=== PATIENT | male | born 1995 | race Two or more races ===

== ENCOUNTER → 2020-04-18 08:24 | Outpatient (BNVA) | payer MEDICAID, SELFPAY | PROVIDERS: PCP Internal Medicine; Visit Provider Surgery | DX: Z76.89 Persons encountering health services in other specified circumstances (principal) ==

== ENCOUNTER → 2020-05-10 09:04 | Outpatient (BNVA) | payer MEDICAID, SELFPAY | PROVIDERS: Visit Provider Dietitian, Registered | DX: Z76.89 Persons encountering health services in other specified circumstances (principal) ==

== ENCOUNTER → 2020-05-17 08:22 | Outpatient (BNVA) | payer MEDICAID, SELFPAY | PROVIDERS: Visit Provider Surgery | DX: Z76.89 Persons encountering health services in other specified circumstances (principal) ==

== ENCOUNTER → 2020-06-09 08:20 | Outpatient (BNVA) | payer MEDICAID, SELFPAY | PROVIDERS: PCP Internal Medicine; Visit Provider Surgery ==

== ENCOUNTER → 2020-06-12 08:22 | Outpatient (BNVA) | payer MEDICAID, SELFPAY | PROVIDERS: PCP Internal Medicine; Visit Provider Dietitian, Registered ==

== ENCOUNTER 2020-10-10 10:50 | Outpatient (REF) | payer MEDICAID, SELFPAY ==
--- NOTE | ~2020-10-10 | XR_ITS ---
EXAMINATION: XR TIBIA AND FIBULA, RIGHT CLINICAL INFORMATION: Right leg pain. COMPARISON: 05/13/2014 TECHNIQUE: AP and lateral views of the right tibia and fibula were obtained. FINDINGS: Again seen is an intramedullary jose david through the length of the tibia with 1 proximal screw and 2 distal screws with 1 entering the fibula. Healed fractures are present involving the distal fibular and tibial diaphyses. Appearances are unchanged when compared to the 2014 study. No new finding is seen to account for increasing pain in the right leg. XR/XR tibia fibula RT 2V IMPRESSION: Stable postoperative findings with healed fractures and hardware, as described above.
== END 2020-10-10 10:51 | disposition home or self-care (01) ==
LOC: HO.XRAY 10:50
PROVIDERS: PCP Internal Medicine; Visit Provider Internal Medicine
DX: M79.604 Pain in right leg (principal)
CPT/HCPCS: 73590

== ENCOUNTER → 2020-10-25 14:56 | Outpatient (REF) | payer MEDICAID, SELFPAY ==
--- NOTE | 2020-10-25 14:59 | CA_ITS ---
Transthoracic Echocardiogram Patient (Last, First, Middle): Evin Martinez, Gender: Male Date of : 1995 Age: 25 Procedure Date: 10/25/2020 Procedure Type: Transthoracic Echocardiogram Location: OP Height: 165.1 cm Weight: 166.47 kg BSA: 2.56 m2 Heart Rate: bpm BP: 134 / 80 mmHg Regulatory Affairs Specialist: Referring MD: Roney Nino MD Symptoms: R60.9 EDEMA Study Quality: Fair ECG Rhythm: Sinus Conclusions: - Normal study Findings Left Ventricle Normal left ventricular size, thickness, and systolic function. The visually estimated ejection fraction is between 60-65%. Spectral Doppler is indicative of a normal filling pattern. Right Ventricle Normal right ventricular cavity size and systolic function. Atria Both atria are normal in size. Interatrial shunt cannot be excluded. Aortic Valve Normal aortic valve structure and function. There is no aortic valve stenosis. There is no aortic valve regurgitation. Mitral Valve Likely normal mitral valve structure and function. There is trace mitral valve regurgitation. There is no mitral valve stenosis. Pulmonic Valve The pulmonic valve was not well visualized. Tricuspid Valve Likely normal tricuspid valve structure and function. There is trace tricuspid valve regurgitation. The right ventricular systolic pressure is normal. The right ventricular systolic pressure is 16 mmHg. Normal right atrial pressure. There is no evidence of pulmonary hypertension. Great Vessels All visible segments of the aorta are normal in size. The pulmonary artery was not well visualized. Venous The inferior vena cava is normal in size and collapses greater than 50% with inspiration. Pericardium/Pleural There is no evidence of pericardial effusion. Prior Study Comparison No prior study available for comparison. Measurements 2D Linear Measurements IVSd: 0.95 0.6-0.9/0.6-1.0 cm LVIDd: 4.33 3.9-5.3/4.2-5.9 cm LVIDd Index: 1.69 2.4-3.2/2.2-3.1 cm/m2 LVIDs: 2.70 2.0-3.6 cm LVPWd: 1.05 0.7-1.1 cm Ao Root: 2.60 2.1-3.5 cm LA Diam: 3.50 2.7-3.8/3.0-4.0 cm LAIDs Index: 1.37 1.5-2.3 cm/m2 LV Mass: 241.14 67-162/88-224 g LV Mass Index: 94.19 43-95/49-115 g/m2 LVOT Diam: 2.00 3.0+(-)1.3 cm Mitral Valve MV Pk E: 1.11 MV PK A: 0.75 MV Decel Time: 155.00 E/A: 1.50 E'Lateral: 14.70 E'Medial: 10.10 E/E' Med: 11.00 E/E' Lat: 7.60 PHT: 45.00 MVA PHT: 4.89 Decel [place]: 7.12 Aortic Valve AoV Pk [place]: 1.68 AoV Mn [place]: 1.03 AoV VTI: 0.32 AoV Pk Grad: 11.00 Aov Mn Grad: 5.00 [place] Cont.VTI: 2.36 LVOT LVOT Pk [place]: 1.28 LVOT Mn [place]: 0.89 LVOT VTI: 0.24 LVOT Pk Grad: 7.00 LVOT Mn Grad: 4.00 LVOT Diam: 2.00 LVOT Area: 3.14 Diastolic Function MV Pk E: 1.11 MV Pk A: 0.75 E/A: 1.50 E'Medial: 10.10 E/E' Med: 11.00 E' Laterial: 14.70 E/E' Lat: 7.60 Tricuspid Valve TR Pk [place]: 1.81 TR Pk Grad: 13.00 RA Press: 3.00 RVSP: 16.00 Great Vessels Aorta Ao Root-2D: 2.60 2.0-3.7 cm Ao Asc: 2.60 2.1-3.4 cm Pulmonary Valve PV Pk [place]: 1.32 Peak PV Grad: 7.00 Updated in Other Vendor System with Status of Final Wayne Wolf MD electronically signed on 10/25/2020 5:04:37 PM with status of Final
== END ==
LOC: HO.CARD 14:56
PROVIDERS: Visit Provider Internal Medicine Cardiovascular Disease
DX: R60.9 Edema, unspecified (principal)
CPT/HCPCS: 93306

== ENCOUNTER 2021-05-30 12:55 | Outpatient (REF) | payer MEDICAID, SELFPAY ==
--- NOTE | ~2021-05-30 | XR_ITS ---
EXAMINATION: XR LUMBOSACRAL SPINE CLINICAL INFORMATION: Low back pain COMPARISON: None. TECHNIQUE: Three views of the lumbosacral spine. FINDINGS: There is normal lumbar lordosis. The vertebral heights, alignment and disc heights are normal. No visible acute fracture, dislocation or subluxation seen. The SI joints are symmetrical and normal The paravertebral soft tissues are normal. XR/XR lumbar spine 2-3V IMPRESSION: Unremarkable lumbar spine examination.
[2021-05-30 13:21] LABS: MANUAL DIFF FLAG NO
[2021-05-30 13:38] LABS: Basophils Absolute Auto 0.1 X10*3/uL (0.0-0.2); Basophils Percent Auto 1.1 % (0-2); Eosinophils Absolute Auto 0.5 X10*3/uL (0.0-0.4); Eosinophils Percent Auto 6.3 % (0-4); Hematocrit 43.1 % (42.0-52.0); Hemoglobin 12.9 g/dl (14.0-18.0); Imm Gran Abs Auto 0.01 X10*3/uL (0.00-0.03); Imm Gran Pct Auto 0.1 % (0.0-0.4); Lymphocytes Absolute Auto 3.2 X10*3/uL (1.2-4.9); Lymphocytes Percent Auto 36.8 % (20-40); Mean Corpuscular HGB Conc 29.9 g/dl (31.0-36.0); Mean Corpuscular Hemoglobin 24.6 pg (27.0-33.0); Mean Corpuscular Volume 82.3 fL (80.0-98.0); Mean Platelet Volume 10.8 fL (9.4-12.4); Monocytes Absolute Auto 0.6 X10*3/uL (0.1-1.2); Monocytes Percent Auto 7.3 % (2-11); Neutrophils Absolute Auto 4.1 x10*3/uL (2.0-8.3); Neutrophils Percent Auto 48.4 % (45-73); Platelet Count 397 X10*3/uL (160-400); Red Blood Count 5.24 X10*6/uL (4.60-5.80); Red Cell Distribution Width 19.4 % (11.0-16.0); White Blood Count 8.6 X10*3/uL (4.8-10.8)
[2021-05-30 13:48] LABS: Estimated Average Glucose 131 mg/dL; Hemoglobin A1C 152.3961 umol/L; Hemoglobin A1c % 6.2 %
[2021-05-30 14:21] LABS: Alanine Aminotransferase 44 U/L (0-40); Albumin Level 4.7 g/dL (3.5-5.0); Alkaline Phosphatase 72 U/L (39-117); Anion Gap 15 (12-20); Aspartate Amino Transferase 28 U/L (5-37); Bilirubin Direct 0.2 mg/dL (0.0-0.5); Bilirubin Total 0.5 mg/dL (0.0-1.0); Blood Urea Nitrogen 15 mg/dL (9-16); Calcium 10.5 mg/dL (8.4-10.2); Carbon Dioxide 28 mmol/L (22-29); Chloride 99 mmol/L (96-108); Cholesterol 220 mg/dL; Estimated Glomerular Filt Rate > 60; Glucose Random 87 mg/dL (60-115); HDL Cholesterol 58 mg/dL; LDL Cholesterol Calculated 135 mg/dl; Potassium 4.2 mmol/L (3.3-5.1); Sodium 138 mmol/L (135-145); Total Protein 8.1 g/dL (6.5-8.0); Triglycerides 139 mg/dL
[2021-05-30 14:39] LABS: Vitamin D 25-OH Total 15.4 ng/mL (>30)
[2021-05-30 15:14] LABS: TSH reflex Free T4 > 100.00 uIU/mL (0.32-4.0)
[2021-05-30 15:58] LABS: Free T4 (Free Thyroxine) < 0.40 ng/dL (0.71-1.85)
== END 2021-05-30 12:56 | disposition home or self-care (01) ==
LOC: HO.XRAY 12:55
PROVIDERS: PCP Internal Medicine; Visit Provider Internal Medicine
DX: Z00.00 Encounter for general adult medical examination without abnormal findings (principal); M54.50 Low back pain, unspecified
CPT/HCPCS: 36415; 72100; 80048; 80061; 80076; 82306; 83036; 84439; 84443; 85025

== ENCOUNTER 2021-07-05 11:13 | Outpatient (REF) | payer MEDICAID, SELFPAY ==
--- NOTE | ~2021-07-05 | XR_ITS ---
EXAMINATION: XR TIBIA AND FIBULA, LEFT CLINICAL INFORMATION: Injury, pain COMPARISON: Radiographs left lower leg 06/03/2013 TECHNIQUE: Left lower leg is imaged in 2 AP views and 2 lateral views for a total of 4 views. FINDINGS: There is old distal tibial shaft fracture is reduced with intramedullary jose david and proximal and distal interlocking screws. The hardware is intact. Fracture shows osseous union. There is a healed fracture also of the distal fibular shaft with a bony bar intraosseous region between the fibula and tibia near the fracture sites. There is no acute fracture or dislocation or destructive process. No osteolysis. No periostitis. The ankle mortise is symmetric. The subtalar joint is unremarkable. There is incidental os trigonum again developmental variant. The retrocalcaneal recess is preserved. XR/XR tibia fibula LT 2V IMPRESSION: Old healed fractures distal tibia and fibula. Hardware intact. No acute fracture, dislocation, destructive process.
== END 2021-07-05 11:14 | disposition home or self-care (01) ==
LOC: HO.XRAY 11:13
PROVIDERS: PCP Internal Medicine; Visit Provider Internal Medicine
DX: M79.605 Pain in left leg (principal); M79.604 Pain in right leg
CPT/HCPCS: 73590

== ENCOUNTER → 2021-07-09 13:25 | Outpatient (BNVA) | payer MEDICAID, SELFPAY | PROVIDERS: PCP Internal Medicine; Visit Provider Orthopaedic Surgery | DX: R60.0 Localized edema (principal); E66.01 Morbid (severe) obesity due to excess calories; S82.302S Unspecified fracture of lower end of left tibia, sequela; Z68.41 Body mass index [BMI] 40.0-44.9, adult | CPT/HCPCS: 99202 ==

== ENCOUNTER 2021-08-02 12:07 | Outpatient (REF) | payer MEDICAID, SELFPAY ==
--- NOTE | ~2021-08-02 | US_ITS ---
EXAMINATION: US VENOUS ULTRASOUND WITH DOPPLER LOWER EXTREMITY, BILATERAL CLINICAL INFORMATION: Lower extremity edema. COMPARISON: None TECHNIQUE: Ultrasound of the deep veins is performed from the hip to the calf with compression sonography and color and pulse Doppler assessment. Spectral analysis with color-flow imaging is performed. FINDINGS: Right common femoral vein: Compressible, normal color flow, normal augmentation. Proximal right great saphenous vein: Patent, normal color flow. Right profunda femoris vein: Patent, normal color flow. Right femoral vein: Compressible, normal color flow, appropriate augmentation. Right popliteal vein: Compressible, normal color flow, appropriate augmentation. Right posterior tibial vein: Normal color flow. Normal compressibility. Right peroneal vein: Normal color flow. Normal compressibility LEFT LEG: Left common femoral vein: Compressible, normal color flow, normal augmentation. Proximal left great saphenous vein: Patent, normal color flow. Left profunda femoris vein: Patent, normal color flow. Left femoral vein: Compressible, normal color flow, appropriate augmentation. Left popliteal vein: Compressible, normal color flow, appropriate augmentation. Left posterior tibial veins: Normal color flow. Normal compressibility Left peroneal veins: Not visualized due to body habitus. US/US venous duplex LE BI IMPRESSION: No definite evidence of DVT involving either lower extremity. The left peroneal veins are not visualized. If the patient's symptoms persist, followup ultrasound in 5 days 7 days might be of value to exclude proximal propagation from a non-visualized calf vein.
== END 2021-08-02 12:08 | disposition home or self-care (01) ==
LOC: HO.US 12:07
PROVIDERS: Visit Provider Orthopaedic Surgery
DX: R60.0 Localized edema (principal); E66.01 Morbid (severe) obesity due to excess calories
CPT/HCPCS: 93970

== ENCOUNTER → 2022-01-10 12:49 | Outpatient (BNVA) | payer MEDICAID, SELFPAY | PROVIDERS: PCP Internal Medicine; Referring Provider Internal Medicine; Visit Provider Physician Assistant | DX: E66.01 Morbid (severe) obesity due to excess calories (principal); E03.9 Hypothyroidism, unspecified; J45.909 Unspecified asthma, uncomplicated; G47.30 Sleep apnea, unspecified; E11.9 Type 2 diabetes mellitus without complications; Z68.44 Body mass index [BMI] 60.0-69.9, adult | CPT/HCPCS: 83013; 99212 ==

== ENCOUNTER 2022-01-10 17:40 | Outpatient (REF) | payer MEDICAID, SELFPAY ==
[2022-01-11 16:51] LABS: H Pylori Breath Test Negative (Negative)
== END 2022-01-10 17:41 | disposition home or self-care (01) ==
LOC: HO.LNP 17:40
PROVIDERS: Visit Provider Physician Assistant
DX: E03.9 Hypothyroidism, unspecified (principal); E11.9 Type 2 diabetes mellitus without complications; E66.01 Morbid (severe) obesity due to excess calories; G47.30 Sleep apnea, unspecified; J45.909 Unspecified asthma, uncomplicated
CPT/HCPCS: 83013

== ENCOUNTER → 2022-02-01 13:45 | Outpatient (BNVA) | payer MEDICAID, SELFPAY | PROVIDERS: PCP Internal Medicine; Visit Provider Dietitian, Registered | DX: E66.01 Morbid (severe) obesity due to excess calories (principal) | CPT/HCPCS: 97802 ==

== ENCOUNTER → 2022-03-01 13:40 | Outpatient (BNVA) | payer MEDICAID, SELFPAY | PROVIDERS: PCP Internal Medicine; Referring Provider Physician Assistant; Visit Provider Dietitian, Registered | DX: E66.01 Morbid (severe) obesity due to excess calories (principal) | CPT/HCPCS: 97803 ==

== ENCOUNTER 2022-07-19 11:48 | Emergency (ER) | payer MEDICAID, SELFPAY ==
--- NOTE | ~2022-07-19 | US_ITS ---
EXAMINATION: US VENOUS ULTRASOUND WITH DOPPLER LOWER EXTREMITY, BILATERAL CLINICAL INFORMATION: Bilateral leg swelling COMPARISON: October 02, 2021 TECHNIQUE: Ultrasound of the deep veins is performed from the hip to the calf with compression sonography and color and pulse Doppler assessment. Spectral analysis with color-flow imaging is performed. FINDINGS: There is some limitations to the study due to body habitus with edema of the legs. RIGHT: There is normal venous compression and respiratory variation and augmented flow. The visualized common femoral vein, superficial femoral vein, profunda femoral vein, popliteal vein, and the trifurcation region shows no evidence of deep venous thrombosis. There is no significant popliteal fossa cyst. No popliteal artery aneurysm LEFT: There is normal venous compression and respiratory variation and augmented flow. The visualized common femoral vein, superficial femoral vein, profunda femoral vein, popliteal vein, and the trifurcation region shows no evidence of deep venous thrombosis. There is no significant popliteal fossa cyst. Artery aneurysm US/US venous duplex LE BI IMPRESSION: No acute DVT demonstrated in the bilateral lower extremity.
--- NOTE | ~2022-07-19 | XR_ITS ---
EXAMINATION: XR CHEST CLINICAL INFORMATION: Pedal edema. COMPARISON: None available. TECHNIQUE: 2 views of the chest were obtained. FINDINGS: No significant abnormality is noted involving the heart, lungs, mediastinum, bony thorax or soft tissues. XR/XR chest 2V IMPRESSION: Unremarkable chest examination.
[2022-07-19 12:01] VITALS: BP 132/96; PULSE 85; RESP 18; TEMP 36.5; O2SAT 95; BMI 63.3
--- NOTE | 2022-07-19 12:03 | ED_ITS ---
HPI - General Adult General Chief complaint: Extremity Problem <KWADWO Abreu - Last Filed: 07/19/22 12:04> Stated complaint: swollen/pain in feet <KWADWO Abreu - Last Filed: 07/19/22 12:04> Time Seen by Provider: 07/19/22 12:26 <KWADWO Abreu - Last Filed: 07/19/22 12:04> History of Present Illness HPI narrative: patient with long history of pedal edema, has water pills at home but he stopped taking them as they make him urinate, comes today as legs are more swollen than normal bilaterally, he has no shortness of breath no difficulty br eathing no recent injury no chest pain, both legs ached the same, denies any fever denies any wound, no back pain no numbness or weakness <KWADWO Mcgovern - Last Filed: 07/20/22 14:15> Related Data Home medications: Home Medications Medication Instructions Recorded Confirmed cyclobenzaprine 10 mg tablet 10 mg PO TID 07/09/21 01/10/22 ferrous sulfate 325 mg (65 mg 325 mg PO BID 07/09/21 01/10/22 iron) tablet (FeroSul) hydrochlorothiazide 25 mg tablet 25 mg PO DAILY 07/09/21 01/10/22 metformin 500 mg tablet 500 mg PO BID 07/09/21 01/10/22 Previous Rx's Medication Instructions Recorded levothyroxine 50 mcg capsule 50 mcg PO DAILY #1 cap 04/18/20 <KWADWO Abreu - Last Filed: 07/19/22 12:04> Allergies/adverse reactions: Allergies Allergy/AdvReac Type Severity Reaction Status Date / Time No Known Allergies Allergy Verified 07/19/22 12:01 [No Known Allergies*] <KWADWO Abreu - Last Filed: 07/19/22 12:04> [facility] Past Medical History PMFSH Narrative: Has prior history of pedal edema <KWADWO Mcgovern - Last Filed: 07/03 12/25 14:15> Source: nursing notes reviewed <KWADWO Mcgovern - Last Filed: 07/20/22 14:15> Medical History: Medical History Asthma Back pain Hypothyroidism Prediabetes Sleep apnea with use of continuous positive airway pressure (CPAP) <KWADWO Abreu - Last Filed: 07/19/22 12:04> Surgical History: Surgical History Morbid obesity <KWADWO Abreu - Last Filed: 07/19/22 12:04> Family History Family History: Family History Mother Amputated right leg Father No problems noted. Brother No problems noted. Brother No problems noted. Sister No problems noted. <KWADWO Abreu - Last Filed: 07/19/22 12:04> Social History Social History: Social History (Updated 01/10/22 @ 13:15 by Evelyn Vuong 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 <KWADWO Abreu - Last Filed: 07/19/22 12:04> Physical Exam ED Vital Signs: Vital Signs - 24 hr 07/19/22 12:01 07/19/22 14:00 Temperature 97.7 F Pulse Rate 85 95 Respiratory Rate 18 18 Blood Pressure 132/96 H 137/82 Pulse Oximetry 95 97 Oxygen Delivery Method Room Air Room Air BMI result Body Mass Index 63.3 <KWADWO Abreu - Last Filed: 07/19/22 12:04> Vital Signs - 24 hr 07/19/22 12:01 07/19/22 14:00 Temperature 97.7 F Pulse Rate 85 95 Respiratory Rate 18 18 Blood Pressure 132/96 H 137/82 Pulse Oximetry 95 97 Oxygen Delivery Method Room Air Room Air BMI result Body Mass Index 63.3 <KWADWO Mcgovern - Last Filed: 07/20/22 14:15> General appearance is no acute distress The pharynx is clear no redness swelling or exudate The neck no JVD The chest is clear to auscultation with full symmetrical equal breath sounds no adventitious sounds Heart no murmur auscultated Abdomen soft nontender Extremities there is 2+ pitting edema in both legs, there is no significant calf tenderness, there is no open wound, pulses are 2+ in distal extremities, symmetric, neurovascular intact, no redness or fluctuance no sign of abscess or cellulitis, neurovascular intact distal Skin no rash Neuro no focal motor sensory deficits <KWADWO Mcgovern Filed: 07/20/22 14:15> Course Course Course Narrative: RME performed by Sheila Kimble PA-C. Patient is a 26 year old male presenting to the emergency department with increased leg swelling and pain. Patient states that he is supposed to be taking medication to help with the fluid but he is very inconsistent about taking it. Patient states that now his right leg is hurting. Labs and US ordered. Patient placed back in the waiting room pending room availability and results. <KWADWO Abreu Last Filed: 07/19/22 12:04> RME performed by Sheila Kimble PA-C. Patient is a 26 year old male presenting to the emergency department with increased leg swelling and pain. Patient states that he is supposed to be taking medication to help with the fluid but he is very inconsistent about taking it. Patient states that now his right leg is hurting. Labs and US ordered. Patient placed back in the waiting room pending room availability and results. patient was evaluated in the emergency room for bilateral pedal edema, ultrasound of both legs did not show any clot, lab work work showed normal renal and liver function, BNP was normal, chest x-ray was normal, patient's only complaint is the chronic leg swelling which he has had for several years He is advised that quality of life requires a balance between his water pill and frequent urination and he should discuss that with the doctor, but right now I suggested that he restart his water pill for least a few days to reduce the swelling in his legs, there was no sign of infection and patient is discharged to take his regular medication and follow with his doctor to discuss medication adjustments if needed He is comfortable well appearing breathing easily ambulating easily and is discharged <KWADWO Mcgovern Filed: 07/20/22 14:15> Medical Decision Making Lab Data MDM Lab Attestation statement: I reviewed the patient's lab results. <KWADWO Mcgovern Filed: 07/20/22 14:15> Result Diagrams: 07/19/22 12:45 07/19/22 12:45 <KWADWO Abreu Filed: 07/19/22 12:04> Labs: Lab Results 07/19/22 07/19/22 07/19/22 Range/Units 12:45 12:45 12:46 WBC 8.2 (4.8-10.8) X10*3/uL RBC 5.23 (4.60-5.80) X10*6/uL Hgb 12.9 L (14.0-18.0) g/dl Hct 42.0 (42.0-52.0) % MCV 80.3 (80.0-98.0) fL MCH 24.7 L (27.0-33.0) pg MCHC 30.7 L (31.0-36.0) g/dl RDW 15.6 (11.0-16.0) % Plt Count 462 H (160-400) X10*3/uL MPV 10.4 (9.4-12.4) fL Immature Gran % (Auto) 0.2 (0.0-0.4) % Neut % (Auto) 54.3 (45-73) % Lymph % (Auto) 29.4 (20-40) % [place] % (Auto) 8.3 (2-11) % Eos % (Auto) 6.9 H (0-4) % Baso % (Auto) 0.9 (0-2) % Lymph # (Auto) 2.4 (1.2-4.9) X10*3/uL [place] # (Auto) 0.7 (0.1-1.2) X10*3/uL Eos # (Auto) 0.6 H (0.0-0.4) X10*3/uL Baso # (Auto) 0.1 (0.0-0.2) X10*3/uL Abs Immat Gran (auto) 0.02 (0.00-0.03) X10*3/uL Absolute Neuts (auto) 4.4 (2.0-8.3) x10*3/uL Absolute Nucleated RBC 0.000 (0.0-0.012) X10*3/uL Nucleated RBC % (auto) 0.0 (0.0-0.2) /100WBC Sodium 139 (135-145) mmol/L Potassium 4.3 (3.3-5.1) mmol/L Chloride 101 (96-108) mmol/L Carbon Dioxide 30 H (22-29) mmol/L Anion Gap 12 (12-20) BUN 12 (9-16) mg/dL Creatinine 0.85 (0.5-1.4) mg/dL Estim Creat Clear Calc 195.6 Estimated GFR > 60 Random Glucose 88 (60-115) mg/dL Calcium 9.6 D (8.4-10.2) mg/dL Magnesium 2.1 (1.6-2.6) mg/dL Total Bilirubin 0.3 (0.0-1.0) mg/dL AST 18 (5-37) U/L ALT 39 (0-40) U/L Alkaline Phosphatase 79 (39-117) U/L B-Natriuretic Peptide 11 (<100) pg/mL Total Protein 7.0 (6.5-8.0) g/dL Albumin 4.0 (3.5-5.0) g/dL <KWADWO Abreu - Last Filed: 07/19/22 12:04> Lab Results 07/19/22 07/19/22 07/19/22 Range/Units 12:45 12:45 12:46 WBC 8.2 (4.8-10.8) X10*3/uL RBC 5.23 (4.60-5.80) X10*6/uL Hgb 12.9 L (14.0-18.0) g/dl Hct 42.0 (42.0-52.0) % MCV 80.3 (80.0-98.0) fL MCH 24.7 L (27.0-33.0) pg MCHC 30.7 L (31.0-36.0) g/dl RDW 15.6 (11.0-16.0) % Plt Count 462 H (160-400) X10*3/uL MPV 10.4 (9.4-12.4) fL Immature Gran % (Auto) 0.2 (0.0-0.4) % Neut % (Auto) 54.3 (45-73) % Lymph % (Auto) 29.4 (20-40) % [place] % (Auto) 8.3 (2-11) % Eos % (Auto) 6.9 H (0-4) % Baso % (Auto) 0.9 (0-2) % Lymph # (Auto) 2.4 (1.2-4.9) X10*3/uL [place] # (Auto) 0.7 (0.1-1.2) X10*3/uL Eos # (Auto) 0.6 H (0.0-0.4) X10*3/uL Baso # (Auto) 0.1 (0.0-0.2) X10*3/uL Abs Immat Gran (auto) 0.02 (0.00-0.03) X10*3/uL Absolute Neuts (auto) 4.4 (2.0-8.3) x10*3/uL Absolute Nucleated RBC 0.000 (0.0-0.012) X10*3/uL Nucleated RBC % (auto) 0.0 (0.0-0.2) /100WBC Sodium 139 (135-145) mmol/L Potassium 4.3 (3.3-5.1) mmol/L Chloride 101 (96-108) mmol/L Carbon Dioxide 30 H (22-29) mmol/L Anion Gap 12 (12-20) BUN 12 (9-16) mg/dL Creatinine 0.85 (0.5-1.4) mg/dL Estim Creat Clear Calc 195.6 Estimated GFR > 60 Random Glucose 88 (60-115) mg/dL Calcium 9.6 D (8.4-10.2) mg/dL Magnesium 2.1 (1.6-2.6) mg/dL Total Bilirubin 0.3 (0.0-1.0) mg/dL AST 18 (5-37) U/L ALT 39 (0-40) U/L Alkaline Phosphatase 79 (39-117) U/L B-Natriuretic Peptide 11 (<100) pg/mL Total Protein 7.0 (6.5-8.0) g/dL Albumin 4.0 (3.5-5.0) g/dL <KWADWO Mcgovern - Last Filed: 07/20/22 14:15> Discharge Plan Discharge Clinical Impression: Pedal edema <KWADWO Abreu - Last Filed: 07/19/22 12:04> Patient Disposition: Home, Self-Care <KWADWO Abreu - Last Filed: 07/19/22 12:04> Additional Instructions: ultrasound was normal, no blood clot in the legs Lab work showed normal kidneys normal liver, no evidence of heart failure, chest x-ray was normal Best plan is to take her water pill to get some fluid away from her legs and discuss with your primary doctor if you need any medication adjustments to find a balance between frequent urination and leg swelling, water pills do cause more frequent urination Return any time any worse condition or any concerns <KWADWO Abreu - Last Filed: 07/19/22 12:04> Prescriptions: No Action levothyroxine 50 mcg capsule 50 mcg PO DAILY Qty: 1 0RF cyclobenzaprine 10 mg tablet 10 mg PO TID ferrous sulfate [FeroSul] 325 mg (65 mg iron) tablet 325 mg PO BID hydrochlorothiazide 25 mg tablet 25 mg PO DAILY metformin 500 mg tablet 500 mg PO BID <KWADWO Abreu - Last Filed: 07/19/22 12:04> Interventions: ED Discharge Assessment Last Done: 07/19/22 14:59 <KWADWO Abreu - Last Filed: 07/19/22 12:04> Discharge Date/Time: 07/19/22 14:59 <KWADWO Abreu - Last Filed: 07/19/22 12:04>
--- NOTE | 2022-07-19 12:46 | PC.NURSE ---
pt presents with lower extremity pain and edema. labs drawn. ultrasound with pt
[2022-07-19 12:53] LABS: MANUAL DIFF FLAG NO
[2022-07-19 12:59] LABS: Basophils Absolute Auto 0.1 X10*3/uL (0.0-0.2); Basophils Percent Auto 0.9 % (0-2); Eosinophils Absolute Auto 0.6 X10*3/uL (0.0-0.4); Eosinophils Percent Auto 6.9 % (0-4); Hemoglobin 12.9 g/dl (14.0-18.0); Imm Gran Abs Auto 0.02 X10*3/uL (0.00-0.03); Imm Gran Pct Auto 0.2 % (0.0-0.4); Lymphocytes Absolute Auto 2.4 X10*3/uL (1.2-4.9); Lymphocytes Percent Auto 29.4 % (20-40); Mean Corpuscular HGB Conc 30.7 g/dl (31.0-36.0); Mean Corpuscular Hemoglobin 24.7 pg (27.0-33.0); Mean Corpuscular Volume 80.3 fL (80.0-98.0); Mean Platelet Volume 10.4 fL (9.4-12.4); Monocytes Absolute Auto 0.7 X10*3/uL (0.1-1.2); Monocytes Percent Auto 8.3 % (2-11); Neutrophils Absolute Auto 4.4 x10*3/uL (2.0-8.3); Neutrophils Percent Auto 54.3 % (45-73); Platelet Count 462 X10*3/uL (160-400); Red Blood Count 5.23 X10*6/uL (4.60-5.80); Red Cell Distribution Width 15.6 % (11.0-16.0); White Blood Count 8.2 X10*3/uL (4.8-10.8)
[2022-07-19 13:11] LABS: Alanine Aminotransferase 39 U/L (0-40); Alkaline Phosphatase 79 U/L (39-117); Anion Gap 12 (12-20); Aspartate Amino Transferase 18 U/L (5-37); Bilirubin Total 0.3 mg/dL (0.0-1.0); Blood Urea Nitrogen 12 mg/dL (9-16); Calcium 9.6 mg/dL (8.4-10.2); Carbon Dioxide 30 mmol/L (22-29); Chloride 101 mmol/L (96-108); Creatinine Clr Calc Pharmacy 195.6; Estimated Glomerular Filt Rate > 60; Glucose Random 88 mg/dL (60-115); Magnesium 2.1 mg/dL (1.6-2.6); Potassium 4.3 mmol/L (3.3-5.1); Sodium 139 mmol/L (135-145)
[2022-07-19 13:16] LABS: B Type Natriuretic Peptide 11 pg/mL (<100)
[2022-07-19 14:00] VITALS: BP 137/82; PULSE 95; RESP 18; O2SAT 97
== END 2022-07-19 14:59 | disposition home or self-care (01) ==
PROVIDERS: Physician Assistant Medical; Emergency Provider Emergency Medicine; PCP Internal Medicine
DX: R60.0 Localized edema (principal); R06.02 Shortness of breath; Z79.899 Other long term (current) drug therapy
CPT/HCPCS: 36415; 71046; 80053; 83735; 83880; 85025; 93970; 99284

== ENCOUNTER 2022-09-20 11:25 | Emergency (ER) | payer MEDICAID, SELFPAY ==
[2022-09-20 11:31] VITALS: BP 151/96; PULSE 111; RESP 18; TEMP 36.1; O2SAT 98; BMI 68.2
--- NOTE | 2022-09-20 12:13 | ED.EXTPRO ---
HPI - Extremity Problem General Chief complaint: Extremity Problem Stated complaint: R Shoulder Arm Pain No Injury Time Seen by Provider: 09/20/22 11:44 Source: patient Mode of arrival: ambulatory Limitations: language barrier History of Present Illness HPI Narrative: 27-year-old with a past medical history of GEETHA on CPAP, asthma, hypothyroid, chronic back pain presents to the emergency department with complaints of right shoulder pain x 3 days. He reports he was evaluated at a walk-in clinic yesterday and prescribed [id number] analgesics and provided with contact information for insurance billing specialist. He states he has been taking the medication and has not had any relief in pain. He reports he sleeps at his aunt's house, on a mattress, on the floor and that he has been having difficulty sleeping due to pain. He denies any known injury or trauma to his neck, upper back, or shoulder. He denies any paresthesias but endorses difficulty with range of motion due to pain. He otherwise denies any fevers, chills, chest pain, shortness of breath, headache, vision changes. Pertinent positives and negatives discussed HPI. Related Data Home Medications Medication Instructions Recorded Confirmed cyclobenzaprine 10 mg tablet 10 mg PO TID 07/09/21 01/10/22 ferrous sulfate 325 mg (65 mg 325 mg PO BID 07/09/21 01/10/22 iron) tablet (FeroSul) hydrochlorothiazide 25 mg tablet 25 mg PO DAILY 07/09/21 01/10/22 metformin 500 mg tablet 500 mg PO BID 07/09/21 01/10/22 Previous Rx's Medication Instructions Recorded levothyroxine 50 mcg capsule 50 mcg PO DAILY #1 cap 04/18/20 Allergies Allergy/AdvReac Type Severity Reaction Status Date / Time No Known Allergies Allergy Verified 07/19/22 12:01 [No Known Allergies*] Review of Systems Review of Systems: Yes all other systems are reviewed and are negative PMFSH Past Medical History Attestation statement: The following information was validated with the patient. Source: old records reviewed and nursing notes reviewed Medical History Asthma Back pain Hypothyroidism Prediabetes Sleep apnea with use of continuous positive airway pressure (CPAP) Surgical History Morbid obesity Family History Family History Mother Amputated right leg Father No problems noted. Brother No problems noted. Brother No problems noted. Sister No problems noted. 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 GENERAL APPEARANCE: A&0 x 4, generally well appearing, no acute distress HENMT: Normal to inspection, atraumatic, face symmetrical. Normal external ears, nose, and oropharynx clear. EYE: PERRLA, EOM intact, structures appear normal NECK: Supple without lymphadenopathy. No stiffness or restricted ROM. CHEST: Normal to inspection HEART: Normal rate and regular rhythm, normal S1/S2, no M/R/G LUNGS: LS CTA, moving air well. Able to speak in complete sentences. No crackles, wheezes, or rhonchi auscultated ABDOMEN: Soft, nontender, nondistended. Normal bowel sounds noted BACK: No CVAT, no obvious deformity EXTREMITIES: Difficulty with range of motion in right shoulder due to discomfort. No cyanosis, clubbing, or edema. Normal capillary refill. NEUROLOGICAL: Alert and oriented, moving all 4 extremities. CN not formally tested but appearing grossly intact. Observed to ambulate with normal gait using cane. Cognition normal SKIN: Warm and dry without any lesions, rash, or visible sores PSYCH: Cooperative, normal affect, normal thought process Medical Decision Making Medical Decision Making [facility] Narrative: 1210: Old records reviewed for previous imaging, lab studies, ECGs, or notes. Patient was assessed the emergency department. No acute distress or toxicity noted. Patient is A&O x4, LS CTA, able to move right shoulder with discomfort noted. HPI and PE consistent with acute right shoulder strain with a low suspicion for ligament or tendon injury, fracture, or dislocation. Patient is safe for discharge at this time with plan for [id number] Tylenol and/or NSAID such as ibuprofen or naproxen for fever/discomfort with dosing as per packaging. HPI, PE, diagnostics, and plan discussed with patient and family with no unanswered questions at this time. Strict return precautions given to return to the emergency department with new, worsening, or concerning emergent symptoms. Recommended to follow-up with there primary care provider in 24-48 hours in addition to specialist for further treatment and management. Differential Diagnosis see above Discharge Plan Discharge Clinical Impression: Muscle strain of right shoulder region Patient Disposition: Home, Self-Care Instructions: Acetaminophen (By mouth), Ibuprofen (By mouth), Muscle Strain (ED), Cold Compress or Soak (ED) Prescriptions: No Action levothyroxine 50 mcg capsule 50 mcg PO DAILY Qty: 1 0RF cyclobenzaprine 10 mg tablet 10 mg PO TID ferrous sulfate [FeroSul] 325 mg (65 mg iron) tablet 325 mg PO BID hydrochlorothiazide 25 mg tablet 25 mg PO DAILY metformin 500 mg tablet 500 mg PO BID Referrals: Floresita Potter MD [Primary Care Provider] - Print Language: [place]
== END 2022-09-20 12:21 | disposition home or self-care (01) ==
PROVIDERS: Emergency Provider Emergency Medicine Emergency Medical Services; PCP Internal Medicine
DX: M25.511 Pain in right shoulder (principal)
CPT/HCPCS: 99282

== ENCOUNTER 2022-10-10 12:16 | Outpatient (REF) | payer MEDICAID, SELFPAY | END 2022-10-10 12:17 | disposition home or self-care (01) | LOC: HO.HOSX 12:16 | PROVIDERS: Visit Provider Orthopaedic Surgery | DX: Z13.89 Encounter for screening for other disorder (principal) ==

== ENCOUNTER 2022-10-24 09:45 | Outpatient (REF) | payer MEDICAID, SELFPAY ==
--- NOTE | ~2022-10-24 | XR_ITS ---
EXAMINATION: XR TIBIA AND FIBULA, LEFT CLINICAL INFORMATION: Unspecified fracture of the shaft of the unspecified tibia, initial encounter. COMPARISON: 07/05/2021 TECHNIQUE: AP and lateral views of the left tibia and fibula were obtained. FINDINGS: Antegrade intramedullary nail is again seen in the tibia with one proximal and one distal interlocking screw. Hardware is intact. There is solid osseous union at the old, healed distal tibial shaft fracture and distal fibular shaft fracture with focal osseous bridging across the interosseous membrane in this region. This appearance is unchanged as compared to prior. The imaged portions of the knee and ankle joints are unremarkable with relative preservation of the joint spaces. No acute osseous findings. No acute fractures or evidence of osteomyelitis. There is diffuse soft tissue swelling in the lower extremity from the knee through the ankle with subcutaneous edema. No subcutaneous gas. XR/XR tibia fibula LT 2V IMPRESSION: 1. Old, healed distal tibial and fibular shaft fractures status post intramedullary nail fixation of the tibia. No acute osseous findings. 2. Diffuse soft tissue swelling in the left lower extremity.
--- NOTE | ~2022-10-24 | US_ITS ---
EXAMINATION: RIGHT and LEFT LOWER EXTREMITY VENOUS ULTRASOUND (Reflux Exam) CLINICAL INDICATION: leg pain and varicose veins. COMPARISON: Previous exam most recent July 2022 TECHNIQUE: Color flow triplex imaging and compression Doppler was performed to evaluate both the deep and the superficial systems bilaterally. To evaluate the superficial system, the examination was performed in the upright position. Color-flow Doppler ultrasound and compression ultrasound were utilized. In addition, maneuvers were utilized to demonstrate reflux. Exam is limited due to patient body habitus. FINDINGS: 1. DEEP VENOUS ULTRASOUND OF THE RIGHT LOWER EXTREMITY: Respiratory variation, normal compression and augmented flow are noted in the right common femoral vein as well as the right popliteal vein and there is no evidence of deep venous thrombosis at these locations. There is no evidence of reflux in the deep system in either the common femoral vein or the popliteal vein. There is no evidence of a Dolan's cyst. 2. SUPERFICIAL ULTRASOUND WITH DOPPLER OF RIGHT LOWER EXTREMITY: The right great saphenous vein at the saphenofemoral junction measures 8 mm, at the mid thigh 2 mm, xuyal-iuv-ziwd 4 mm, efznt-vmi-vskq 2 mm, at mid calf 3 mm and at the ankle measures 2 mm. There is no reflux demonstrated in the right great saphenous vein. Accessory lateral greater saphenous vein that measures 2 to 7 mm and does not demonstrate reflux. The right small saphenous vein measures 2-3 mm and shows no reflux. 3. DEEP VENOUS ULTRASOUND OF THE LEFT LOWER EXTREMITY: Respiratory variation, normal compression and augmented flow are noted in the left common femoral vein as well as the left popliteal vein and there is no evidence of deep venous thrombosis at these locations. There is no evidence of reflux in the deep system in either the common femoral vein or the popliteal vein. . There is no evidence of a Dolan's cyst. 4. SUPERFICIAL ULTRASOUND WITH DOPPLER OF LEFT LOWER EXTREMITY: Left great saphenous vein at the saphenofemoral junction measures 9 mm, at the mid thigh 6 mm, vkhir-han-sjvh 4 mm, zddje-aua-dqlw 3 mm, at mid calf 2 mm and at the ankle measures 3 mm. There is no reflux demonstrated in the left great saphenous vein. There is an accessory lateral greater saphenous vein that measures 4 to 6 mm and does not demonstrate reflux. The left small saphenous vein measures 3-6 mm and shows no reflux. US/US venous duplex LE BI IMPRESSION: Limited exam. 1. No evidence of reflux or thrombus in the common femoral veins or popliteal veins bilaterally. 2. The saphenous systems are competent bilaterally.
== END 2022-10-24 09:46 | disposition home or self-care (01) ==
LOC: HO.US 09:45
PROVIDERS: Visit Provider Internal Medicine
DX: S82.202A Unspecified fracture of shaft of left tibia, initial encounter for closed fracture (principal); I87.2 Venous insufficiency (chronic) (peripheral); I10 Essential (primary) hypertension; X58.XXXA Exposure to other specified factors, initial encounter; Y93.9 Activity, unspecified; Y92.9 Unspecified place or not applicable; Y99.9 Unspecified external cause status
CPT/HCPCS: 73590; 93970

== ENCOUNTER 2022-12-17 13:30 | Outpatient (AMB) | payer MEDICAID, SELFPAY ==
--- NOTE | 2022-12-17 13:58 | MHC.OFFVIS ---
Intake Intake Visit Reasons: SPEECH LANGUAGE SPECIALIST/HHC for PVD Intake Note: Patient is here for a SPEECH LANGUAGE SPECIALIST/HHC for PVD, patient c/o Robert LE pain and swelling, patient c/o sensitivity on certain areas of the leg. patient stated symptoms started about 2 years now, patient recently diagnosed with diabetes, patient is a former smoker, no hx blood clots. pt unable to walk a whole block due to overweight and leg pain. Drawing Operator Required: Yes Drawing Operator Name: Arlette Yevgeniy CLKarey Allergies No Known Allergies [No Known Allergies*] Allergy (Verified 12/17/22 14:04) HPI SPEECH LANGUAGE SPECIALIST/HHC for PVD HPI Details Super morbidly obese 27-year-old gentleman presents for evaluation regarding lower extremity pain. He was actually concerned about the pain in his legs and he had some discoloration. He did have venous insufficiency workup on 10/24 which was essentially negative. He reports generalized discomfort and bilateral lower extremities. He is able to walk about a block. Of note he is a nonsmoker and newly diagnosed diabetic. He now presents to us for vascular evaluation. [facility] Medical History Asthma Back pain Hypothyroidism Prediabetes Sleep apnea with use of continuous positive airway pressure (CPAP) Surgical History Morbid obesity Family History Mother Amputated right leg Father No problems noted. Brother No problems noted. Brother No problems noted. Sister No problems noted. 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 Review of Systems Const All systems reviewed & are unremarkable except as noted in HPI and below Reports no additional complaints ENT Reports Normal hearing present Card Denies chest pain, Denies chest pain at rest, Denies chest pain with activity and Denies pedal edema Resp Denies cough GI Denies abdominal pain Musc Denies abnormal gait, Denies muscle cramps and Denies radiating pain into limb Skin/Breast Denies skin ulcer and Denies wounds Neuro Reports Normal hearing present and Denies abnormal gait Psych Reports no additional complaints Physical Exam Const General: cooperative, healthy appearing and comfortable Orientation/consciousness: oriented to person, oriented to place and oriented to time HEENT Head: Yes normal to inspection Neck Neck: Yes normal visual inspection Carotids: no bruits Chest Chest palpation & inspection: normal inspection of the chest Resp Effort & Inspection: normal respiratory effort and able to speak in complete sentences Auscultation: clear to auscultation bilaterally, no crackles, no rales, no rhonchi and no wheezes Cardio Other: DP and PT signal Rate: regular rate Rhythm: regular rhythm Heart sounds: S1 normal heart sound present and S2 normal heart sound present Bruits: no carotid bruits GI Inspection: Yes normal to inspection Skin Wounds: no wounds Hair: normal Neuro General: oriented to person, oriented to place and oriented to time Cranial nerves: Yes CN's II-XII intact bilaterally and Yes Normal hearing present Cognition (Neuro): normal cognition Motor exam (neuro): 5/5 motor strength present throughout Extrem Other: venous exam: No significant superficial varicosities +2 edema General: No clubbing, No cyanosis and Yes edema Psych Appearance: grossly normal Mental Status: mental status grossly normal Speech and movement: Normal speech and movement present Results Reviewed Results Reviewed: Venous insufficiency testing of 10/24/2022 was essentially negative. Written report and images were reviewed. Assessment & Plan Assessment & Plan (1) PAD (peripheral artery disease): Code(s): I73.9 - Peripheral vascular disease, unspecified Plan: In short patient may have an element of PA D as he does have a diagnosis of diabetes. I was unable to appreciate palpable pulses although there was quite a bit of edema on the lower extremities. I have taken the liberty of ordering noninvasive arterial testing to rule that out. He will follow up with us after testing. (2) Lymphedema: Code(s): I89.0 - Lymphedema, not elsewhere classified Plan: Patient may have an element of lymphedema. Venous testing has shown to be negative. He is super morbidly obese and does have a fair amount of swelling. In addition he does have prior history of lower extremity fractures as well. Patient will be worked up for arterial disease should that prove to be negative may benefit from lymphedema pumps. In addition we did discuss weight loss and he is being seen by bariatric team as well. Thank you for allowing us to assist in his care. Orders: Orders US arterial duplex LE BI 1 Week I73.9 - Peripheral vascular disease, unspecified Coding Level of Care Code New Pt Level 4 (34455) Diagnoses PAD (peripheral artery disease) I73.9 Lymphedema I89.0
== END 2022-12-17 14:20 | disposition home or self-care (01) ==
PROVIDERS: PCP Internal Medicine; Visit Provider Surgery Vascular Surgery
DX: I73.9 Peripheral vascular disease, unspecified (principal); I89.0 Lymphedema, not elsewhere classified
CPT/HCPCS: 99204

== ENCOUNTER → 2022-12-17 13:30 | Outpatient (BNVA) | payer MEDICAID, SELFPAY | PROVIDERS: PCP Internal Medicine; Visit Provider Surgery Vascular Surgery | DX: I73.9 Peripheral vascular disease, unspecified (principal); I89.0 Lymphedema, not elsewhere classified | CPT/HCPCS: 99202 ==

== ENCOUNTER 2023-04-25 | Outpatient (REF) | payer MEDICAID, SELFPAY | END 2023-04-25 00:01 | disposition home or self-care (01) | LOC: CF | PROVIDERS: PCP Internal Medicine; Visit Provider Physician Assistant | DX: E66.01 Morbid (severe) obesity due to excess calories (principal); G47.30 Sleep apnea, unspecified; E03.9 Hypothyroidism, unspecified; R73.03 Prediabetes; I89.0 Lymphedema, not elsewhere classified; Z71.3 Dietary counseling and surveillance; Z68.44 Body mass index [BMI] 60.0-69.9, adult | CPT/HCPCS: 99212 ==

== ENCOUNTER 2023-04-25 10:51 | Outpatient (AMB) | payer MEDICAID, SELFPAY ==
--- NOTE | 2023-04-25 10:53 | MHC.OFFVISWM ---
Intake VS Expanded 04/25/23 10:59 BP 139/69 Blood Pressure Location Rt brachial Blood Pressure Position Sitting Pulse 110 H Pulse Source Pulse Oximeter Temp 98.5 F Temperature Source Tympanic Pulse Oximetry 94 Oxygen Delivery Method Room Air Height 5 ft 5 in Weight 418 lb 6.4 oz BMI 69.6 Body Fat % 52.6 Body Fat Mass 220.0 Fat Free Mass 198.2 Visceral Fat Rating 46.0 Body Water % 37.9 Body Water Mass 198.2 Muscle Mass/Score 188.4 Basal Metabolic Rate/Score 3,003 Intake Visit Reasons: (OV) Re-Est SWL Allergies No Known Allergies [No Known Allergies*] Allergy (Verified 12/17/22 14:04) Medication List - Last Reconciled 04/25/23 by Renea Jameson PA-C cyclobenzaprine 10 mg PO TID ferrous sulfate (FeroSul) 325 mg PO BID hydrochlorothiazide 25 mg PO DAILY levothyroxine 50 mcg PO DAILY metformin 500 mg PO BID HPI HPI Comments History of Present Illness Details 27 yo man is here to restart our SWL program. He had a HEMODIALYSIS PATIENT CARE SPECIALIST appt Apr 2020 at 355 lbs and then restarted in January 2023 at 405.8 lbs, he had not started our meal or exercise plans either time. He is now here at 418.4 lbs and wants to restart. Has been seeing a RD in [facility] recently. Wakes at 9am, bed at 10 pm. 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 sandwich ham and cheese OR 3 eggs Or tuna with crackers 1pm - Skips lunch 5 d/ week - if eats may have 2 packets of instant chicken soup. 5-6 pm - white rice/beans with chicken 2 pieces. never has vegetables. OJ or fruit punch or Coke Then snacks on sweet crackers, seeds, another sandwich - up until 10 pm. Also snacks on these foods throughout the day. Exercise - none, no membership or access to equipment. Has blood sugar glucometer but never checks it. [facility] Medical History Asthma Back pain Hypothyroidism Prediabetes Sleep apnea with use of continuous positive airway pressure (CPAP) Surgical History Morbid obesity Family History Mother Amputated right leg Father No problems noted. Brother No problems noted. Brother No problems noted. Sister No problems noted. 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 Blood work, BH and RD consultations and SWL classes have been ordered for him. Will order the rest of pre operative testing if he progresses with weight loss. 1. Adequate sleep of 8 hours per night discussed 2. Healthy meal plan - stop skipping meals, stop all sweetened drinks, stop snacking All meals/MR's need to take 20 minutes to complete 9:30 - coffe with milk and no sugar 9:30 am - protein shake with water or UAM 12 pm - protein shake with water or UAM 3pm pm- yogurt (does not like bars) 6 pm- dinner of 14 forks lean protein, 14 forks vegetable, 1 serving fruit 8pm - antoher shake Every day - 3 shakes, 1 yogurt and 1 meal Exercise - lives on 4 th floor and wants to use the stairs. 1. 15 minutes daily of climbing stairs 2. LS 1 mile videos daily Will have weekly office weigh ins until he is under 400 lbs and can use home scale. Pt will purchase body composition analyzer (recommended list given to patient) and weight himself weekly. Next appt with me in 3 weeks. Text me with any questions and weekly Tanita measurements. Patient is morbidly obese and is not considered stable at this time.?I spent a total of 60 minutes reviewing/updating records, examining the patient and counseling the patient on weight management as detailed above. (2) Hypothyroidism: Code(s): E03.9 - Hypothyroidism, unspecified (3) Sleep apnea with use of continuous positive airway pressure (CPAP): Code(s): G47.30 - Sleep apnea, unspecified (4) Prediabetes: Code(s): R73.03 - Prediabetes (5) Lymphedema: Code(s): I89.0 - Lymphedema, not elsewhere classified (6) Sleep apnea: Code(s): G47.30 - Sleep apnea, unspecified Plan see above Orders: Orders Insulin Today E03.9 - Hypothyroidism, unspecified, E66.01 - Morbid (severe) obesity due to excess calories, G47.30 - Sleep apnea, unspecified, I89.0 - Lymphedema, not elsewhere classified, R73.03 - Prediabetes IRON PROFILE Today E03.9 - Hypothyroidism, unspecified, E66.01 - Morbid (severe) obesity due to excess calories, G47.30 - Sleep apnea, unspecified, I89.0 - Lymphedema, not elsewhere classified, R73.03 - Prediabetes Comprehensive Met. Panel Today E03.9 - Hypothyroidism, unspecified, E66.01 - Morbid (severe) obesity due to excess calories, G47.30 - Sleep apnea, unspecified, I89.0 - Lymphedema, not elsewhere classified, R73.03 - Prediabetes Vitamin B12 and Folate Today E03.9 - Hypothyroidism, unspecified, E66.01 - Morbid (severe) obesity due to excess calories, G47.30 - Sleep apnea, unspecified, I89.0 - Lymphedema, not elsewhere classified, R73.03 - Prediabetes Vitamin B1 Today E03.9 - Hypothyroidism, unspecified, E66.01 - Morbid (severe) obesity due to excess calories, G47.30 - Sleep apnea, unspecified, I89.0 - Lymphedema, not elsewhere classified, R73.03 - Prediabetes TSH reflex Free T4 Today E03.9 - Hypothyroidism, unspecified, E66.01 - Morbid (severe) obesity due to excess calories, G47.30 - Sleep apnea, unspecified, I89.0 - Lymphedema, not elsewhere classified, R73.03 - Prediabetes Ferritin Today E03.9 - Hypothyroidism, unspecified, E66.01 - Morbid (severe) obesity due to excess calories, G47.30 - Sleep apnea, unspecified, I89.0 - Lymphedema, not elsewhere classified, R73.03 - Prediabetes Hemoglobin A1c Today E03.9 - Hypothyroidism, unspecified, E66.01 - Morbid (severe) obesity due to excess calories, G47.30 - Sleep apnea, unspecified, I89.0 - Lymphedema, not elsewhere classified, R73.03 - Prediabetes Complete Blood Count Auto Diff Today E03.9 - Hypothyroidism, unspecified, E66.01 - Morbid (severe) obesity due to excess calories, G47.30 - Sleep apnea, unspecified, I89.0 - Lymphedema, not elsewhere classified, R73.03 - Prediabetes Lipid Panel Today E03.9 - Hypothyroidism, unspecified, E66.01 - Morbid (severe) obesity due to excess calories, G47.30 - Sleep apnea, unspecified, I89.0 - Lymphedema, not elsewhere classified, R73.03 - Prediabetes Zinc Today E03.9 - Hypothyroidism, unspecified, E66.01 - Morbid (severe) obesity due to excess calories, G47.30 - Sleep apnea, unspecified, I89.0 - Lymphedema, not elsewhere classified, R73.03 - Prediabetes C Reactive Protein Today E03.9 - Hypothyroidism, unspecified, E66.01 - Morbid (severe) obesity due to excess calories, G47.30 - Sleep apnea, unspecified, I89.0 - Lymphedema, not elsewhere classified, R73.03 - Prediabetes Vitamin A Today E03.9 - Hypothyroidism, unspecified, E66.01 - Morbid (severe) obesity due to excess calories, G47.30 - Sleep apnea, unspecified, I89.0 - Lymphedema, not elsewhere classified, R73.03 - Prediabetes Vitamin D 25-OH Total Today E03.9 - Hypothyroidism, unspecified, E66.01 - Morbid (severe) obesity due to excess calories, G47.30 - Sleep apnea, unspecified, I89.0 - Lymphedema, not elsewhere classified, R73.03 - Prediabetes Coding Level of Care Code Est Pt Level 5 (98618) Diagnoses Morbid obesity E66.01 Hypothyroidism E03.9 Sleep apnea with use of continuous positive airway pressure (CPAP) G47.30 Prediabetes R73.03 Lymphedema I89.0 Sleep apnea G47.30
[2023-04-25 10:59] VITALS: BP 139/69; PULSE 110; TEMP 36.9; O2SAT 94; BMI 69.6
== END 2023-04-25 11:45 | disposition home or self-care (01) ==
PROVIDERS: PCP Internal Medicine; Visit Provider Physician Assistant
DX: E66.01 Morbid (severe) obesity due to excess calories (principal); Z68.44 Body mass index [BMI] 60.0-69.9, adult; E03.9 Hypothyroidism, unspecified; G47.30 Sleep apnea, unspecified; R73.03 Prediabetes; I89.0 Lymphedema, not elsewhere classified
CPT/HCPCS: 99215

== ENCOUNTER 2023-05-07 | Outpatient (REF) | payer OTHER, SELFPAY | END 2023-05-07 00:01 | disposition home or self-care (01) | LOC: CF | PROVIDERS: Visit Provider Dietitian, Registered | DX: G47.30 Sleep apnea, unspecified (principal); Z99.89 Dependence on other enabling machines and devices | CPT/HCPCS: 97802 ==

== ENCOUNTER 2023-05-07 14:49 | Outpatient (AMB) | payer MEDICAID, SELFPAY ==
--- NOTE | 2023-05-07 14:33 | MHC.AMNUTRGE ---
Intake Intake Visit Reasons: TV Initial Nutrition SWL Voltage Inspector Required: Yes Voltage Inspector Name: chantel Fulton Information Interpreted: non-clinical & clinical Allergies No Known Allergies [No Known Allergies*] Allergy (Verified 12/17/22 14:04) HPI Nutrition Presentation Unstable SDH Reports transportation (uses uber everywhere ) and housing Diet Assmnt Details I eat excessively - he recognizes he overeats in response to emotion. when I eat, I am able to forget everything - lost his mother, has been living with different family members , he feels homeless . He has a therapist and they discuss this. He states this is getting better with the program. today we mainly discussed relationship with food and triggers SWL online classes: none Dietary counseling reduction Who buys your food self Who prepares/cooks your food self Meal frequency regular: lunch (canned meals or boxed meals ), dinner and snacks and irregular: breakfast Lifestyle Food frequency Restaurants/fast foods: daily and Desserts/sweets: daily Diagnosis Nutrition problem #1 overweight/obesity As related to (etiology) #1 excess energy intake and physical inactivity As evidenced by (sign/symptom) #1 high BMI Monitoring/Goals Nutrition problem monitoring total energy intake, level of knowledge/skill, total PRO intake, glucose, fasting, total CHO intake and weight Learning/Education Readiness to learn fair Most Recent Diabetes Results: Creatinine 0.85 mg/dL (0.5-1.4) 07/19/22 Blood Urea Nitrogen 12 mg/dL (9-16) 07/19/22 Sodium 139 mmol/L (135-145) 07/19/22 Potassium 4.3 mmol/L (3.3-5.1) 07/19/22 Chloride 101 mmol/L (96-108) 07/19/22 Carbon Dioxide 30 mmol/L (22-29) H 07/19/22 Calcium 9.6 mg/dL (8.4-10.2) 07/19/22 AST 18 U/L (5-37) 07/19/22 ALT 39 U/L (0-40) 07/19/22 Total Protein 7.0 g/dL (6.5-8.0) 07/19/22 Albumin 4.0 g/dL (3.5-5.0) 07/19/22 [facility] Medical History Asthma Back pain Hypothyroidism Prediabetes Sleep apnea with use of continuous positive airway pressure (CPAP) Surgical History Morbid obesity Family History Mother Amputated right leg Father No problems noted. Brother No problems noted. Brother No problems noted. Sister No problems noted. 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 Assessment & Plan Assessment & Plan (1) Morbid obesity: Code(s): E66.01 - Morbid (severe) obesity due to excess calories Plan Will be seen again once he completes online classes Patient Instructions: Pt has yet to demonstrate consistency with change, but at a BMI of nearly 70 would greatly benefit from bariatric surgery.?may need more support and follow up Telehealth Telehealth Location of provider rendering services: practice address Location of patient: address on file Patient Identification confirmed using: Name, : Yes Telehealth method: voice only Patient verbally consented to treatment: Yes Patient verbally consented to billing insurance company: Yes Patient informed of any privacy concerns related to visit: Yes Minutes spent on Phone/Video with Pt.: 40 Coding Level of Care Code Nutr Indiv Intake (10237) Diagnoses Morbid obesity E66.01 Time Spent (min) 40
== END 2023-05-07 14:58 | disposition home or self-care (01) ==
LOC: HO.HBS 14:49
PROVIDERS: PCP Internal Medicine; Visit Provider Dietitian, Registered
DX: E66.01 Morbid (severe) obesity due to excess calories (principal)

== ENCOUNTER 2023-05-15 13:00 | Outpatient (AMB) | payer OTHER, SELFPAY ==
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
== END 2023-06-04 11:56 | disposition home or self-care (01) ==
LOC: HO.HBST 13:12
PROVIDERS: PCP Internal Medicine; Visit Provider Counselor Mental Health
DX: F33.1 Major depressive disorder, recurrent, moderate (principal); F43.10 Post-traumatic stress disorder, unspecified
CPT/HCPCS: 90837

== ENCOUNTER → 2023-05-15 13:00 | Outpatient (BNVA) | payer MEDICAID, SELFPAY | PROVIDERS: PCP Internal Medicine; Visit Provider Counselor Mental Health ==

== ENCOUNTER 2023-06-11 11:35 | Outpatient (AMB) | payer OTHER, SELFPAY ==
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
== END 2023-06-11 13:26 | disposition home or self-care (01) ==
LOC: HO.HBST 11:35
PROVIDERS: PCP Internal Medicine; Visit Provider Counselor Mental Health
DX: F33.1 Major depressive disorder, recurrent, moderate (principal); F43.10 Post-traumatic stress disorder, unspecified
CPT/HCPCS: 90834

== ENCOUNTER → 2023-06-11 11:35 | Outpatient (BNVA) | payer MEDICAID, SELFPAY | PROVIDERS: PCP Internal Medicine; Visit Provider Counselor Mental Health | DX: E66.01 Morbid (severe) obesity due to excess calories (principal); Z68.45 Body mass index [BMI] 70 or greater, adult | CPT/HCPCS: 99212 ==

== ENCOUNTER 2023-06-11 13:42 | Outpatient (AMB) | payer MEDICAID, SELFPAY ==
--- NOTE | 2023-06-11 15:16 | MHC.NURWM ---
Intake Intake Visit Reasons: (OV) F/U [facility] Allergies No Known Allergies [No Known Allergies*] Allergy (Verified 12/17/22 14:04) Coding
--- NOTE | 2023-06-11 15:23 | MHC.OFFVISWM ---
Intake VS Expanded 06/11/23 15:24 BP 135/63 Blood Pressure Location Rt brachial Blood Pressure Position Sitting Pulse 114 H Pulse Source Pulse Oximeter Temp 97.1 F Temperature Source Tympanic Pulse Oximetry 97 Oxygen Delivery Method Room Air Height 5 ft 5 in Weight 421 lb 12.8 oz BMI 70.2 Body Fat % 54.2 Body Fat Mass 228.6 Fat Free Mass 193.2 Visceral Fat Rating 49.0 Body Water % 36.6 Body Water Mass 154.6 Muscle Mass/Score 183.6 Basal Metabolic Rate/Score 2,942 Intake Visit Reasons: (OV) F/U SWL Allergies No Known Allergies [No Known Allergies*] Allergy (Verified 12/17/22 14:04) Medication List - Last Reconciled 06/11/23 by Renea Jameson PA-C cyclobenzaprine 10 mg PO TID ferrous sulfate (FeroSul) 325 mg PO BID hydrochlorothiazide 25 mg PO DAILY levothyroxine 50 mcg PO DAILY metformin 500 mg PO BID HPI HPI Comments History of Present Illness Details [facility] follow up, 3rd attempt at [facility] program. Re=establish appt in Apr at 418.4 lbs. Has gained 3 lbs wakes at 8am, says he is hungry all day. drinks water. Doing plan for 10 days only. Doesn't like bars. coffee - 1 tsp sugar 9am- Ensure AGNES 11 am - yogurt 3pm - Ensure Agnes 5:30 - 12 forks protein and vegetable, water or Crystal Light. sometimes a fruit 10pm - ENsure Agnes - may have another fruit Exercise - lives with his grandmother. Daily walks around for 15 minutes. Never tried LS videos. Hpylori neg 01/2022 CXR - nl 07/2021 ECHO -[id number] Does not check his BS. Has not gotten labs done yet - will do at [facility], closer to his home. [facility] Medical History Asthma Back pain Hypothyroidism Prediabetes Sleep apnea with use of continuous positive airway pressure (CPAP) Surgical History Morbid obesity Family History Mother Amputated right leg Father No problems noted. Brother No problems noted. Brother No problems noted. Sister No problems noted. 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 Getting about 150 grams protien per day. He has not started exercise yet, and is having monthly appts with Soniya. He was asking about AOM's today. I recommended that he stop the extra foods - have waater - and try for another week the hunger should go away. Also he needs to start regualr exercise. Walk up stairs for 15 mintues bid and LS 1 mile videos - all daily. He has not texted me - we discussed this again and he will text me his weights, meal plan and exercise weekly. Will discuss AOM's with Dr Reyes for him prn. Next appt with me in 3 weeks, pre op work up when starts to progress. Patient is morbidly obese and is not considered stable at this time. I spent30 minutes in total with patient reviewing/updating records, examining the patient and counseling the patient on weight management as detailed above. Coding Level of Care Code Est Pt Level 4 (99471) Diagnoses Morbid obesity E66.01
[2023-06-11 15:24] VITALS: BP 135/63; PULSE 114; TEMP 36.2; O2SAT 97; BMI 70.2
== END 2023-06-11 15:57 | disposition home or self-care (01) ==
PROVIDERS: PCP Internal Medicine; Visit Provider Physician Assistant
DX: E66.01 Morbid (severe) obesity due to excess calories (principal)
CPT/HCPCS: 99214

== ENCOUNTER 2023-06-17 14:16 | Outpatient (AMB) | payer OTHER, SELFPAY ==
--- NOTE | 2023-06-17 14:08 | A.OFFVIS_ITS ---
Intake Intake Visit Reasons: (TV) F/U [facility] Supervisor [employer] Required: Yes Supervisor [employer] Maintenance Services Name: chantel [id number] Information Interpreted: non-clinical & clinical Allergies No Known Allergies [No Known Allergies*] Allergy (Verified 12/17/22 14:04) HPI Nutrition Presentation Details follow up, 3rd att empt at [facility] kathya tahmina. Re=establish ap pt in Dec at 418.4 lbs. Has gained 3 lbs Unstable SDH Reports transportation (uses uber everywhere ) and housing Diet Assmnt Details Can you give me a diet to follow . he feels the shakes are too boring. He has questions about specific foods he can choose.Tried to explain the rationale for the programs nutrition plans per surgeon Previous appt I eat excessively - he recognizes he overeats in response to emotion. when I eat, I am able to forget everything - lost his mother, has been living with different family members , he feels homeless . He has a therapist and they discuss this. He states this is getting better with the program. today we mainly discussed relationship with food and triggers [facility] online classes: none , was reminded previously Dietary counseling reduction Diagnosis Nutrition problem #1 overweight/obesity As related to (etiology) #1 excess energy intake and physical inactivity As evidenced by (sign/symptom) #1 high BMI Monitoring/Goals Nutrition problem monitoring total energy intake, level of knowledge/skill, total PRO intake, glucose, fasting, total CHO intake and weight Learning/Education Readiness to learn fair Most Recent Diabetes Results: No Data to Display [facility] Medical History Asthma Back pain Hypothyroidism Prediabetes Sleep apnea with use of continuous positive airway pressure (CPAP) Surgical History Morbid obesity Family History Mother Amputated right leg Father No problems noted. Brother No problems noted. Brother No problems noted. Sister No problems noted. 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 provided ideas for meals . will see Renea as previously scheduled. Telehealth Telehealth Location of provider rendering services: other (Home office. state [facility]) Location of patient: address on file Patient Identification confirmed using: Name, : Yes Telehealth method: voice only Patient verbally consented to treatment: Yes Patient verbally consented to billing insurance company: Yes Patient informed of any privacy concerns related to visit: Yes Minutes spent on Phone/Video with Pt.: 30 Coding Level of Care Code Nutr Indiv Subseq ([id number]) Diagnoses Morbid obesity E66.01 Time Spent (min) 30
== END 2023-06-17 14:24 | disposition home or self-care (01) ==
LOC: HO.HBS 14:16
PROVIDERS: PCP Internal Medicine; Visit Provider Dietitian, Registered
DX: E66.01 Morbid (severe) obesity due to excess calories (principal)

== ENCOUNTER → 2023-06-17 14:16 | Outpatient (BNVA) | payer OTHER, SELFPAY | PROVIDERS: PCP Internal Medicine; Visit Provider Dietitian, Registered | DX: E66.01 Morbid (severe) obesity due to excess calories (principal) | CPT/HCPCS: 97803 ==

== ENCOUNTER 2023-06-20 11:03 | Outpatient (REF) | payer MEDICAID, SELFPAY ==
[2023-06-20 13:21] LABS: MANUAL DIFF FLAG NO
[2023-06-20 13:34] LABS: Basophils Absolute Auto 0.1 X10*3/uL (0.0-0.2); Basophils Percent Auto 0.8 % (0-2); Eosinophils Absolute Auto 0.5 X10*3/uL (0.0-0.4); Eosinophils Percent Auto 7.6 % (0-4); Hematocrit 45.1 % (42.0-52.0); Hemoglobin 13.9 g/dl (14.0-18.0); Imm Gran Abs Auto 0.04 X10*3/uL (0.00-0.03); Imm Gran Pct Auto 0.6 % (0.0-0.4); Lymphocytes Absolute Auto 2.1 X10*3/uL (1.2-4.9); Lymphocytes Percent Auto 31.6 % (20-40); Mean Corpuscular HGB Conc 30.8 g/dl (31.0-36.0); Mean Corpuscular Hemoglobin 25.7 pg (27.0-33.0); Mean Corpuscular Volume 83.5 fL (80.0-98.0); Mean Platelet Volume 10.7 fL (9.4-12.4); Monocytes Absolute Auto 0.6 X10*3/uL (0.1-1.2); Monocytes Percent Auto 9.4 % (2-11); Neutrophils Absolute Auto 3.3 x10*3/uL (2.0-8.3); Platelet Count 424 X10*3/uL (160-400); Red Cell Distribution Width 14.4 % (11.0-16.0); White Blood Count 6.5 X10*3/uL (4.8-10.8)
[2023-06-20 13:40] LABS: Estimated Average Glucose 128 mg/dL; Hemoglobin A1C 150.3104 umol/L; Hemoglobin A1c % 6.1 % (<6.0)
[2023-06-20 13:56] LABS: HIV AB/AG Nonreactive (Nonreactive); HIV Num 1 0.05 S/CO (0.00-0.99); ~HepC Num1 0.09 S/CO (0.00-0.79); ~Hepatitis C Antibody Nonreactive (Nonreactive)
[2023-06-20 14:07] LABS: Folate 11.8 ng/mL (> or = 4.0); Vitamin B12 449 pg/mL (200-900)
[2023-06-20 14:14] LABS: Creatinine Urine 134.62 mg/dL; Microalbum/Creatinine Ratio Ur 27.4 ug/mg cr (<30)
[2023-06-20 14:15] LABS: Alanine Aminotransferase 50 U/L (0-40); Albumin Level 4.1 g/dL (3.5-5.0); Alkaline Phosphatase 80 U/L (39-117); Anion Gap 15 (12-20); Aspartate Amino Transferase 25 U/L (5-37); Bilirubin Direct 0.2 mg/dL (0.0-0.5); Bilirubin Total 0.4 mg/dL (0.0-1.0); Blood Urea Nitrogen 14 mg/dL (9-16); C Reactive Protein 3.01 mg/dL (< or = 0.50); Calcium 9.8 mg/dL (8.4-10.2); Carbon Dioxide 30 mmol/L (22-29); Chloride 100 mmol/L (96-108); Cholesterol 175 mg/dL (<200); Estimated Glomerular Filt Rate > 60; Ferritin 135 ng/mL (20-250); Glucose Random 104 mg/dL (60-115); HDL Cholesterol 48 mg/dL (>40); Iron 113 mcg/dL (45-160); LDL Cholesterol Calculated 111 mg/dL (<100); Percent Iron Saturation 46 % (15-50); Sodium 141 mmol/L (135-145); TSH reflex Free T4 4.26 uIU/mL (0.32-4.0); Total Iron Binding Capacity 247 mcg/dL (228-428); Total Protein 7.8 g/dL (6.5-8.0); Triglycerides 82 mg/dL (<150); Unsaturated Iron Binding 134 ug/dL; Vitamin D 25-OH Total 17.3 ng/mL (>30)
[2023-06-20 15:01] LABS: Free T4 (Free Thyroxine) 1.13 ng/dL (0.71-1.85)
[2023-06-24 20:09] LABS: Vitamin A 32 mcg/dL (38-98)
== END 2023-06-20 11:04 | disposition home or self-care (01) ==
LOC: HO.HHCL 11:03
PROVIDERS: Physician Assistant; Visit Provider Internal Medicine
DX: I89.0 Lymphedema, not elsewhere classified (principal); G47.30 Sleep apnea, unspecified; E03.9 Hypothyroidism, unspecified; E66.01 Morbid (severe) obesity due to excess calories; E11.9 Type 2 diabetes mellitus without complications
CPT/HCPCS: 36415; 80053; 80061; 82043; 82248; 82306; 82570; 82607; 82728; 82746; 83036; 83540; 84439; 84443; 84590; 85025; 86140; 86803; 87389

== ENCOUNTER 2023-07-10 14:30 | Outpatient (AMB) | payer MEDICAID, SELFPAY ==
--- NOTE | 2023-07-10 14:31 | A.OFFVIS_ITS ---
Intake Intake Visit Reasons: VIDEO F/U SWL Allergies No Known Allergies [No Known Allergies*] Allergy (Verified 12/17/22 14:04) HPI HPI Comments History of Present Illness Details SWL follow up, 3rd attempt at our program, this time restarted Apr at 418.1 lbs. At his last appt with me on 06/11 he had only started plan 10 days prior. Called patient for appt today - he states he did not remember and needs to reschedule. I asked him his weight - he does not know still has not bought an electronic scale. [facility] Medical History (Updated 07/10/23 @ 14:34 by Renea Jameson PA-C) Sleep apnea Prediabetes Back pain Sleep apnea with use of continuous positive airway pressure (CPAP) Asthma Hypothyroidism Surgical History Morbid obesity Family History Mother Amputated right leg Father No problems noted. Brother No problems noted. Brother No problems noted. Sister No problems noted. 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 I told him that he must send me his weight with an electronic scale before he is given another appt in our office. Soy [place] Karina and Qi are all aware of this. Patient is still morbidly obese and is not considered stable at this time. I spent 5 minutes in total speaking with the patient via video conference counseling , reviewing records and charting in patients chart. . (2) Sleep apnea with use of continuous positive airway pressure (CPAP): Code(s): G47.30 - Sleep apnea, unspecified (3) Hypothyroidism: Code(s): E03.9 - Hypothyroidism, unspecified (4) Asthma: Code(s): J45.909 - Unspecified asthma, uncomplicated (5) Diabetes mellitus: Code(s): E11.9 - Type 2 diabetes mellitus without complications (6) PAD (peripheral artery disease): Code(s): I73.9 - Peripheral vascular disease, unspecified Plan see above Telehealth Telehealth Location of provider rendering services: practice address Location of patient: address on file Patient Identification confirmed using: Name, : Yes Telehealth method: video Patient verbally consented to treatment: Yes Patient verbally consented to billing insurance company: Yes Patient informed of any privacy concerns related to visit: Yes Coding Level of Care Code Tele Est Pt Level 2 (65095) Diagnoses Morbid obesity E66.01 Sleep apnea with use of continuous positive airway pressure (CPAP) G47.30 Hypothyroidism E03.9 Asthma J45.909 Diabetes mellitus E11.9 PAD (peripheral artery disease) I73.9
== END 2023-07-10 15:00 | disposition home or self-care (01) ==
LOC: HO.HBS 14:42
PROVIDERS: PCP Internal Medicine; Visit Provider Physician Assistant
DX: E66.01 Morbid (severe) obesity due to excess calories (principal); Z68.45 Body mass index [BMI] 70 or greater, adult; E03.9 Hypothyroidism, unspecified; J45.909 Unspecified asthma, uncomplicated; E11.9 Type 2 diabetes mellitus without complications; I73.9 Peripheral vascular disease, unspecified
CPT/HCPCS: 99211

== ENCOUNTER → 2023-07-10 14:30 | Outpatient (BNVA) | payer MEDICAID, SELFPAY | PROVIDERS: PCP Internal Medicine; Visit Provider Physician Assistant ==

== ENCOUNTER 2023-12-22 10:38 | Outpatient (REF) | payer MEDICAID, SELFPAY ==
[2023-12-22 11:37] LABS: MANUAL DIFF FLAG NO
[2023-12-22 11:46] LABS: Appearance Urine Clear; Color Urine Yellow; Glucose Urine UA >=1000 mg/dL (Negative); Leukocyte Esterase Urine Negative (Negative); Nitrite Urine Negative (Negative); PH 6.5 (5.0-9.0); Specific Gravity - Urine 1.025 (1.005-1.025); UMIC TRIGGER UA YES; Urine Blood Negative (Negative); Urine Ketones Negative (Negative); Urine Protein Negative (Neg-Trace)
[2023-12-22 11:51] LABS: Bacteria Urine None Seen (None Seen); Hyaline Casts Urine 0-2 /LPF (0-2); RBC Urine 0-2 /HPF (0-2); WBC Urine 0-5 /HPF (0-5)
[2023-12-22 11:51] LABS: Basophils Absolute Auto 0.1 X10*3/uL (0.0-0.2); Basophils Percent Auto 0.9 % (0-2); Eosinophils Absolute Auto 0.4 X10*3/uL (0.0-0.4); Eosinophils Percent Auto 6.2 % (0-4); Hematocrit 44.5 % (42.0-52.0); Hemoglobin 13.6 g/dl (14.0-18.0); Imm Gran Abs Auto 0.04 X10*3/uL (0.00-0.03); Imm Gran Pct Auto 0.6 % (0.0-0.4); Lymphocytes Absolute Auto 2.1 X10*3/uL (1.2-4.9); Lymphocytes Percent Auto 30.1 % (20-40); Mean Corpuscular HGB Conc 30.6 g/dl (31.0-36.0); Mean Corpuscular Hemoglobin 25.9 pg (27.0-33.0); Mean Corpuscular Volume 84.6 fL (80.0-98.0); Mean Platelet Volume 10.8 fL (9.4-12.4); Monocytes Absolute Auto 0.5 X10*3/uL (0.1-1.2); Monocytes Percent Auto 7.3 % (2-11); Neutrophils Absolute Auto 3.8 x10*3/uL (2.0-8.3); Neutrophils Percent Auto 54.9 % (45-73); Platelet Count 398 X10*3/uL (160-400); Red Blood Count 5.26 X10*6/uL (4.60-5.80); Red Cell Distribution Width 14.6 % (11.0-16.0)
[2023-12-22 12:10] LABS: Anion Gap 15 (12-20); Blood Urea Nitrogen 13 mg/dL (9-16); Calcium 10.1 mg/dL (8.4-10.2); Carbon Dioxide 29 mmol/L (22-29); Chloride 100 mmol/L (96-108); Estimated Glomerular Filt Rate > 60; Glucose Random 96 mg/dL (60-115); Potassium 3.8 mmol/L (3.3-5.1); Sodium 140 mmol/L (135-145)
[2023-12-22 12:11] LABS: Cholesterol 181 mg/dL (<200); HDL Cholesterol 50 mg/dL (>40); LDL Cholesterol Calculated 118 mg/dL (<100); Triglycerides 66 mg/dL (<150)
[2023-12-22 12:27] LABS: TSH reflex Free T4 3.62 uIU/mL (0.32-4.0)
[2023-12-22 12:28] LABS: Insulin 37 uU/mL (2-29)
[2023-12-25 02:23] LABS: Zinc 70 mcg/dL (60-130)
[2023-12-29 06:24] LABS: Vitamin B1 12 nmol/L (8-30)
== END 2023-12-22 10:39 | disposition home or self-care (01) ==
LOC: HO.HHCL 10:38
PROVIDERS: Internal Medicine; Physician Assistant; Visit Provider Family Medicine
DX: I89.0 Lymphedema, not elsewhere classified (principal); R73.03 Prediabetes; G47.30 Sleep apnea, unspecified; E03.9 Hypothyroidism, unspecified; E66.01 Morbid (severe) obesity due to excess calories; R60.0 Localized edema
CPT/HCPCS: 36415; 80048; 80061; 81001; 83525; 84425; 84443; 84630; 85025

== ENCOUNTER 2024-01-05 07:51 | Emergency (ER) | payer MEDICAID, SELFPAY ==
--- NOTE | ~2024-01-05 | XR_ITS ---
EXAMINATION: XR SHOULDER, LEFT CLINICAL INFORMATION: Pain COMPARISON: None available. TECHNIQUE: Three views of the left shoulder. FINDINGS: There may be slightly inferior positioning of the humeral head relative to the glenoid fossa. No acute fracture is seen. There are multiple calcifications adjacent to the superior aspect of the humeral head, suspicious for calcific rotator cuff tendinopathy. Acromioclavicular joint is intact. XR/XR shoulder LT min 2V IMPRESSION: 1. Calcifications adjacent to the humeral head, suspicious for calcific rotator cuff tendinopathy. 2. Possible slightly inferior positioning of the humeral head relative to the glenoid fossa, which could reflect joint effusion. Electronically signed by: Stas De Luna MD 01/05/2024 08:43 AM EDT
[2024-01-05 07:54] VITALS: BP 125/78; PULSE 106; RESP 18; TEMP 36.8; O2SAT 95; BMI 56.7
--- NOTE | 2024-01-05 08:26 | ED_ITS ---
HPI - Extremity Problem General Chief complaint: Extremity Problem Stated complaint: L shoulder pain Time Seen by Provider: 01/05/24 08:12 Source: patient and american sign language interpreter Mode of arrival: ambulatory Limitations: no limitations History of Present Illness ED Provider: DR. Guerra HPI Narrative: this is a 28-year-old male came in for evaluation of left shoulder pain times 2-3 weeks. Patient live with his grandmother sleep on the floor, no injury, no trauma. Patient can not raise his arm or move his shoulder. No neck pain, pain is localized to the shoulder and worsening with movement. Related Data Home Medications ?Medication ?Instructions ?Recorded ?Confirmed cyclobenzaprine 10 mg tablet 10 mg PO TID 07/09/21 06/11/23 ferrous sulfate 325 mg (65 mg 325 mg PO BID 07/09/21 06/11/23 iron) tablet (FeroSul) hydrochlorothiazide 25 mg tablet 25 mg PO DAILY 07/09/21 06/11/23 metformin 500 mg tablet 500 mg PO BID 07/09/21 06/11/23 Previous Rx's ?Medication ?Instructions ?Recorded cholecalciferol (vitamin D3) 50 50 mcg PO DAILY #90 caps 06/24/23 mcg (2,000 unit) capsule levothyroxine 75 mcg capsule 75 mcg PO DAILY #30 caps 06/24/23 vitamin A palmitate 3,000 mcg 3,000 mcg PO DAILY #21 caps 06/25/23 (10,000 unit) capsule ibuprofen 600 mg tablet 600 mg PO Q8H PRN pain #20 tabs 01/05/24 Allergies Allergy/AdvReac Type Severity Reaction Status Date / Time No Known Allergies Allergy Verified 01/05/24 07:54 [No Known Allergies*] Review of Systems Review of Systems: All other systems are reviewed and are negative Constitutional: Reports as per HPI and Reports no additional constitutional complaints Eyes: Reports as per HPI and Reports no additional eye complaints Reports system reviewed and no additional complaints, except as documented Cardiovascular: Reports as per HPI and Reports no additional cardiovascular complaints Respiratory: Reports as per HPI and Reports no additional respiratory complaints Gastrointestinal: Reports as per HPI and Reports no additional gastrointestinal complaints Genitourinary: Reports no additional female genitourinary complaints Musculoskeletal: Reports no additional musculoskeletal complaints Skin/Breast: Reports system reviewed and no additional complaints, except as docu Psychiatric: Reports no additional psychiatric complaints Endocrine: Reports no additional endocrine complaints Hematologic/Lymphatic: Reports no additional hematologic/lymphatic complaints Allergic/Immunologic: Reports no additional allergic/immunologic complaints Reports system reviewed and no additional complaints, except as documented and Reports Abnormal speech present [facility] Past Medical History Medical History Sleep apnea Prediabetes Back pain Sleep apnea with use of continuous positive airway pressure (CPAP) Asthma Hypothyroidism Surgical History Morbid obesity Family History Family History Mother Amputated right leg Father No problems noted. Brother No problems noted. Brother No problems noted. Sister No problems noted. 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 Blood pressure elevated. Heart rate normal. Respiratory rate normal. Temperature normal. Oxygen saturation normal. Appearance: Alert. Oriented X3. No acute distress. Head: Normal external exam. Normocephalic. Atraumatic. No Davis signs noted. No raccoon eyes noted Eyes: PERRLA. EOMI. Conjunctiva and sclera normal. Eyelids normal. ENT: TM's Normal. Pharynx normal. Uvula midline. Moist mucous membranes. No trismus noted. No drooling noted. No muffled voice noted. Neck: Normal inspection. Neck supple. FROM. No adenopathy. Thyroid Normal. No meningeal signs. No neck mass noted. CVS: Normal heart rate and rhythm. Heart sound normal. No murmurs noted. Pulses normal throughout. Respiratory: No respiratory distress. Painless inspiration. Breath sounds normal. No wheezes/rales/rhonchi noted. Chest nontender. No accessory muscle usage noted or decreased air movement noted. Abdomen: Soft and nontender. Bowel sounds normal in all 4 quadrants. No distention noted. No organomegaly noted. No visible injury noted. Back: No CVA tenderness. Full range of motion noted. Skin: Skin warm and dry. Normal skin color. Normal skin turgor. No rashes/lesions/lacerations noted. Extremities: Left shoulder: Held in adduction position with tender abduction, limited range of motion due to pain, neurovascularly intact, no deformity, no anterior fullness. Neuro: Oriented X 3. Cranial nerve exam: II-XII are grossly intact No motor deficit. No sensory deficit. Reflexes normal. Course Reevaluation(s) Reevaluation #1: nontraumatic Rotator cuff tendinitis Suggested by left shoulder x-ray, start an NSAIDs, gentle light exercising to avoid shoulder freeze, heating pad, and follow-up with orthopedic. Time: 08:29 Medications Administered Discontinued Medications Generic Name Dose Route Start Last Admin Trade Name Freq PRN Reason Stop Dose Admin Ibuprofen 800 mg 01/05/24 08:25 01/05/24 08:41 Ibuprofen 800 Mg Tablet PO 01/05/24 08:26 800 mg ONCE ONE Administration Medical Decision Making Differential Diagnosis Differential Diagnoses: The differential diagnosis associated with the presentation includes ( Rotator cuff tendinitis, dislocated shoulder, fracture, cervical radiculopathy.) Admission/Observation Consideration of admission/observation: Escalation of care including admission/observation considered Independent Interpretation I performed an independent interpretation of an: Plain X-Ray ( Left shoulder x- ray: . Calcifications adjacent to the humeral head, suspicious for calcific rotator cuff tendinopathy. 2. Possible slightly inferior positioning of the humeral head relative to the glenoid fossa, which could reflect joint effusion. ) Radiology Impression Discussion of test interpretation with radiology: I have reviewed the radiologist's reading. Discharge Plan Discharge Clinical Impression: Tendinitis of left rotator cuff Patient Disposition: Home, Self-Care Instructions: Rotator Cuff Tendinitis (ED) Prescriptions: New ibuprofen 600 mg tablet 600 mg PO Q8H PRN (Reason: pain) Qty: 20 0RF No Action cholecalciferol (vitamin D3) 50 mcg (2,000 unit) capsule 50 mcg PO DAILY Qty: 90 2RF levothyroxine 75 mcg capsule 75 mcg PO DAILY Qty: 30 2RF vitamin A palmitate 3,000 mcg (10,000 unit) capsule 3,000 mcg PO DAILY Qty: 21 0RF cyclobenzaprine 10 mg tablet 10 mg PO TID ferrous sulfate [FeroSul] 325 mg (65 mg iron) tablet 325 mg PO BID hydrochlorothiazide 25 mg tablet 25 mg PO DAILY metformin 500 mg tablet 500 mg PO BID Referrals: Floresita Potter MD [Primary Care Provider] - López Fong MD [Physician] - Print Language: Iraqi
[2024-01-05] MEDS: Ibuprofen 800 MG TABLET PO (08:41)
[2024-01-05 09:42] VITALS: BP 125/78; PULSE 92; RESP 18; TEMP 36.8; O2SAT 95
== END 2024-01-05 09:43 | disposition home or self-care (01) ==
PROVIDERS: Emergency Provider Emergency Medicine; PCP Internal Medicine
DX: M75.102 Unspecified rotator cuff tear or rupture of left shoulder, not specified as traumatic (principal); M25.512 Pain in left shoulder; E03.9 Hypothyroidism, unspecified; Z79.899 Other long term (current) drug therapy
CPT/HCPCS: 73030; 99283

== ENCOUNTER 2024-01-29 13:47 | Outpatient (AMB) | payer MEDICAID, SELFPAY ==
--- NOTE | 2024-01-29 14:35 | MHC.OFFVIS ---
Intake Visit Reasons: [facility]Prob- ED f/u Tendinitis of left rotator cuff Intake Note: Evin is a 28 year old left hand dominant male who presents today for a new problem visit with complaints of Left Shoulder pain. Patient reports that he has had ongoing left shoulder pain for about one month now, denies any injury. He has painful and limited ROM, particularly with above the head and behind the back movements. Allergies No Known Allergies [No Known Allergies*] Allergy (Verified 01/05/24 07:54) HPI HPI [facility]Prob- ED f/u Tendinitis of left rotator cuff: Details: Evin is a 28 year old left hand dominant male who presents today for a new problem visit with complaints of Left Shoulder pain. Patient reports that he has had ongoing left shoulder pain for about one month now, denies any injury. He has painful and limited ROM, particularly with above the head and behind the back movements. [facility], [facility] Medical History Sleep apnea Prediabetes Back pain Sleep apnea with use of continuous positive airway pressure (CPAP) Asthma Hypothyroidism Surgical History Morbid obesity Family History Mother Amputated right leg Father No problems noted. Brother No problems noted. Brother No problems noted. Sister No problems noted. 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 Radiographs from 01/05/2024: Show 1. Calcifications adjacent to the humeral head, suspicious for calcific rotator cuff tendinopathy. 2. Possible slightly inferior positioning of the humeral head relative to the glenoid fossa, which could reflect joint effusion. Assessment & Plan Assessment & Plan (1) Calcific tendonitis of left shoulder: Code(s): M75.32 - Calcific tendinitis of left shoulder Category: Medical Plan: Calcific tendinitis of the left shoulder on x-ray but clinically he is asymptomatic and has been strength and motion. Follow up if pain worsens. (2) Diabetes mellitus: Code(s): E11.9 - Type 2 diabetes mellitus without complications Category: Medical Plan: Seemingly controlled on medication (3) Morbid obesity: Code(s): E66.01 - Morbid (severe) obesity due to excess calories Category: Surgical Plan: Morbid obesity. I recommend weight loss as he is only 28. I discussed this with him and made a referral to weight management. Orders: Referrals Medical Weight Management Referral E66.01 - Morbid (severe) obesity due to excess calories Coding Level of Care Code Est Pt Level 3 (96307) Complex EM visit Add On G2211 Diagnoses Calcific tendonitis of left shoulder M75.32 Diabetes mellitus E11.9 Morbid obesity E66.01
== END 2024-01-29 15:25 | disposition home or self-care (01) ==
PROVIDERS: PCP Internal Medicine; Referring Provider Internal Medicine; Visit Provider Orthopaedic Surgery
DX: M75.32 Calcific tendinitis of left shoulder (principal); E11.9 Type 2 diabetes mellitus without complications
CPT/HCPCS: 99213

== ENCOUNTER → 2024-01-29 13:47 | Outpatient (BNVA) | payer MEDICAID, SELFPAY | PROVIDERS: PCP Internal Medicine; Visit Provider Orthopaedic Surgery | DX: M75.32 Calcific tendinitis of left shoulder (principal) | CPT/HCPCS: 99212 ==

== ENCOUNTER 2024-07-30 10:40 | Outpatient (REF) | payer MEDICAID, SELFPAY ==
[2024-07-30 13:50] LABS: MANUAL DIFF FLAG NO
[2024-07-30 14:18] LABS: Creatinine Urine 188.84 mg/dL; Microalbum/Creatinine Ratio Ur 64.6 ug/mg cr (<30)
[2024-07-30 14:41] LABS: Basophils Percent Auto 0.7 % (0-2); Eosinophils Absolute Auto 0.4 X10*3/uL (0.0-0.4); Hematocrit 46.3 % (42.0-52.0); Hemoglobin 14.1 g/dl (14.0-18.0); Imm Gran Abs Auto 0.02 X10*3/uL (0.00-0.03); Imm Gran Pct Auto 0.3 % (0.0-0.4); Lymphocytes Absolute Auto 1.7 X10*3/uL (1.2-4.9); Lymphocytes Percent Auto 29.1 % (20-40); Mean Corpuscular HGB Conc 30.5 g/dl (31.0-36.0); Mean Corpuscular Hemoglobin 25.9 pg (27.0-33.0); Mean Corpuscular Volume 85.1 fL (80.0-98.0); Mean Platelet Volume 11.2 fL (9.4-12.4); Monocytes Absolute Auto 0.5 X10*3/uL (0.1-1.2); Monocytes Percent Auto 7.9 % (2-11); Neutrophils Absolute Auto 3.2 x10*3/uL (2.0-8.3); Platelet Count 389 X10*3/uL (160-400); Red Blood Count 5.44 X10*6/uL (4.60-5.80); Red Cell Distribution Width 14.1 % (11.0-16.0); White Blood Count 5.8 X10*3/uL (4.8-10.8)
[2024-07-30 15:09] LABS: Alanine Aminotransferase 27 U/L (0-40); Alkaline Phosphatase 77 U/L (39-117); Anion Gap 11 (12-20); Aspartate Amino Transferase 23 U/L (5-37); Bilirubin Total 0.4 mg/dL (0.0-1.0); Blood Urea Nitrogen 12 mg/dL (9-16); Calcium 9.6 mg/dL (8.4-10.2); Carbon Dioxide 31 mmol/L (22-29); Chloride 102 mmol/L (96-108); Cholesterol 169 mg/dL (<200); Estimated Glomerular Filt Rate > 60; Glucose Random 100 mg/dL (60-115); HDL Cholesterol 45 mg/dL (>40); LDL Cholesterol Calculated 109 mg/dL (<100); Potassium 4.8 mmol/L (3.3-5.1); Sodium 139 mmol/L (135-145); Total Protein 7.7 g/dL (6.5-8.0); Triglycerides 77 mg/dL (<150)
[2024-07-30 15:15] LABS: TSH reflex Free T4 5.15 uIU/mL (0.32-4.0); Vitamin D 25-OH Total 14.7 ng/mL (>30)
[2024-07-30 16:12] LABS: Free T4 (Free Thyroxine) 1.11 ng/dL (0.71-1.85)
[2024-07-31 03:46] LABS: HIV AB/AG Nonreactive (Nonreactive); HIV Num 1 0.06 S/CO (0.00-0.99); ~HepC Num1 0.12 S/CO (0.00-0.79); ~Hepatitis C Antibody Nonreactive (Nonreactive)
== END 2024-07-30 10:41 | disposition home or self-care (01) ==
LOC: HO.HHCL 10:40
PROVIDERS: Visit Provider Internal Medicine
DX: E66.813 Obesity, class 3 (principal); Z68.45 Body mass index [BMI] 70 or greater, adult; E66.01 Morbid (severe) obesity due to excess calories; E11.9 Type 2 diabetes mellitus without complications
CPT/HCPCS: 36415; 80053; 80061; 82043; 82306; 82570; 84439; 84443; 85025; 86803; 87389

== ENCOUNTER 2024-12-09 13:03 | Outpatient (REF) | payer MEDICAID, SELFPAY ==
--- OUTSIDE RECORDS SUMMARY | 2024-12-09 13:09 | XMS_ITS | Encounter Summary ---
Author Organization [employer] Address [address] [place] [address] Care Team Providers Care Graphics Manager Name Role Phone Floresita Potter MD Primary Care Provide r Reason for Visit * Reason Onset Date Comments Referral 03/23/2024 Encounter Details Date Type Department Care Team ([facility] Contact Info) Description 03/23/[address] [facility] [address] [place], [place] [phone] Floresita Potter MD [address] [place], [place] [phone] Referral Social History Tobacco Use Types Packs/Day Years Used Date Smoking Tobacco: Never Passive Smoke Exposure: Never Smokeless Tobacco: Never Alcohol Use Standard Drinks/Week Comments Never 0 (1 standard drink = 0.6 oz pur e alcohol) Depression Answer Date Recorded Patient Health Questionnaire-9 Score 14 04/03/2023 Patient Health Questionnaire-9 Score 14 04/03/2023 Last PHQ-9: Questionnaire Data Not on file 1 06/03/2022 Housing Stability Answer Date Recorded What is your housing situation today? I do not have housing (Staying with others, in a hotel, in a senior living, living outside on the street, on a beach, in a car, or in a park 06/10/[address] you li ve. Do you have problems with any of the following? None of the above 06/10/2023 Food Insecurity Answer Date Recorded Within the past 12 months, y ou worried that your food would run out before you got money to buy more: Never True 02/18/2023 Within the past 12 months,th e food you bought just didn't last and you didn't have enough money to get more: Never True Transportation Answer Date Recorded In the past 12 months, has l ack of transportation kept you from medical appts, meetings, work or from getting things needed for daily living? Yes, it has kept me from medical appointments or getting medications. 02/12/2023 Utilities Answer Date Recorded In the past 12 months, has t he electric, gas, oil or water company threatened to shut off services in your home? No 02/18/2023 Depression Answer Date Recorded Patient Health Questionnaire-2 Score 3 04/03/2023 Sex and Gender Information Value Date Recorded Sex Assigned at Male 03/04/2022 10:17 AM EDT Legal Sex Male 10:17 AM EDT Gender Identity Male 03/04/2022 10:17 AM EDT Sexual Orientation Straight 03/04/2022 10 :17 AM EDT documented as of this encounter Miscellaneous Notes * Telephone Encounter - Tanisha Vuong - 03/23/2024 1:05 PM EST TC from pt requesting new referral for foot specialists with Dr.James Ginette Horne II , pt will like referral to be sent over and notify him when is sent over due to pt leaving on vacation soon. Callback number [phone] documented in this encounter Plan of Treatment Upcoming Encounters Date Type Department Care Team (Late st Contact Info) Description 12/09/2024 1:30 PM EDT Office Visit [facility] [address] [place] [address] Matthew, Delia, OD [address] [place] [address] 12/23/2024 1:00 PM EDT Office Visit [facility] [address] [place] [phone] Floresita Potter MD [address] [place] [address] 01/14/2025 2:00 PM EDT Office Visit [facility] [address] [place] [phone] Floresita Potter MD [address] [place] [address] documented as of this encounter Visit Diagnoses Not on filedocumented in this encounter Additional Health Concerns Assessment Noted Time PHQ-9 Depression Total Score: 14 023 10:06 AM EST documented as of this encounter Care Teams Graphics Manager Relationship Specialty Start Date End Date Floresita Potter MD [address] [place] [phone] PCP - General Family Medicine 04/09/18 documented as of this encounter
--- OUTSIDE RECORDS SUMMARY | 2024-12-09 13:09 | XMS_ITS | Clinical Summary ---
Author Organization [address] [place] [address] [place] [phone] Phone Care Team Providers Care Packing Line Worker Name Role Phone Floresita Potter MD Primary Care Provide r Medications miconazole (Lotrimin AF) 2 % powder Apply topically 2 (two) times a day for 28 days. 70 g 3 5 01/04/20 25 Active Encounters Date Type Department Care Team Description 12/06/2024 2:15 PM EDT Consult Orthopedic Surgery [facility] [address] [place] [phone] Manny Lucas, DPM Tinea pedis of both feet (Primary Dx); Type 2 diabetes mellitus without complication, without long-term current use of insulin ([facility] V24, [facility] V28); Diabetic mononeuropathy simplex ([facility] V24, [facility] V28) from Last 3 Months Social History Tobacco Use Types Packs/Day Years Used Date Smoking Tobacco: Never Assessed Sex and Gender Information Value Date Recorded Sex Assigned at Male 11/29/2024 9:59 AM EDT Legal Sex Male 10:31 AM EDT Gender Identity Male 11/29/2024 9:59 AM EDT Sexual Orientation Not on file Plan of Treatment Health Maintenance Due Date Last Done Comments Diabetes: Annual GFR (Glomerular Filtration Rate) 1994 Diabetes: Annual Foot Exam 2004 Diabetes: Annual Retina Eye Exam 2004 Pneumococcal Vaccine: Pediatrics (0 to 5 Years) and At-Risk Patients (6 to 49 Years) (1 of 2 - PCV) 2013 Hepatitis B Vaccines (2 of 2 - CpG 2-dose series) 12/06/2022 11/08/2022 COVID-19 Vaccine ( season) 2024 06/13/2023, 09/04/2020, 08/07/2020 Depression Screening 05/05/2024 DTaP,Tdap,and Td Vaccines (2 - Td or Tdap) 08/08/2024 08/08/2014 Social Influencers of Health Screening 08/17/2024 Diabetes: Annual Urine Albumin-Creatinine Ratio (uACR) 12/06/2024 Hypertension/CHF/CAD Annual BMP Blood Test 12/06/2024 Influenza Vaccine (#1) 2025 , 06/13/2023, 04/12/2020, Additional history exists Diabetes: Blood Sugar Control Test (HGBA1C) 03/23/2025 09/20/2024 Cholesterol Screening (Lipid Panel) 07/30/2029 07/30/2024 HIV Screening Completed 07/30/2024 Hepatitis C Screening Completed 07/30/2024 HIB Vaccines Aged Out No longer eligi ble based on patient's age to complete this topic HPV Vaccines Aged Out No longer eligi ble based on patient's age to complete this topic Hepatitis A Vaccines Aged Out No long er eligible based on patient's age to complete this topic IPV Vaccines Aged Out No longer eligi ble based on patient's age to complete this topic MMR Vaccines Aged Out No longer eligi ble based on patient's age to complete this topic Meningococcal ACWY Vaccine Aged Out N o longer eligible based on patient's age to complete this topic Meningococcal B Vaccine Aged Out No l onger eligible based on patient's age to complete this topic RSV Immunization Patients Under 20 months Aged Out No longer eligible based on patient's age to complete this topic Varicella Vaccines Aged Out No longer eligible based on patient's age to complete this topic Insurance MEDICAID - [place] Care Teams Packing Line Worker Relationship Specialty Start Date End Date Floresita Potter MD [address] [phone] PCP - General Internal Medicine 08/17/24
[2024-12-10 08:23] LABS: HBS Num1 79.45 mIU/mL (0-7.99); ~Hepatitis B Surface Antibody REACTIVE (Nonreactive)
== END 2024-12-09 13:04 | disposition home or self-care (01) ==
LOC: HO.HHCL 13:03
PROVIDERS: PCP Internal Medicine; Visit Provider Internal Medicine
DX: Z00.00 Encounter for general adult medical examination without abnormal findings (principal); Z11.1 Encounter for screening for respiratory tuberculosis; Z11.59 Encounter for screening for other viral diseases
CPT/HCPCS: 36415; 86481; 86706

== ENCOUNTER 2024-12-17 08:57 | Outpatient (REF) | payer MEDICAID, SELFPAY ==
--- OUTSIDE RECORDS SUMMARY | 2024-12-17 09:15 | XMS_ITS | Clinical Summary ---
Author Organization [address] [place] [address] [place] [phone] Phone Care Team Providers Care Industrial Aerial Installer Name Role Phone Floresita Potter MD Primary Care Provide r Medications miconazole (Lotrimin AF) 2 % powder Apply topically 2 (two) times a day for 28 days. 70 g 3 5 01/04/20 25 Active Encounters Date Type Department Care Team Description 12/06/2024 2:15 PM EDT Consult Orthopedic Surgery [facility] [address] [place] [phone] Manny Lucas, DPM Tinea pedis of both feet (Primary Dx); Type 2 diabetes mellitus without complication, without long-term current use of insulin ([facility] V24, [facility] V28); Diabetic mononeuropathy simplex ([facility] V24, [facility] V28) from Last 3 Months Social History [...] to complete this topic Insurance [place] Care Teams Industrial Aerial Installer Relationship Specialty Start Date End Date Floresita Potter MD [address] [phone] PCP - General Internal Medicine 08/17/24
--- OUTSIDE RECORDS SUMMARY | 2024-12-17 09:15 | XMS_ITS | Encounter Summary ---
Author Organization [employer] Address [address] [place] [address] Care Team Providers Care Hospitalist Physician Name Role Phone Floresita Potter MD Primary Care Provide r Reason for Visit * Reason Onset Date Comments Referral 03/23/2024 Encounter Details Date Type Department Care Team ([facility] Contact Info) Description 03/23/2024 Telephone [facility] [address] [place], [place] [phone] Floresita Potter MD [address] [place], [place] [phone] Referral Social History Tobacco Use Types Packs/Day [...] with others, in a hotel, in a group home, living outside on the street, on a [...] pt leaving on vacation soon. Callback number [phone] documented in this encounter Plan of Treatment Upcoming Encounters Date Type Department Care Team (Late st Contact Info) Description 12/23/2024 1:00 PM EDT Office Visit [facility] [address] [place] [phone] Floresita Potter MD [address] [place] [phone] 01/14/2025 2:00 PM EDT Office Visit [facility] [address] [place] [phone] Floresita Potter MD [address] [place] [phone] documented as of this encounter Visit Diagnoses Not on filedocumented in this encounter Additional Health Concerns Assessment Noted Time PHQ-9 Depression Total Score: 14 023 10:06 AM EST documented as of this encounter Care Teams Hospitalist Physician Relationship Specialty Start Date End Date Floresita Potter MD [address] [place] [address] PCP - General Family Medicine 04/09/18 documented as of this encounter
== END 2024-12-17 08:58 | disposition home or self-care (01) ==
LOC: HO.HHCL 08:57
PROVIDERS: PCP Internal Medicine; Visit Provider Internal Medicine
DX: Z13.89 Encounter for screening for other disorder (principal)

== ENCOUNTER 2024-12-20 14:23 | Outpatient (REF) | payer MEDICAID, SELFPAY ==
--- NOTE | ~2024-12-20 | XR_ITS ---
EXAMINATION: XR SHOULDER, RIGHT CLINICAL INFORMATION: PAIN COMPARISON: None available. TECHNIQUE: AP external rotation, Grashey, scapular Y, and axillary views of the right shoulder. FINDINGS: There are well corticated calcifications in the supraspinatus tendon region. No acute cortical disruption or malalignment. No lytic or blastic lesions. XR/XR shoulder RT min 2V IMPRESSION: Calcific tendinosis/tendinopathy, right supraspinatus. Synovial chondromatosis should be considered. Electronically signed by: Brady Anderson MD 12/20/2024 03:45 PM EDT
--- OUTSIDE RECORDS SUMMARY | 2024-12-20 15:07 | XMS_ITS | Clinical Summary ---
Author Organization [address] [place] [address] [place] [phone] Phone Care Team Providers Care Food Beverage Supervisor Name Role Phone Floresita Potter MD Primary Care Provide r Medications miconazole (Lotrimin AF) 2 % powder Apply topically 2 (two) times a day for 28 days. 70 g 3 5 01/04/20 25 Active Encounters Date Type Department Care Team Description 12/06/2024 2:15 PM EDT Consult Orthopedic Surgery [facility] [address] [place] [phone] Manny Lucas, DPM Tinea pedis of both feet (Primary Dx); Type 2 diabetes mellitus without complication, without long-term current use of insulin ([facility] V24, [facility] V28); Diabetic mononeuropathy simplex ([facility] V24, [facility] V28) from Last 3 Months Social History [...] to complete this topic Insurance [place]ICA[place] - [place] Care Teams Food Beverage Supervisor Relationship Specialty Start Date End Date Floresita Potter MD [address] [phone] PCP - General Internal Medicine 08/17/24
--- OUTSIDE RECORDS SUMMARY | 2024-12-20 15:07 | XMS_ITS | Encounter Summary ---
Author Organization [employer] Address [address] [place] [address] Care Team Providers Care Volunteer Fire Fighter Name Role Phone Floresita Potter MD Primary Care Provide r Reason for Visit * Reason Onset Date Comments Referral 03/23/2024 Encounter Details Date Type Department Care Team ([facility] Contact Info) Description 03/23/2024 Telephone [facility] MEDICINE [address] [place], [place] [phone] Floresita Potter MD 230 [place], [place] [phone] Referral Social History Tobacco Use Types Packs/Day [...] pt leaving on vacation soon. Callback number [phone] documented in this encounter Plan of Treatment Upcoming Encounters Date Type Department Care Team (Late st Contact Info) Description 12/23/2024 1:00 PM EDT Office Visit [facility] MEDICINE [address] [place] [phone] Floresita Potter MD [address] [place] [phone] 01/14/2025 2:00 PM EDT Office Visit [facility] MED[facility]INE [address] [place] [phone] Floresita Potter MD [address] [place] [phone] documented as of this encounter Visit Diagnoses Not on filedocumented in this encounter Additional Health Concerns Assessment Noted Time PHQ-9 Depression Total Score: 14 023 10:06 AM EST documented as of this encounter Care Teams Volunteer Fire Fighter Relationship Specialty Start Date End Date Floresita Potter MD 230 [place] [phone] PCP - General Family Medicine 04/09/18 documented as of this encounter
== END 2024-12-20 14:24 | disposition home or self-care (01) ==
LOC: HO.HHCX 14:23
PROVIDERS: Visit Provider Nurse Practitioner Family
DX: M25.511 Pain in right shoulder (principal)
CPT/HCPCS: 73030

== ENCOUNTER → 2024-12-20 14:28 | Outpatient (BNV) | payer MEDICAID, SELFPAY | PROVIDERS: Visit Provider Radiology Diagnostic Radiology | DX: M25.511 Pain in right shoulder (principal) | CPT/HCPCS: 73030 ==

== ENCOUNTER 2025-02-02 10:15 | Outpatient (REF) | payer MEDICAID, SELFPAY ==
--- OUTSIDE RECORDS SUMMARY | 2025-02-02 11:30 | XMS_ITS | Encounter Summary ---
Author Organization [employer] Address [address] [place] [address] Care Team Providers Care Motor Equipment Lieutenant Name Role Phone Floresita Potter MD Primary Care Provide r Reason for Visit * Reason Onset Date Comments Referral 03/23/2024 Encounter Details Date Type Department Care Team ([facility] Contact Info) Description 03/23/2024 Telephone [facility] MEDICINE 230 [place], [place] [phone] Floresita Potter MD 230 [place], [place] [phone] Referral Social History Tobacco Use Types Packs/Day [...] with others, in a hotel, in a snf, living outside on the street, on a [...] pt leaving on vacation soon. Callback number [phone] documented in this encounter Plan of Treatment Upcoming Encounters Date Type Department Care Team (Late st Contact Info) Description 02/14/2025 11:00 AM EDT Telemedicine [facility] MEDICINE [address] [place] [phone] Floresita Potter MD 230 [place] [phone] documented as of this encounter Visit Diagnoses Not on filedocumented in this encounter Additional Health Concerns Assessment Noted Time PHQ-9 Depression Total Score: 14 023 10:06 AM EST documented as of this encounter Care Teams Motor Equipment Lieutenant Relationship Specialty Start Date End Date Floresita Potter MD [address] [place] [phone] PCP - General Family Medicine 04/09/18 documented as of this encounter
--- OUTSIDE RECORDS SUMMARY | 2025-02-02 11:31 | XMS_ITS | Encounter Summary ---
Author Organization [employer] [facility] Address [address] [place] [address] [address] [place] [address] Care Team Providers Care Transfer Pumper Name Role Phone Floresita Potter MD Primary Care Provide r Cristo Rivas Unavailable Unavailable Encounter Details Date Type Department Care Team (Late st Contact Info) Description 04/16/2022 Abstract [facility] MEDICINE [address] [place] [phone] Chris Chen RN Social History Tobacco Use Types Packs/Day Years Used Date Smoking Tobacco: Never Assessed Sex and Gender Information Value Date Recorded Sex Assigned at Male 03/04/2022 10:17 AM EDT Legal Sex Male 10:17 AM EDT Gender Identity Male 03/04/2022 10:17 AM EDT Sexual Orientation Straight 03/04/2022 10 :17 AM EDT documented as of this encounter Plan of Treatment Upcoming Encounters Date Type Department Care Team (Late st Contact Info) Description 02/14/2025 11:00 AM EDT Telemedicine [facility] MED[facility]INE [address] [place] [phone] Floresita Potter MD [address] [place] [phone] documented as of this encounter Visit Diagnoses Not on filedocumented in this encounter Care Teams Transfer Pumper Relationship Specialty Start Date End Date Floresita Potter MD [address] [place] [phone] PCP - General Family Medicine 04/09/18 Cristo Rivas FNP [address] [place] [phone] Nurse Practitioner Family Medicine 03/26/23 04/14/23 documented as of this encounter
--- OUTSIDE RECORDS SUMMARY | 2025-02-02 11:31 | XMS_ITS | Clinical Summary ---
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 long-term current use of insulin (CMS/HCC); Class 3 severe obesity due to excess calories with serious comorbidity and body mass index (BMI) greater than or equal to 70 in adult; Primary hypertension; Dietary counseling; Exercise counseling 12/23/2024 Travel 12/21/[address] [facility] MED & PEDS [address] [place] [address] Floresita Potter MD Chart Prep 12/20/2024 2:00 PM EDT Office Visit [facility] WALK[facility]IN CENTER [address] [place] [phone] Josefina Sanchez NP Acute pain of right shoulder (Primary Dx) 12/20/2024 Travel 12/16/2024 Patient Outreach [facility] MEDICINE [address] [place] [address] Floresita Potter MD Pre-visit Planning (SDOH screening completed on 07/16/24 ) 12/15/[address] [facility] MEDICINE [address] [place] [address] Floresita Potter MD Primary hypertension; Essential hypertension 12/13/[address] [facility] MEDICINE [address] [place] [address] Mary Anne Vivas RN Lab Orders 12/13/[address] [facility] MEDICINE [address] [place] [address] Floresita Potter MD Iron deficiency anemia, unspecified iron deficiency anemia type; Type 2 diabetes mellitus without complication, without long-term current use of insulin ([facility]); Anemia, unspecified type 12/09/[address] [facility] OPTOMETRY [address] [place] [address] MatthewDelia, OD 11/16/[address] [facility] MEDICINE [address] [place] [address] Floresita Potter MD IZ from Last 3 Months Immunizations Immunization Administration Dates Next Due HepB-CpG 11/08/2022 Influenza injectable quadriv alent IIV4 with preservative 02/22/2016,02/03/2015 Influenza injectable quadriv alent preservative free 06/13/2023,04/12/2020,01/28/2019,2017 Influenza, IIV3, injectable 04/07/2014 Influenza, Split (incl. vaishnvai fied surface antigen) 03/30/2013 Influenza, seasonal, injecta ble, preservative free 07/16/2024 Moderna Covid-19 Vaccine 12+ 09/04/2020,08/08/19 21 Pfizer Covid-19 Vaccine 12+ 06/13/2023 Tdap 08/08/2014 Social History Tobacco Use Types Packs/Day Years Used Date Smoking Tobacco: Never Passive Smoke Exposure: Never Smokeless Tobacco: Never Tobacco Cessation:Counseling Given: Not Answered Alcohol Use Standard Drinks/Week Comments Never 0 (1 standard drink = 0.6 oz pur e alcohol) Depression Answer Date Recorded Patient Health Questionnaire-9 Score 0 07/16/2024 Patient Health Questionnaire-9 Score 0 07/16/2024 Last PHQ-9: Questionnaire Data Not on file 0 07/16/2024 Housing Stability Answer Date Recorded What is your housing situation today? I do not have housing (Staying with others, in a hotel, in a correction, living outside on the street, on a beach, in a car, or in a park 07/16/[address] you li ve. Do you have problems with any of the following? None of the above;I am not sure 07/16/2024 Food Insecurity Answer Date Recorded Within the past 12 months, y ou worried that your food would run out before you got money to buy more: Sometimes True 2024 Within the past 12 months,th e food you bought just didn't last and you didn't have enough money to get more: Sometimes True 07/16/2024 Transportation Answer Date Recorded In the past 12 months, has l ack of transportation kept you from medical appts, meetings, work or from getting things needed for daily living? No 07/16/2024 Utilities Answer Date Recorded In the past 12 months, has t he electric, gas, oil or water company threatened to shut off services in your home? I am not sure 07/16/2024 Depression Answer Date Recorded Patient Health Questionnaire-2 Score 0 07/16/2024 Internet Access Answer Date Recorded Internet Access Q1 I am not sure 07/16/2024 Internet Access Q2 Not on file 07/16/2024 Sex and Gender Information Value Date Recorded Sex Assigned at Male 03/04/2022 10:17 AM EDT Legal Sex Male 10:17 AM EDT Gender Identity Male 03/04/2022 10:17 AM EDT Sexual Orientation Straight 03/04/2022 10 :17 AM EDT Last Filed Vital Signs Vital Sign Reading Time Taken Comments Blood Pressure 130/80 01/14/2025 1:58 PM EDT Pulse 103 01/14/2025 1:58 PM EDT Temperature 36.6 C (97.8 F) 01/14/2025 1:58 PM EDT Respiratory Rate 20 01/14/2025 1:58 PM EDT Oxygen Saturation 96% 01/14/2025 1:58 PM EDT Inhaled Oxygen Concentration - - Weight 199 kg (439 lb) 01/14/2025 1:58 PM EDT Height 165.1 cm (5' 5 ) 01/14/2025 1:58 PM EDT Body Mass Index 73.05 01/14/2025 1:58 PM EDT Plan of Treatment Upcoming Encounters Date Type Department Care Team (Late st Contact Info) Description 02/14/2025 11:00 AM EDT Telemedicine [facility] MEDICINE [address] [place], [place] [phone] Floresita Potter MD [address] [place], [place] [phone] Health Maintenance Due Date Last Done Comments Diabetes: Foot Exam 2004 Eye Exam 2004 Family Planning (PISQ) 2009 HPV Vaccines (1 - Male 3-dose series) 2009 Pneumococcal Vaccine: Pediatrics (0 to 5 Years) and At-Risk Patients (6 to 49) Years (1 of 2 - PCV) 2013 Hepatitis B Vaccines (2 of 2 - CpG 2-dose series) 12/06/2022 11/08/2022 Dental Oral Exam 08/07/2023 02/04/2023, 12/2020, 01/10/2021, Additional history exists Dental X-Ray: Full Mouth 01/12/2024 01/10/2021 Dental X-Ray: Bitewings 02/06/2024 02/05/20 23, 01/10/2021, 04/07/2013 Dental Prophylaxis 02/07/2024 08/07/2023, 1 , 01/26/2021, Additional history exists DTaP/Tdap/Td Vaccines (2 - Td or Tdap) 08/08/2024 08/08/2014 COVID-19 Vaccine ( season) 2025 06/13/2023, 09/04/2020, 08/07/2020 Influenza Vaccine (#1) 2025 5, 06/13/2023, 04/12/2020, Additional history exists Diabetes: Hemoglobin A1C 06/25/2025 025, 09/20/2024, 07/16/2024, Additional history exists Alcohol/Substance Use Screening 07/16/2025 07/16/2024 Depression Screening 07/16/2025 07/16/2024, 07/17/19 25 SDOH Screening 07/16/2025 07/16/2024 Diabetes: Urine Protein Screening 07/30/2025 07/30/2024, 06/20/2023 Lipid Panel 07/30/2025 07/30/2024, 08/01/2024, 06/20/2023, Additional history exists Disability Screening 01/07/2026 01/07/2025 Tobacco Screening 01/14/2026 01/14/2025 Zoster Vaccines (1 of 2) 2044 RSV Patients and Patients Aged 60 years or older (1 - 1-dose 75+ series) 2069 HIV Screening Completed 07/30/2024, 06/20/2023 Hepatitis C Screening Completed 07/30/2024, 024 HIB Vaccines Aged Out No longer eligi [...] patient's age to complete this topic Meningococcal Vaccine Aged Out No lakia hua eligible based on patient's age to complete this topic RSV under 20 months Aged Out No longe r eligible based on patient's age to complete this topic Rotavirus Vaccines Aged Out No longer eligible based on patient's age to complete this topic Procedures Procedure Name Priority Date/Time Associated Diagnosis Comments POCT GLYCATED HEMOGLOBIN, TOTAL Routine 12/23/2024 1:21 PM EDT Type 2 diabetes mellitus without complication, without long-term current use of insulin (CMS/HCC) POCT GLUCOSE Routine 12/23/2024 1:20 PM EDT Type 2 diabetes mellitus without complication, without long-term current use of insulin (CMS/HCC) XR SHOULDER 2+ VIEWS RIGHT Routine 12/20/2024 2:28 PM EDT Acute pain of right shoulder HEPATITIS B SURFACE ANTIBODY, QUALITATIVE Routine 12/09/2024 1:13 PM EDT Preventative health care T-SPOT(R).TB Routine 12/09/2024 1:13 PM EDT Encounter for screening for respiratory tuberculosis ALBUMIN, RANDOM URINE W/CREATININE Routine 07/30/2024 10:48 AM EDT Type 2 diabetes mellitus without complication, without long-term current use of insulin (CMS/HCC) HEPATITIS C AB W/REFL TO HCV RNA, QN, PCR Routine 07/30/2024 10:45 AM EDT Class 3 severe obesity due to excess calories with serious comorbidity and body mass index (BMI) greater than or equal to 70 in adult (CMS/HCC) HIV 1/2 ANTIGEN/ANTIBODY, FOURTH GENERATION W/RFL Routine 07/30/2024 10:45 AM EDT Class 3 severe obesity due to excess calories with serious comorbidity and body mass index (BMI) greater than or equal to 70 in adult (CMS/HCC) LIPID PANEL, STANDARD Routine 07/30/2024 10:45 AM EDT Type 2 diabetes mellitus without complication, without long-term current use of insulin (CMS/HCC) Class 3 severe obesity due to excess calories with serious comorbidity and body mass index (BMI) greater than or equal to 70 in adult (CMS/HCC) PROPHYLAXIS - ADULT Routine 08/07/2023 1 :00 PM EDT Dental calculus BITEWINGS - 4 RADIOGRAPHIC IMAGES Routine 02/04/2023 1:00 PM EDT Dental calculus Gingivitis INTRAORAL - COMPLETE SERIES OF RADIOGRAPHIC IMAGES Routine 01/10/2021 12:00 AM EDT PERIODIC ORAL EVALUATION - ESTABLISHED PATIENT Routine 01/10/2021 12:00 AM EDT from Last 3 Months or Most Recently Relevant to Health Maintenance Results * (ABNORMAL) POCT HGB A1C (12/23/2024 1:21 PM EDT) Hemoglobin A1C 6.1(A) 4.0 - 5.7 % QC Media Lot # [id number] Lot# Expiration Date Blood 12/23/2024 1:21 PM EDT Floresita Ferrer MD POINT OF CARE TEST EN TER/EDIT ORDERABLES Final Result * POCT Glucose (12/23/2024 1:20 PM EDT) Glucose Blood, POC 120 60 - 200 mg/dL QC Media Lot # [id number] Lot# Expiration Date Blood Capillary blood specimen / Unknown 12/23/2024 1:20 PM EDT Flroesita Ferrer MD POINT OF CARE TEST EN TER/EDIT ORDERABLES Final Result * XR Shoulder 2+ Views Right (12/20/2024 2:28 PM EDT) Anatomical Region Laterality Modality Upper Extremities, Shoulder Right Radi ographic Imaging 12/20/2024 2:28 PM EDT Narrative 12/20/2024 3:48 PM EDT [facility] [address] [place] [address] XRay Report Signed Patient: Evin Abrams MR#: [id number] : 1995 Acct:[id number] Age/Sex: 29 / M ADM Date: 12/20/24 Loc: HO.HHCX Attending Dr: Josefina Sanchez [employer]ATOR [employer] Ordering Physician: Josefina Sanchez NP Date of Service: 12/20/24 Procedure(s): XR shoulder RT min 2V Accession Number(s): [id number] cc: Josefina Sanchez [employer] EXAMINATION: XR SHOULDER, RIGHT CLINICAL INFORMATION: PAIN COMPARISON: None available. TECHNIQUE: AP external rotation, Grashey, scapular Y, and axillary views of the right shoulder. FINDINGS: There are well corticated calcifications in the supraspinatus tendon region. No acute cortical disruption or malalignment. No lytic or blastic lesions. XR/XR shoulder RT min 2V IMPRESSION: Calcific tendinosis/tendinopathy, right supraspinatus. Synovial chondromatosis should be considered. Electronically signed by: Brady Anderson MD 12/20/2024 03:45 PM EDT Dictated By: Brady Caraballo MD Signed By: <Electronically signed by Brady Méndez MD in OV> 12/20/24 1545 DD/ 1428 TD/TT: 12/20/24 1450 Fine Arts Teacher: Procedure Note Donotuseinterpreter, Image - 12/20/[address] [address] XRay Report Signed Patient: Evin Abrams MR#: [id number] : 1995Acct:[id number] Age/Sex: 29 / MADM Date: 12/20/24 Loc: HO.HHCX Attending Dr: Josefina Sanchez [employer] Ordering Physician: Josefina Sanchez NP Date of Service: 12/20/24 Procedure(s): XR shoulder RT min 2V Accession Number(s): [id number] cc: Josefina Sanchez [employer] EXAMINATION: XR SHOULDER, RIGHT CLINICAL INFORMATION: PAIN COMPARISON: None available. TECHNIQUE: AP external rotation, Grashey, scapular Y, and axillary views of the right shoulder. FINDINGS: There are well corticated calcifications in the supraspinatus tendon region. No acute cortical disruption or malalignment. No lytic or blastic lesions. XR/XR shoulder RT min 2V IMPRESSION: Calcific tendinosis/tendinopathy, right supraspinatus. Synovial chondromatosis should be considered. Electronically signed by: Brady Anderson MD 12/20/2024 03:45 PM EDT RP Dictated By: Brady Caraballo MD Signed By: <Electronically signed by Brady Méndez MDin OV> 12/20/24 1545 DD/ 1428 TD/TT: 12/20/24 1450 Fine Arts Teacher: us Josefina Sanchez [employer] IMG XR PROCEDURES Final Result * T-SPOT??.TB (12/09/2024 1:13 PM EDT) Pathologist [facility] T Spot TB [facility] Comment: * Test not performed. * * An insufficient number of * * peripheral blood mononuclear * * cells were isolated from the * * sample. Please refer to the * * [employer] [facility] Directory of * * Service for specimen * * requirements and resubmit a * * new sample. * REPORT COMMENT:REC'D AT [facility] TEST WAS PERFORMED AT:[facility] [place] [address]ZVLEEWIDEANNE COLON MD,PHD TS PANEL A [facility] TS PANEL B [facility] Negative Control [facility] Positive Control [facility] 12/09/2024 1:13 PM EDT 12/09/2024 4:10 PM EDT us Floresita Ferrer MD LAB BLOOD ORDERABLES Final Result [facility] [address] [place] [phone] * Hepatitis B Surface Antibody, Qualitative (12/09/2024 1:13 PM EDT) ~Hepatitis B Surface Antibody REACTIVE Nonreactive [facility] Comment:REACTIVE: > 11.99 mI U/mL Blood Venous blood specimen / Unknown 12/09/2024 1:13 PM EDT 12/09/2024 4:10 PM EDT Floresita Ferrer MD LAB BLOOD ORDERABLES Final Result Performing Organization Address [facility] de Phone Number [facility] [address] [place] [phone] * (ABNORMAL) Albumin, Random Urine W/Creatinine (07/30/2024 10:48 AM EDT) Pathologist [facility] Creatinine, Urine 188.84 mg/dL [facility] Microalbumin Urine 122.0 mg/L H [facility] Microalbum Creatinine Ratio Ur 64.6(H) <30 ug/mg cr [facility] Comment:Albumin/Creatinine R atio Reference Ranges: Normal: < 30 ug/mg creatinine Microalbuminuria: 30 - 300 ug/mg creatinineClinical Albuminuria: > 300 ug/mg creatinine Urine (Urine, Random) 07/30/2024 10:48 AM EDT 07/30/2024 1:05 PM EDT Floresita Ferrer MD LAB URINE ORDERABLES Final Result Performing Organization Address [facility] Co de Phone Number [facility] [address] [place] [phone] * Hepatitis C Antibody with Reflex to HCV, RNA, Quantitative, Real-Time PCR (07/30/2024 10:45 AM EDT) Hepatitis C Antibody Nonreactive Nonreactive [facility] Comment:Antibodies to HCV no t detected; does not exclude early acuteHCV infection. Blood Venous blood specimen / Unknown 07/30/2024 10:45 AM EDT 07/30/2024 1:46 PM EDT Floresita Ferrer MD LAB BLOOD ORDERABLES Final Result Performing Organization Address [facility]/ZIP Co de Phone Number [facility] [address] [place] [phone] * HIV-1/2 Antigen and Antibodies, Fourth Generation, with Reflexes (07/30/2024 10:45 AM EDT) HIV AB/AG Nonreactive Nonreactive [facility] Comment:HIV-1 p24 Ag and/or HIV-1/HIV-2 Ab not detected.A test result that is nonreactive does not exclude thepossibility of exposure to or infection with HIV-1 and/orHIV-2. Nonreactive results in this assay for individualswith prior exposure to HIV-1 and/or HIV-2 may be due toantigen and antibody levels that are below the limit ofdetection of this assay.The [employer] HIV Ag/Ab Combo assay result andsupplemental assay results should be interpreted inconjunction with the patient's clinical presentation,history and other laboratory results. If the results areinconsistent with clinical evidence, additional testing issuggested to confirm the result. Blood Venous blood specimen / Unknown 07/30/2024 10:45 AM EDT 07/30/2024 1:46 PM EDT us Floresita Ferrer MD LAB BLOOD ORDERABLES Final Result Performing Organization Address City/[facility]/ZIP Co de Phone Number [facility] [address] [place] [phone] * (ABNORMAL) Lipid Panel, Standard (07/30/2024 10:45 AM EDT) Triglycerides 77 <150 mg/dL [facility] Comment:Desirable Triglyceri de: less than 150 mg/dLBorderline High Triglyceride 150-199 mg/dLHigh Triglyceride: 200-499 mg/dLVery High Triglyceride: greater than or equal to 5OO mg/dL Cholesterol 169 <200 mg/dL [facility] Comment:Desirable Cholestero l: less than 200 mg/dLBorderline High Cholesterol: 200-239 mg/dLHigh Cholesterol: greater than 239 mg/dL LDL Cholesterol Calculated 109(H) <100 mg/dL [facility] Comment:Desirable LDL: less than 100 mg/dLNear Optimal/Above Optimal LDL: 110- 129 mg/dLBorderline High LDL: 130-159 mg/dLHigh LDL: 160-189 mg/dLVery High LDL: greater than or equal to 190 mg/dL HDL Cholesterol 45 >40 mg/dL [facility] Comment:Desirable HDL: great er than 40 mg/dL Note: This HDL assay may give artificially low results in patients with liver disease. Blood Venous blood specimen / Unknown 07/30/2024 10:45 AM EDT 07/30/2024 1:46 PM EDT Floresita Ferrer MD LAB BLOOD ORDERABLES Final Result [facility] [address] [place] [phone] from Last 3 Months or Most Recently Relevant to Health Maintenance Insurance [facility] [place] AD[place] Care Teams Band Sawyer Relationship Specialty Start Date End Date Floresita Potter MD [address] [place] [phone] PCP - General Family Medicine 04/09/18
--- OUTSIDE RECORDS SUMMARY | 2025-02-02 11:31 | XMS_ITS | Encounter Summary ---
Author Organization [employer] [facility] Address [address] [place] [address] [address] [place] [address] Care Team Providers Care Clothes Drier Repairer Name Role Phone Floresita Potter MD Primary Care Provide r Cristo Rivas Unavailable Unavailable Encounter Details Date Type Department Care Team (Latest Contact Info) Description 01/26/[address] [facility] CONVERSIONS Dental, Provider, DDS Social History Tobacco Use Types Packs/Day Years [...] 11:00 AM EDT Telemedicine [facility] MEDICINE [address] [place] [address] Floresita Potter MD [address] [place] [address] documented as of this encounter Visit Diagnoses Not on filedocumented in this encounter Care Teams Clothes Drier Repairer Relationship Specialty Start Date End Date Floresita Potter MD [address] [place] [address] [phone] PCP - General Family Medicine 04/09/18 Cristo Rivas FNP [address] [place] [phone] Nurse Practitioner Family Medicine 03/26/23 04/14/23 documented as of this encounter
--- OUTSIDE RECORDS SUMMARY | 2025-02-02 11:31 | XMS_ITS | Encounter Summary ---
Author Organization [employer] Address [address] [place] [address] Care Team Providers Care Removable Prosthodontist Name Role Phone Floresita Potter MD Primary Care Provide r Reason for Visit * Reason Comments Med Refill Encounter Details Date Type Department Care Team ([facility] st Contact Info) Description 10/19/2023 Refill [facility] MEDICINE [address] [place] [address] Cristo Rivas FNP Social History Tobacco Use Types Packs/Day Years [...] with others, in a hotel, in a penitentiary, living outside on the street, on a [...] Info) Description 02/14/2025 11:00 AM EDT Telemedicine [facility] MEDICINE [address] [place] [phone] Floresita Potter MD [address] [place] [address] documented as of this encounter Visit Diagnoses Not on filedocumented in this encounter Additional Health Concerns Assessment Noted Time PHQ-9 Depression Total Score: 14 023 10:06 AM EST documented as of this encounter Care Teams Removable Prosthodontist Relationship Specialty Start Date End Date Floresita Potter MD [address] [place] [phone] PCP - General Family Medicine 04/09/18 documented as of this encounter
--- OUTSIDE RECORDS SUMMARY | 2025-02-02 11:31 | XMS_ITS | Encounter Summary ---
Author Organization [email or web address] Address [address] [place] [address] Street [address] [place] [address] Care Team Providers Care Information Receptionist Name Role Phone Floresita Potter MD Primary Care Provide r Reason for Visit * Reason Comments Med Refill Encounter Details Date Type Department Care Team ([facility] st Contact Info) Description 07/29/[address] [facility] MEDICINE [address] [place], [place] [phone] Floresita Potter MD [address] [place], [place] [phone] Essential hypertension Social History Tobacco Use Types Packs/Day Years [...] with others, in a hotel, in a fpc, living outside on the street, on a [...] Info) Description 02/14/2025 11:[address] [facility] MEDICINE [address] [place] [address] Floresita Potter MD [address] [place] [address] documented as of this encounter Visit Diagnoses Diagnosis Essential hypertension Unspecified essential hypertension documented in this encounter Additional Health Concerns Assessment Noted Time PHQ-9 Depression Total Score: 0 07/17/19 25 2:40 PM EDT documented as of this encounter Care Teams Information Receptionist Relationship Specialty Start Date End Date Floresita Potter MD [address] [place] [phone] PCP - General Family Medicine 04/09/18 documented as of this encounter
--- OUTSIDE RECORDS SUMMARY | 2025-02-02 11:31 | XMS_ITS | Encounter Summary ---
Author Organization [employer] Address [address] [place] [address] Street 7 [place] [address] Care Team Providers Care Spa Associate Name Role Phone Floresita Potter MD Primary Care Provide r Reason for Visit * Reason Onset Date Comments Nurse Triage 11/05/2023 Encounter Details Date Type Department Care Team ([facility] st Contact Info) Description 11/05/2023 Telephone [facility] MEDICINE 230 [place], [place] [phone] Floresita Potter MD 230 [place], [place] [phone] Nurse Triage Social History Tobacco Use Types Packs/Day Years [...] with others, in a hotel, in a longterm, living outside on the street, on a [...] encounter Miscellaneous Notes * Telephone Encounter - Freda Moran, KATIE - 11/05/2023 11:39 AM EDT Triage call returned to patient with [employer] Clinical Psychologist Licensed [id number]. Patient reports one week of pain in lungs when I fill my lungs with air Feels like there is some noise like a rubbing sound. No wheezing. No phlegm. No fever. Denies centralized chest pain or pressure no neck jaw or arm pain. No dizziness or weakness. Does not have current BP reading and does not test BG. Reports he is taking BP med previously ordered. Patient does not have inhaler available. Disposition reviewed and pateitn in agreement with plan. Disposition reviewed and no PCP or Team appts available at time of call. Patient advised of [facility] hours and availability for today and tomorrow at time of call. Triage nurse info rmed the patient may have a wait of 1-2 hours because [facility] may have delays from patient???s walking in with urgent medical needs. Insurance verified at time of call. Multiple (2) protocols were used on this call. Disposition for Call: Go to Urgent Care Now Protocol Used: Breathing Difficulty (Adult) Protocol-Based Disposition: Go to Office or Video Visit Now Override (Final) Disposition: Go to Urgent Care Now Override Reason: No appointments available Video visit not offered Positive Triage Question: * Patient wants to be seen * All higher-acuity triage questions were negative Care Advice Discussed: * Reasons To Call Back - Severe difficulty breathing occurs - Fever more than 100.4 F (38.0 C) - You become worse Protocol Used: Chest Pain (Adult) Protocol-Based Disposition: See in Office or Video Visit Today Video visit not offered Positive Triage Question: * All other patients with chest pain (Exception: Fleeting chest pain lasting a few seconds.) * All higher-acuity triage questions were negative * Telephone Encounter - Aisha Hankins - 11/05/2023 10:51 AM EDT Symptom: Chest Pain - Adult Outcome: Schedule an urgent appointment (within 1 hour) or talk to a nurse or provider soon Reason: Caller denied all higher acuity questions The caller accepted this outcome Please contact pt at [phone] documented in this encounter Plan of Treatment Upcoming Encounters Date Type Department Care Team (Late st Contact Info) Description 02/14/2025 11:00 AM EDT Telemedicine [facility] MEDICINE [address] [place] [phone] Floresita Potter MD [address] [place] [address] documented as of this encounter Visit Diagnoses Not on filedocumented in this encounter Additional Health Concerns Assessment Noted Time PHQ-9 Depression Total Score: 14 023 10:06 AM EST documented as of this encounter Care Teams Spa Associate Relationship Specialty Start Date End Date Floresita Potter MD [address] [place] [phone] PCP - General Family Medicine 04/09/18 documented as of this encounter
--- OUTSIDE RECORDS SUMMARY | 2025-02-02 11:31 | XMS_ITS | Clinical Summary ---
Author Organization [address] [place] [address] [place] [phone] Phone Care Team Providers Care Hydraulic Plumber Name Role Phone Floresita Potter MD Primary Care Provide r Medications miconazole (Lotrimin AF) 2 % powder Apply topically 2 (two) times a day for 28 days. 70 g 3 5 01/04/20 25 Encounters Date Type Department Care Team Description 12/06/2024 2:15 PM EDT Consult Orthopedic Surgery [facility] [address] [place] [phone] Manny Lucas, DPM Tinea pedis of both feet (Primary Dx); Type 2 diabetes mellitus without complication, without long-term current use of insulin ([facility] V24, [facility] V28); Diabetic mononeuropathy simplex ([facility] V24, [facility] V28) from Last 3 Months Social History [...] 2 - CpG 2-dose series) 12/06/2022 11/08/2022 Depression Screening 05/05/2024 DTaP,Tdap,and Td Vaccines (2 - Td or Tdap) 08/08/2024 08/08/2014 Social Influencers of Health Screening 08/17/2024 Diabetes: Annual Urine Albumin-Creatinine Ratio (uACR) 12/06/2024 Hypertension/CHF/CAD Annual BMP Blood Test 12/06/2024 COVID-19 Vaccine ( season) 2025 06/13/2023, 09/04/2020, 08/07/2020 Influenza Vaccine (#1) 2025 , 06/13/2023, 04/12/2020, Additional history exists Diabetes: Blood Sugar Control Test (HGBA1C) 03/23/2025 09/20/2024 Cholesterol Screening (Lipid Panel) 07/30/2029 07/30/2024 RSV Immunization Adult Patients (1 - 1-dose 75+ series) 2069 HIV Screening Completed 07/30/2024 Hepatitis C Screening [...] to complete this topic Insurance [place] Care Teams Hydraulic Plumber Relationship Specialty Start Date End Date Floresita Potter MD [address] [place] [phone] PCP - General Internal Medicine 08/17/24
--- OUTSIDE RECORDS SUMMARY | 2025-02-02 11:31 | XMS_ITS | Encounter Summary ---
Author Organization [employer] Address [address] [facility] [address] 7[address] [place] [address] Care Team Providers Care Senior Computer Specialist Name Role Phone Floresita Potter MD Primary Care Provide r Encounter Details Date Type Department Care Team (Late st Contact Info) Description 07/22/2024 Orders Only [facility] MEDICINE 230 [place], [place] [phone] Floresita Potter MD 230 [place], [place] [phone] Social History Tobacco Use Types Packs/Day Years [...] with others, in a hotel, in a care home, living outside on the street, on [...] Info) Description 02/14/2025 11:00 AM EDT Telemedicine [facility] MEDICINE [address] [place] [address] Floresita Potter MD 230 [place] [address] documented as of this encounter Visit Diagnoses Not on filedocumented in this encounter Additional Health Concerns Assessment Noted Time PHQ-9 Depression Total Score: 0 07/17/19 25 2:40 PM EDT documented as of this encounter Care Teams Senior Computer Specialist Relationship Specialty Start Date End Date Floresita Potter MD 230 [place] [address] PCP - General Family Medicine 04/09/18 documented as of this encounter
--- OUTSIDE RECORDS SUMMARY | 2025-02-02 11:31 | XMS_ITS | Encounter Summary ---
Author Organization [employer] Address [address] [facility] [address] 7 [place] [address] Care Team Providers Care Form Maker Plaster Name Role Phone Floresita Potter MD Primary Care Provide r Reason for Visit * Reason Onset Date Comments Appointment Request 05/15/2023 Encounter Details Date Type Department Care Team ([facility] st Contact Info) Description 05/15/2023 Telephone [facility] MEDICINE 230 [place], [place] [phone] Floresita Potter MD 230 [place], [place] [phone] Appointment Request Social History Tobacco Use Types Packs/Day Years [...] with others, in a hotel, in a fdc, living outside on the street, on a beach, in a car, or in a park 02/12/[address] you li ve. Do you have problems with any of the following? Mold 02/12/2023 Food Insecurity Answer Date Recorded Within the [...] encounter Miscellaneous Notes * Telephone Encounter - Grace White - 05/15/2023 11:32 AM EST Tc from pt requesting a f/u appt with PCP, pt stated no concerns with health at this moment. documented in this encounter Plan of Treatment Upcoming Encounters Date Type Department Care Team (Late st Contact Info) Description 02/14/2025 11:00 AM EDT Telemedicine [facility] MEDICINE 230 [place] [address] Floresita Potter MD [address] [place] [address] documented as of this encounter Visit Diagnoses Not on filedocumented in this encounter Additional Health Concerns Assessment Noted Time PHQ-9 Depression Total Score: 14 023 10:06 AM EST documented as of this encounter Care Teams Form Maker Plaster Relationship Specialty Start Date End Date Floresita Potter MD [address] [place] [address] PCP - General Family Medicine 04/09/18 documented as of this encounter
[2025-02-02 14:59] LABS: Free T4 (Free Thyroxine) 1.11 ng/dL (0.71-1.85)
[2025-02-05 11:38] LABS: TS Negative Control Passed; TS Panel A 0; TS Panel B 0; TS Positive Control Passed; TSpotTB Negative (Negative)
== END 2025-02-02 10:16 | disposition home or self-care (01) ==
LOC: HO.HHCL 10:15
PROVIDERS: PCP Internal Medicine; Visit Provider Internal Medicine
DX: Z13.89 Encounter for screening for other disorder (principal)
CPT/HCPCS: 36415; 84439; 84443; 86481

== ENCOUNTER 2025-02-24 13:08 | Outpatient (AMB) | payer MEDICAID, SELFPAY ==
--- NOTE | 2025-02-24 13:39 | MHC.AMNUTRGE ---
VS Expanded 02/24/25 13:50 03/03/25 19:48 Height 5 ft 5 in Weight 425 lb 4 oz 425 lb BMI 70.8 70.7 Intake Visit Reasons: Obesity Allergies No Known Allergies (No Known Allergies*) Allergy (Verified 02/28/25 14:55) Nutrition Presentation Details: Pt presents for MNT for morbid obesity with T2DM Pt reports wt in 12/2024 at 446 lbs prior to starting zepbound in September 2023 Meal preparation: typically already made foods Beverages: carb containing beverages, working on reducing frequency acknowledges diff between hunger vs appetite: no eating due to stress/anxiety physical activity: currently sedentary etoh/smoking- denies BS Monitoring Most Recent Diabetes Results: Microalb/Creat Ratio, (<30) 64.6 ug/mg cr H 07/30/24 Cholesterol, (<200) 169 mg/dL 07/30/24 HDL Cholesterol, (>40) 45 mg/dL 07/30/24 Triglycerides, (<150) 77 mg/dL 07/30/24 Creatinine, (0.5-1.4) 0.76 mg/dL 07/30/24 BUN, (9-16) 12 mg/dL 07/30/24 Sodium, (135-145) 139 mmol/L 07/30/24 Potassium, (3.3-5.1) 4.8 mmol/L Δ 07/30/24 Chloride, (96-108) 102 mmol/L 07/30/24 Carbon Dioxide, (22-29) 31 mmol/L H 07/30/24 Calcium, (8.4-10.2) 9.6 mg/dL 07/30/24 AST, (5-37) 23 U/L 07/30/24 ALT, (0-40) 27 U/L 07/30/24 Total Protein, (6.5-8.0) 7.7 g/dL 07/30/24 Albumin, (3.5-5.0) 4.0 g/dL 07/30/24 ILR-Cuufdgz-Wp.Jeor Equation Height: 5 ft 5 in Weight: 425 lb Resting Metabolic Rate: 2815.11 Calculated Activity Level: Sedentary Calories Needed to Maintain Weight: 3378.13 Diagnosis Nutrition problem #1: excessive energy intake As related to (etiology) #1: diagnosis As evidenced by (sign/symptom) #1: high BMI and knowledge deficit of diet Monitoring/Goals Nutrition problem monitoring: total energy intake, level of knowledge/skill and weight Nutrition goal/outcome: list 3 CHO foods Outcome progress: verbalized understanding COUNTS INCLUDE 234 BEDS AT [facility] Medical History (Updated 01/30/24 @ 08:49 by López Fong MD) Sleep apnea Prediabetes Back pain Sleep apnea with use of continuous positive airway pressure (CPAP) Asthma Hypothyroidism Surgical History (Updated 02/25/25 @ 13:42 by Evelyn Vuong CMA) History of surgery on lower extremity Morbid obesity Family History Mother Amputated right leg Father No problems noted. Brother No problems noted. Brother No problems noted. Sister No problems noted. 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 Assessment & Plan Assessment & Plan (1) Diabetes mellitus: Code(s): E11.9 - Type 2 diabetes mellitus without complications Category: Medical Plan: current wt: 193 kg ( 02/26 ) est kcal needs as per MSJ: 3400 est protein needs as per 1 g/kg BW: 200 est fluid needs as per 30 ml/kg BW: 5800 Recommended fiber > 12 g /day and gradually increase up to 25-28 g /day or as tolerated Nutrition topics discussed : Reviewed (R), Pt verbalized understanding (V) , not applicable (N/A) R, : Healthy Plate Method Concept: R, : REDUCING SUGARS Carbohydrates: food sources of carbohydrates, relationship of carbohydrates to blood glucose, fatty liver GI health. Recommended total amount of carbohydrates per meals and snack. Differences between simple carbohydrates and complex carbohydrates R, V, N/A: Lean protein foods including vegan , vegetarian sources of protein. Benefits of protein (including but not limited to healing, nutritional value , benefits in weight loss, glucose control R, V, N/A: Fats : Source of fats, benefits of fats. Difference between saturated and unsaturated fats. Saturated fats and its contribution to inflammation R, V, N/A: Fiber: food sources and role of fiber in the diet (including but not limited to its role as a prebiotic, benefits in constipation, role in IBS , role in glucose control and cholesterol level) R, V, N/A: Hydration: role of hydration and prevention of dehydration or over hydration. Foods and water content. R, V, N/A: Vitamins and Minerals in foods and supplements R, V, N/A: Interpreting food labels, including serving size, macronutrients, vitamins, minerals, allergens, ingredient list , % daily value DISCUSSED MINDFUL EATING: R Patient Instructions: Practice mindful eating Work on reducing added sugars Follow healthy plate method at dinner Coding Level of Care Code Nutr Indiv Intake (90432) Diagnoses Diabetes mellitus E11.9 Time Spent (min) 30
[2025-02-24 13:50] VITALS: BMI 70.8
--- OUTSIDE RECORDS SUMMARY | 2025-02-24 16:30 | XMS_ITS | Encounter Summary ---
Author Organization [employer] Address [address] [facility] [address] 7 [place] [address] Care Team Providers Care Compress Engineer Name Role Phone Floresita Potter MD Primary Care Provide r Reason for Visit * Reason Onset Date Comments Medication Question 02/24/2025 Encounter Details Date Type Department Care Team ([facility] Contact Info) Description 02/24/[address] [facility] MEDICINE 230 [place], [place] [phone] Floresita Potter MD 230 [place], [place] [phone] Medication Question Social History Tobacco Use Types Packs/Day Years [...] with others, in a hotel, in a skilled nursing, living outside on the street, on a [...] encounter Miscellaneous Notes * Telephone Encounter - Aviva Ortiz - 02/24/2025 11:46 AM EDT Tc from pt requesting a call back in regard of Zepbound Please contact pt at [phone] Need otr flatbed driver documented in this encounter Plan of Treatment Upcoming Encounters Date Type Department Care Team (Late st Contact Info) Description 03/18/2025 12:45 PM EST Office Visit [facility] ADULT DENTAL 230 [place] [address] Woody Oteroaris [address] [place] [address] 04/19/2025 2:30 PM EST Office Visit [facility] MEDICINE 230 [place], [place] [phone] Floresita Potter MD 230 [place] [address] documented as of this encounter Visit Diagnoses Not on filedocumented in this encounter Additional Health Concerns Assessment Noted Time PHQ-9 Depression Total Score: 0 07/17/19 25 2:40 PM EDT documented as of this encounter Care Teams Compress Engineer Relationship Specialty Start Date End Date Floresita Potter MD 230 [place] [address] PCP - General Family Medicine 04/09/18 documented as of this encounter
--- OUTSIDE RECORDS SUMMARY | 2025-02-24 16:30 | XMS_ITS | Encounter Summary ---
Author Organization [employer] Address [address] [place] [address] Street 7 [place] [address] Care Team Providers Care Telemarketing Sales Representative Name Role Phone Floresita Potter MD Primary Care Provide r Reason for Visit * Reason Onset Date Comments Prior Authorization 02/23/2025 RAMYA PA: Chrissy. Encounter Details Date Type Department Care Team (Late st Contact Info) Description 02/23/2025 Telephone [facility] MEDICINE 230 [place], [place] [phone] Floresita Potter MD 230 [place] [address] Prior Authorization (RAMYA PA: Dana guilloryial.) Social History Tobacco Use Types Packs/Day Years [...] with others, in a hotel, in a retirement, living outside on the street, on a [...] Telephone Encounter - Aviva Ortiz - 02/24/2025 11:44 AM EDT Tc from pt requesting to summit a new PA Contact pt at [phone] Need audio/visual manager * Telephone Encounter - Genet Ayala - 02/24/2025 11:31 AM EDT PA Denial for Zepbound was received and uploaded to Media. * Telephone Encounter - Kaci Balderas - 02/23/2025 11:17 AM EDT Pt walked in requesting that PA for zepbound injection be sent radha as he is due for next injectionthis Sunday 02/25. documented in this encounter Plan of Treatment Upcoming Encounters Date Type Department Care Team (Late st Contact Info) Description 03/18/2025 12:45 PM EST Office Visit [facility] ADULT DENTAL 230 [place] [address] Woody Oteroaris [address] [place] [address] 04/19/2025 2:30 PM EST Office Visit [facility] MEDICINE 230 [place] [address] Floresita Potter MD [address] [place], [place] [phone] documented as of this encounter Visit Diagnoses Not on filedocumented in this encounter Additional Health Concerns Assessment Noted Time PHQ-9 Depression Total Score: 0 07/17/19 25 2:40 PM EDT documented as of this encounter Care Teams Telemarketing Sales Representative Relationship Specialty Start Date End Date Floresita Potter MD [address] [place] [phone] PCP - General Family Medicine 04/09/18 documented as of this encounter
--- OUTSIDE RECORDS SUMMARY | 2025-02-24 16:30 | XMS_ITS | Encounter Summary ---
Author Organization [employer] Address [address] [place] [address] 7 [place] [address] Care Team Providers Care Shade Matcher Name Role Phone Floresita Potter MD Primary Care Provide r Reason for Visit * Reason Onset Date Comments Prior Authorization 02/16/2025 PA: Luann und Encounter Details Date Type Department Care Team ([facility] st Contact Info) Description 02/16/2025 Telephone [facility] MEDICINE 230 [place], [place] [phone] Floresita Potter MD 230 [place], [place] [phone] Prior Authorization (RAMYA PA: Dana) Social History Tobacco Use Types Packs/Day Years [...] others, in a hotel, in a senior care, living outside on the street, on a [...] encounter Miscellaneous Notes * Telephone Encounter - Cristian Florina - 02/22/2025 1:25 PM EDT Tc from pt calling back regarding PA denial. Pt wants a call back regarding why PA was denied and would like to put another PA with more information. Contact pt at [phone] * Telephone Encounter - Karla Zamudio [place] - 02/22/2025 9:02 AM EDT Denial for Zepbound sent to scan * Telephone Encounter - Genet Ayala - 02/21/2025 12:04 PM EDT MH PA for Zepbound was generated and sent to plan via FAX with supporting documentation. Confirmation was uploaded to Media. * Telephone Encounter - Chase Ayala - 02/16/2025 10:56 AM EDT Tc from pt stating Zepbound needs a PA. If any questions contact pt at [phone]. documented in this encounter Plan of Treatment Upcoming Encounters Date Type Department Care Team (Late st Contact Info) Description 03/18/2025 12:45 PM EST Office Visit [facility] ADULT DENTAL 230 [place] [address] Branden, Alejandra 230 [place] [address] 04/19/2025 2:30 PM EST Office Visit [facility] MEDICINE 230 [place] [address] Floresita Potter MD [address] [place] [phone] documented as of this encounter Visit Diagnoses Not on filedocumented in this encounter Additional Health Concerns Assessment Noted Time PHQ-9 Depression Total Score: 0 07/17/19 25 2:40 PM EDT documented as of this encounter Care Teams Shade Matcher Relationship Specialty Start Date End Date Floresita Potter MD [address] [place] [phone] PCP - General Family Medicine 04/09/18 documented as of this encounter
--- OUTSIDE RECORDS SUMMARY | 2025-02-24 16:30 | XMS_ITS | Encounter Summary ---
Author Organization [employer] [facility] Address [address] [place] [address] 7 [place] [address] Care Team Providers Care Property Appraiser Name Role Phone Floresita Potter MD Primary Care Provide r Cristo Rivas Unavailable Unavailable Encounter Details Date Type Department Care Team (Late st Contact Info) Description 04/16/2022 Abstract [facility] MEDICINE [address] [place] [phone] Chris Chen, RN Social History Tobacco Use Types Packs/Day [...] Description 03/18/2025 12:45 PM EST Office Visit [facility] ADULT DENTAL [address] [place] [address] Alejandra Otero 230 [place] [address] 04/19/2025 2:30 PM EST Office Visit [facility] MEDICINE [address] [place] [phone] Floresita Potter MD [address] [place] [phone] documented as of this encounter Visit Diagnoses Not on filedocumented in this encounter Care Teams Property Appraiser Relationship Specialty Start Date End Date Flroesita Potter MD [address] [place] [phone] PCP - General Family Medicine 04/09/18 Cristo Rivas FNP 230 [place] [address] Nurse Practitioner Family Medicine 03/26/23 04/14/23 documented as of this encounter
--- OUTSIDE RECORDS SUMMARY | 2025-02-24 16:30 | XMS_ITS | Encounter Summary ---
Author Organization [employer] Address [address] [facility] [address] [place] [address] Care Team Providers Care Leather Case Finisher Name Role Phone Floresita Potter MD Primary Care Provide r Encounter Details Date Type Department Care Team (Late st Contact Info) Description 02/24/2025 Orders Only [facility] MEDICINE 230 [place], [place] [phone] Floresita Potter MD 230 [place], [place] [phone] Type 2 diabetes mellitus without complication, without long-term current use of insulin (HCC) (Primary Dx) Social History Tobacco Use Types Packs/Day Years [...] with others, in a hotel, in a prison, living outside on the street, on a [...] Description 03/18/2025 12:45 PM EST Office Visit [facility] ADULT DENTAL 230 [place] [address] Branden, Alejandra 230 [place] [address] 04/19/2025 2:30 PM EST Office Visit [facility] MEDICINE [address] [place] [phone] Floresita Potter MD 230 [place] [address] documented as of this encounter Visit Diagnoses Diagnosis Type 2 diabetes mellitus without complication, without long-term current use of insulin (HCC)- Primary documented in this encounter Additional Health Concerns Assessment Noted Time PHQ-9 Depression Total Score: 0 07/17/19 25 2:40 PM EDT documented as of this encounter Care Teams Leather Case Finisher Relationship Specialty Start Date End Date Floresita Potter MD [address] [place] [phone] PCP - General Family Medicine 04/09/18 documented as of this encounter
--- OUTSIDE RECORDS SUMMARY | 2025-02-24 16:30 | XMS_ITS | Encounter Summary ---
Author Organization [employer] [facility] Address [address] [place] [address] 7 [place] [address] Care Team Providers Care Interlocking Machine Operator Name Role Phone Floresita Potter MD Primary Care Provide r Cristo Rivas Unavailable Unavailable Encounter Details Date Type Department Care Team (Latest Contact Info) Description 01/26/2021 Abstract [facility] CONVERSIONS Dental, Provider, DDS Social History Tobacco [...] Description 03/18/2025 12:45 PM EST Office Visit [facility] ADULT DENTAL 230 [place] [address] Branden, Alejandra [address] [place] [address] 04/19/2025 2:30 PM EST Office Visit [facility] MEDICINE 230 [place] [address] Floresita Potter MD 230 [place] [address] documented as of this encounter Visit Diagnoses Not on filedocumented in this encounter Care Teams Interlocking Machine Operator Relationship Specialty Start Date End Date Floresita Potter MD 230 [place] [address] PCP - General Family Medicine 04/09/18 Cristo Rivas FNP [address] [place] [address] Nurse Practitioner Family Medicine 03/26/23 04/14/23 documented as of this encounter
--- OUTSIDE RECORDS SUMMARY | 2025-02-24 16:30 | XMS_ITS | Encounter Summary ---
Author Organization [employer] Address [address] [place] [address] 7 [place] [address] Care Team Providers Care Deputy Clerk Of Court Name Role Phone Floresita Potter MD Primary Care Provide r Reason for Visit * Reason Onset Date Comments Results 02/02/2025 Encounter Details Date Type Department Care Team ([facility] st Contact Info) Description 02/02/2025 Results Follow-Up [facility] MEDICINE [address] [place], [place] [phone] Floresita Potter MD [address] [place] [address] TSH W/Reflex to FT4 Social History Tobacco Use Types Packs/Day Years [...] with others, in a hotel, in a residential, living outside on the street, on a [...] encounter Miscellaneous Notes * Telephone Encounter - Mary Anne Vivas RN - 02/03/2025 9:29 AM EDT TC placed to pt., informed pt. Bloodwork results from yesterday 02/02/25 showed mildly elevated TSH.Pt. Confirms he has been taking levothyroxine 100mcg on an empty stomach, agrees to continue this dose and recheck bloodwork in 6 weeks. Will postpone message until 03/16/25 to call pt. To return to lab and place repeat order documented in this encounter Plan of Treatment Upcoming Encounters Date Type Department Care Team (Late st Contact Info) Description 03/18/2025 12:45 PM EST Office Visit [facility] ADULT DENTAL [address] [place], [place] [phone] Alejandra Otero [address] [place] [address] 04/19/2025 2:30 PM EST Office Visit [facility] MEDICINE [address] [place] [address] Floresita Potter MD [address] [place] [address] documented as of this encounter Visit Diagnoses Not on filedocumented in this encounter Additional Health Concerns Assessment Noted Time PHQ-9 Depression Total Score: 0 07/17/19 25 2:40 PM EDT documented as of this encounter Care Teams Deputy Clerk Of Court Relationship Specialty Start Date End Date Floresita Potter MD [address] [place] [address] PCP - General Family Medicine 04/09/18 documented as of this encounter
--- OUTSIDE RECORDS SUMMARY | 2025-02-24 16:30 | XMS_ITS | Encounter Summary ---
Author Organization [email or web address] Address [address] [place] [address] Street 7t [place] [address] Care Team Providers Care Drapery And Upholstery Estimator Name Role Phone Floresita Potter MD Primary Care Provide r Reason for Visit * Reason Comments Med Refill Encounter Details Date Type Department Care Team ([facility] st Contact Info) Description 02/08/2025 Refill [facility] MEDICINE [address] [place], [place] [phone] Floresita Potter MD [address] [place], [place] [phone] Class 3 severe obesity due to excess calories with serious comorbidity and body mass index (BMI) greater than or equal to 70 in adult (HCC) Social History Tobacco Use Types Packs/Day Years [...] Description 03/18/2025 12:45 PM EST Office Visit [facility] ADULT DENTAL [address] [place] [address] Alejandra Otero [address] [place] [address] 04/19/2025 2:30 PM EST Office Visit [facility] MEDICINE [address] [place] [address] Floresita Potter MD [address] [place] [phone] documented as of this encounter Visit Diagnoses Diagnosis Class 3 severe obesity due to excess calories with serious comorbidity and body mass index (BMI) greater than or equal to 70 in adult (HCC) documented in this encounter Additional Health Concerns Assessment Noted Time PHQ-9 Depression Total Score: 0 07/17/19 25 2:40 PM EDT documented as of this encounter Care Teams Drapery And Upholstery Estimator Relationship Specialty Start Date End Date Floresita Potter MD [address] [place] [phone] PCP - General Family Medicine 04/09/18 documented as of this encounter
--- OUTSIDE RECORDS SUMMARY | 2025-02-24 16:31 | XMS_ITS | Encounter Summary ---
Author Organization [employer] Address [address] [place] [address] Street 7t [place] [address] Care Team Providers Care Informatics Scientist Name Role Phone Floresita Potter MD Primary Care Provide r Reason for Visit * Reason Comments Med Refill Encounter Details Date Type Department Care Team ([facility] st Contact Info) Description 07/29/2024 Refill [facility] MEDICINE [address] [place], [place] [phone] Floresita Potter MD [address] [place], [place] [phone] Essential hypertension Social History Tobacco Use Types [...] Description 03/18/2025 12:45 PM EST Office Visit [facility] ADULT DENTAL [address] [place] [address] Branden, Alejandra [address] [place] [address] 04/19/2025 2:30 PM EST Office Visit [facility] MEDICINE [address] [place] [address] Floresita Potter MD [address] [place] [address] documented as of this encounter Visit Diagnoses Diagnosis Essential hypertension Unspecified essential hypertension documented in this encounter Additional Health Concerns Assessment Noted Time PHQ-9 Depression Total Score: 0 07/17/19 25 2:40 PM EDT documented as of this encounter Care Teams Informatics Scientist Relationship Specialty Start Date End Date Floresita Potter MD [address] [place] [address] PCP - General Family Medicine 04/09/18 documented as of this encounter
--- OUTSIDE RECORDS SUMMARY | 2025-02-24 16:31 | XMS_ITS | Encounter Summary ---
Author Organization [employer] Address [address] [facility] [facility] [address] [place] [address] Care Team Providers Care Halfway House Counselor Name Role Phone Floresita Potter MD Primary Care Provide r Reason for Visit * Reason Onset Date Comments Appointment Request 05/15/2023 Encounter Details Date Type Department Care Team ([facility] st Contact Info) Description 05/15/2023 Telephone [facility] MEDICINE [address] [place], [place] [phone] Floresita Potter MD [address] [place], [place] [phone] Appointment Request Social History Tobacco Use Types [...] Description 03/18/2025 12:45 PM EST Office Visit [facility] ADULT DENTAL [address] [place] [phone] Branden, Alejandra [address] [place] [address] 04/19/2025 2:30 PM EST Office Visit [facility] MEDICINE [address] [place] [address] Floresita Potter MD [address] [place] [address] documented as of this encounter Visit Diagnoses Not on filedocumented in this encounter Additional Health Concerns Assessment Noted Time PHQ-9 Depression Total Score: 14 023 10:06 AM EST documented as of this encounter Care Teams Halfway House Counselor Relationship Specialty Start Date End Date Floresita Potter MD [address] [place] [phone] PCP - General Family Medicine 04/09/18 documented as of this encounter
--- OUTSIDE RECORDS SUMMARY | 2025-02-24 16:31 | XMS_ITS | Encounter Summary ---
Author Organization [employer] Address [address] [facility] [address] 7t [place] [address] Care Team Providers Care Alteration Hand Name Role Phone Floresita Potter MD Primary Care Provide r Reason for Visit * Reason Comments Med Refill Encounter Details Date Type Department Care Team ([facility] st Contact Info) Description 10/19/2023 Refill [facility] MEDICINE [address] [place] [address] Cristo Rivas FNP Social History Tobacco Use [...] with others, in a hotel, in a [place] [facility], living outside on the street, on a [...] Description 03/18/2025 12:45 PM EST Office Visit [facility] ADULT DENTAL 230 [place] [address] Branden, Alejandra 230 [place] [address] 04/19/2025 2:30 PM EST Office Visit [facility] MEDICINE 230 [place] [address] Floresita Potter MD 230 [place] [address] documented as of this encounter Visit Diagnoses Not on filedocumented in this encounter Additional Health Concerns Assessment Noted Time PHQ-9 Depression Total Score: 14 023 10:06 AM EST documented as of this encounter Care Teams Alteration Hand Relationship Specialty Start Date End Date Floresita Potter MD [address] [place] [phone] PCP - General Family Medicine 04/09/18 documented as of this encounter
--- OUTSIDE RECORDS SUMMARY | 2025-02-24 16:31 | XMS_ITS | Encounter Summary ---
Author Organization [employer] Address [address] [facility] [address] 7[address] [place] [address] Care Team Providers Care Shelver Name Role Phone Floresita Potter MD Primary Care Provide r Encounter Details Date Type Department Care Team (Late st Contact Info) Description 07/22/2024 Orders Only [facility] MEDICINE 230 [place], [place] [phone] Floresita Potter MD 230 [place], [place] [phone] Social History Tobacco Use Types Packs/Day Years [...] Description 03/18/2025 12:45 PM EST Office Visit [facility] ADULT DENTAL [address] [place] [address] Branden, Alejandra [address] [place] [address] 04/19/2025 2:30 PM EST Office Visit [facility] MEDICINE [address] [place] [address] Floresita Potter MD [address] [place] [address] documented as of this encounter Visit Diagnoses Not on filedocumented in this encounter Additional Health Concerns Assessment Noted Time PHQ-9 Depression Total Score: 0 07/17/19 25 2:40 PM EDT documented as of this encounter Care Teams Shelver Relationship Specialty Start Date End Date Floresita Potter MD [address] [place] [phone] PCP - General Family Medicine 04/09/18 documented as of this encounter
--- OUTSIDE RECORDS SUMMARY | 2025-02-24 16:31 | XMS_ITS | Encounter Summary ---
Author Organization [employer] Address [address] [place] [address] Street 7 [place] [address] Care Team Providers Care Lubricating Engineer Name Role Phone Floresita Potter MD Primary Care Provide r Reason for Visit * Reason Onset Date Comments Nurse Triage 11/05/2023 Encounter Details Date Type Department Care Team ([facility] st Contact Info) Description 11/05/2023 Telephone [facility] MEDICINE [address] [place], [place] [phone] Floresita Potter MD [address] [place], [place] [phone] Nurse Triage Social History Tobacco Use Types [...] EDT Triage call returned to patient with Correlec Head Athletic Trainer [phone]. Patient reports one week of pain in [...] at time of call. Patient advised of [facility] hours and availability for today and tomorrow [...] accepted this outcome Please contact pt at [phone] documented in this encounter Plan of Treatment Upcoming Encounters Date Type Department Care Team (Late st Contact Info) Description 03/18/2025 12:45 PM EST Office Visit [facility] ADULT DENTAL [address] [place] [address] Branden, Alejandra [address] [place] [address] 04/19/2025 2:30 PM EST Office Visit [facility] MEDICINE [address] [place] [address] Floresita Potter MD [address] [place] [address] documented as of this encounter Visit Diagnoses Not on filedocumented in this encounter Additional Health Concerns Assessment Noted Time PHQ-9 Depression Total Score: 14 023 10:06 AM EST documented as of this encounter Care Teams Lubricating Engineer Relationship Specialty Start Date End Date Floresita Potter MD [address] [place], [place] [phone] PCP - General Family Medicine 04/09/18 documented as of this encounter
--- OUTSIDE RECORDS SUMMARY | 2025-02-24 16:31 | XMS_ITS | Encounter Summary ---
Author Organization [employer] Address [address] 7[address] [place] [address] Care Team Providers Care Medical Center Manager Name Role Phone Floresita Potter MD Primary Care Provide r Reason for Visit * Reason Onset Date Comments Referral 03/23/2024 Encounter Details Date Type Department Care Team ([facility] Contact Info) Description 03/23/2024 Telephone [facility] MEDICINE 230 [place], [place] [phone] Floresita Potetr MD 230 [place], [place] [phone] Referral Social History Tobacco Use Types Packs/Day [...] with others, in a hotel, in a custodial, living outside on the street, on a [...] pt leaving on vacation soon. Callback number [phone] documented in this encounter Plan of Treatment Upcoming Encounters Date Type Department Care Team (Late st Contact Info) Description 03/18/2025 12:45 PM EST Office Visit [facility] ADULT DENTAL [address] [place] [address] Woody Oteroaris [address] [place] [address] 04/19/2025 2:30 PM EST Office Visit [facility] MEDICINE [address] [place] [address] Floresita Potter MD [address] [place] [address] documented as of this encounter Visit Diagnoses Not on filedocumented in this encounter Additional Health Concerns Assessment Noted Time PHQ-9 Depression Total Score: 14 023 10:06 AM EST documented as of this encounter Care Teams Medical Center Manager Relationship Specialty Start Date End Date Floresita Potter MD [address] [place] [phone] PCP - General Family Medicine 04/09/18 documented as of this encounter
--- OUTSIDE RECORDS SUMMARY | 2025-02-24 16:31 | XMS_ITS | Clinical Summary ---
Author Organization [address] [facility] Address [address] [place] [address] Phone Care Team Providers Care Banking Specialist Name Role Phone Floresita Potter MD Primary Care Provide r Encounters Date Type Department Care Team Description 12/06/2024 2:15 PM EDT Consult Orthopedic Surgery [facility] [address] [facility] [address] [place] [address] Manny Lucas, DPM Tinea pedis of both feet (Primary Dx); Type 2 diabetes mellitus without complication, without long-term current use of insulin (CMS/[facility] V24, CMS/[facility] V28); Diabetic mononeuropathy simplex (CMS/[facility] V24, CMS/[facility] V28) from Last 3 Months Social History [...] Years) (1 of 2 - PCV) 2013 HPV Vaccines (1 - 3-dose SCDM series) 2021 Hepatitis B Vaccines (2 of 2 - [...] to complete this topic Insurance MEDICAID - [place] Care Teams Banking Specialist Relationship Specialty Start Date End Date Floresita Potter MD [address] [place] [phone] PCP - General Internal Medicine 08/17/24
--- OUTSIDE RECORDS SUMMARY | 2025-02-24 16:31 | XMS_ITS | Clinical Summary ---
Author Organization [employer] Address [address] [place] [address] Care Team Providers Care Mill Beam Fitter Name Role Phone Floresita Potter MD Primary Care Provide r Allergies No known active allergies Medications ammonium lactate (Lac-Hydrin) 12 % lotion APPLY TO HEELS OF FEET TWICE DAILY Active nystatin (Mycostatin) cream APPLY TO FEET (BETWEEN TOES) TWICE DAILY 022 Active triamcinolone (Kenalog) 0.1 % cream APPLY TO THE AFFECTED AREA(S) BETWEEN TOES TWICE DAILY 022 Active glucose blood (FREESTYLE LITE) test strip Use 1 test strip to check your blood sugar 2x day. 100 each 12 023 Active Blood Glucose Monitoring Suppl (FreeStyle Lite) device Inject 1 each under the skin 2 times daily. 1 each 023 Active Blood Pressure Monitor kitIndications: Primary hypertension Use to monitor blood pressure at home 1 kit 024 Active furosemide (Lasix) 20 MG tabletIndicatio ns:Edema of lower extremity Take 1 tablet (20 mg) by mouth Once per day. 10 tablet 024 Active predniSONE (Deltasone) 20 MG tablet 2 tabs po daily for 5 days 10 tablet 024 Active cholecalciferol (Vitamin D-3) 25 MCG tabletIndicatio ns:Vitamin D deficiency TAKE 1 TABLET BY MOUTH EVERYDAY AT NOON 90 tablet 1 025 Active albuterol 108 (90 Base) MCG/ACT inhalerIndicati ons:Mild persistent asthma with acute exacerbation Inhale 2 puffs every 4 (four) hours if needed for wheezing. 18 g 1 025 Active levothyroxine (Synthroid, Levoxyl) 100 MCG tablet TAKE 1 TABLET BY MOUTH EVERY MORNING 90 tablet 1 025 Active ARIPiprazole (Abilify) 5 MG tablet TAKE 1 TABLET BY MOUTH EVERYDAY AT NOON (WITH 20 MG) 90 tablet 025 Active lidocaine (Lidoderm) 5 % patch APPLY 1 PATCH TOPICALLY TO SKIN, LEAVE ON FOR 12 HOURS AND OFF FOR 12 HOURS DIRECTED 30 patch 1 025 Active ARIPiprazole (Abilify) 20 MG tablet TAKE 1 TABLET BY MOUTH EVERYDAY AT NOON 90 tablet 1 025 Active Ferrous Sulfate (iron) 325 (65 Fe) MG tabletIndicatio ns:Iron deficiency anemia, unspecified iron deficiency anemia type TAKE 1 TABLET BY MOUTH TWICE DAILY AT NOON AND IN THE EVENING 180 tablet 1 025 Active Jardiance 10 MGIndications:T ype 2 diabetes mellitus without complication, without long-term current use of insulin ([facility]) TAKE 1 TABLET BY MOUTH EVERYDAY AT NOON 30 tablet 11 025 Active Ascorbic Acid (vitamin C) 500 MG tabletIndicatio ns:Anemia, unspecified type TAKE 1 TABLET BY MOUTH TWICE DAILY AT NOON AND IN THE EVENING 180 tablet 1 025 Active losartan (Cozaar) 25 MG tabletIndicatio ns:Primary hypertension TAKE 1 TABLET BY MOUTH EVERYDAY AT NOON 90 tablet 025 Active hydroCHLOROthia zide (HYDRODiuril) 25 MG tabletIndicatio ns:Essential hypertension TAKE 1 TABLET BY MOUTH EVERYDAY AT NOON 90 tablet 025 Active Tirzepatide (Mounjaro) 2.5 MG/0.5ML solution auto-injectorIn dications:Type 2 diabetes mellitus without complication, without long-term current use of insulin ([facility]) Inject 2.5 mg under the skin 1 (one) time per week. 2 mL 2 025 Active Tirzepatide-Shadi ght Management (Zepbound) 5 MG/0.5ML solution auto-injectorIn dications:Class 3 severe obesity due to excess calories with serious comorbidity and body mass index (BMI) greater than or equal to 70 in adult (HCC) Inject 0.5 mL (5 mg) under the skin 1 (one) time per week. INJECT ONE PEN (=5 MG) SUBCUTANEOUSLY ONCE A WEEK 2 mL 025 2024 Discontinued Tirzepatide-Shadi ght Management (Zepbound) 7.5 MG/0.5ML solution auto-injectorIn dications:Class 3 severe obesity due to excess calories with serious comorbidity and body mass index (BMI) greater than or equal to 70 in adult ([facility]) Inject 0.5 mL (7.5 mg) under the skin 1 (one) time per week. 4 mL 025 2024 Discontinued Tirzepatide-Shadi ght Management (Zepbound) 10 MG/0.5ML solution auto-injectorIn dications:Class 3 severe obesity due to excess calories with serious comorbidity and body mass index (BMI) greater than or equal to 70 in adult ([facility]) Inject 0.5 mL (10 mg) under the skin 1 (one) time per week. 2 mL 025 2024 Discontinued Tirzepatide-Shadi ght Management (Zepbound) 12.5 MG/0.5ML solutionIndicat ions:Class 3 severe obesity due to excess calories with serious comorbidity and body mass index (BMI) greater than or equal to 70 in adult ([facility]) Inject 12.5 mg under the skin 1 (one) time per week. 2 mL 025 2024 Discontinued Active Problems Problem Noted Date Diagnosed Date [...] -current apt for 01/27/2024 at 2h[address] [place] [address] [id number] --not able to get earlier [...] currently out of his medications, and will package pick up medboxes and resume Abilify 20 mg plus [...] especially his mood. He is working with [employer] Supervisor and exploring options for medication-assisted weight loss [...] to psychiatry/prescriber Hypothyroidism 08/05/2022 Assessment & Plan (02/14/2025 11:27 AM EDT): Extensive counseling done regarding how to take his medication levothyroxine I put the lab in, instructed to come back in 6 weeks and repeat it Assessment & Plan (01/14/2025 2:52 PM EDT): [...] 70 in adult 05/13/2014 Assessment & Plan (02/14/2025 11:26 AM EDT): Extensive counseling about healthy diet and exercise done today I will go up on his Zepbound to 12.5 mg weekly Plan is to follow-up with him again in person in about 4 to 6 weeks Assessment & Plan (01/14/2025 2:52 PM EDT): Extensive counseling about healthy diet and exercise done today I will refer to case management associate Patient is waiting for appointment for bariatric [...] on next appointment, patient will go to [place] for 2 months, I also advised: - [...] Encounters Date Type Department Care Team Description 02/24/2025 Orders Only [facility] [place] [address] Floresita Potter MD Type 2 diabetes mellitus without complication, without long-term current use of insulin ([facility]) (Primary Dx) 02/24/2025 Telephone [facility] [address] Floresita Potter MD Medication Question 02/23/2025 Telephone [place] [address] Floresita Potter MD Prior Authorization ( PA: Anayaound denial.) 02/16/2025 Telephone [facility] [place] [address] Floresita Potter MD Prior Authorization ( PA: Zetaviaound) 02/14/2025 11:00 AM EDT Telemedicine [place] [address] Floresita Potter MD Class 3 severe obesity due to excess calories with serious comorbidity and body mass index (BMI) greater than or equal to 70 in adult (HCC) (Primary Dx); Acquired hypothyroidism 02/14/2025 Travel 02/13/2025 Travel 02/08/2025 Refill [facility] [place] [address] Floresita Potter MD Class 3 severe obesity due to excess calories with serious comorbidity and body mass index (BMI) greater than or equal to 70 in adult ([facility]) 02/02/2025 Results Follow-Up [facility] [place] [address] Floresita Potter MD TSH W/Reflex to FT4 02/02/2025 Orders Only [address] [place] [address] Floresita Potter MD Class 3 severe obesity due to excess calories with serious comorbidity and body mass index (BMI) greater than or equal to 70 in adult (HCC) (Primary Dx) 02/02/2025 Orders Only [address] [place] [address] Floresita Potter MD 01/26/2025 Orders Only [address] [place] [address] Floresita Potter MD Type 2 diabetes mellitus without complication, without long-term current use of insulin (CMS/[facility]) (Primary Dx); Class 3 severe obesity due to excess calories with serious comorbidity and body mass index (BMI) greater than or equal to 70 in adult 01/25/[address] [place] [address] Floresita Potter MD Referral 01/18/[address] [place] [address] Floresita Potter MD Lab Orders 01/14/2025 2:00 PM EDT Office Visit [address] [address] Floresita Potter MD Primary hypertension (Primary Dx); Type 2 diabetes mellitus without complication, without long-term current use of insulin (CMS/[facility]); Class 3 severe obesity due to excess calories with serious comorbidity and body mass index (BMI) greater than or equal to 70 in adult; Acquired hypothyroidism; Encounter for preventive care 01/14/2025 Orders Only [address] [place] [address] Floresita Potter MD Class 3 severe obesity due to excess calories with serious comorbidity and body mass index (BMI) greater than or equal to 70 in adult (Primary Dx); Type 2 diabetes mellitus without complication, without long-term current use of insulin (CMS/HCC) 01/14/2025 Travel 01/13/[address] [address] Floresita Potter MD chart prep 01/12/[address] [address] Floresita Potter MD Losartan medication 01/10/2025 Results Follow-Up [facility] [address] [address] Jyoti Manzo, [place]OG[place] XR Shoulder 2+ Views Right 01/07/2025 Travel 01/05/2025 Patient Outreach [address] [address] Floresita Potter MD Pre-visit Planning (SDOH screening completed on 07/16/2024) 12/23/2024 1:00 PM EDT Office Visit [address] [phone] Floresita Potter MD Sleep apnea with use of continuous positive airway pressure (CPAP) (Primary Dx); Type 2 diabetes mellitus without complication, without long-term current use of insulin ([facility]); Class 3 severe obesity due to excess calories with serious comorbidity and body mass index (BMI) greater than or equal to 70 in adult; Primary hypertension; Dietary counseling; Exercise counseling 12/23/2024 Travel 12/21/2024 Telephone [facility] [address] [place], [place] [phone] Floresita Potter MD Chart Prep 12/20/2024 2:00 PM EDT Office Visit [facility] [address] [address] Josefina Sanchez, SHIR[place] Acute pain of right shoulder (Primary Dx) 12/20/2024 Travel 12/16/2024 Patient Outreach [address] [address] Floresita Potter MD Pre-visit Planning (SDOH screening completed on 07/16/24 ) 12/15/[address] [address] Floresita Potter MD Primary hypertension; Essential hypertension 12/13/2024 Telephone [facility] [address] [place] [address] Mary Anne Vivas RN Lab Orders 12/13/2024 Refill [facility] [address] [place] [address] Floresita Potter MD Iron deficiency anemia, unspecified iron deficiency anemia type; Type 2 diabetes mellitus without complication, without long-term current use of insulin ([facility]); Anemia, unspecified type 12/09/2024 Telephone [facility] [address] [place] [address] Delia Castro OD from Last 3 Months Immunizations Immunization Administration Dates Next Due HepB-CpG 11/08/2022 Influenza injectable quadriv alent IIV4 with preservative 02/22/2016,02/03/2015 Influenza injectable quadriv alent preservative free 06/13/2023,04/12/2020,01/28/2019,2017 Influenza, IIV3, injectable 04/07/2014 Influenza, Split (incl. vaishnavi fied surface antigen) 03/30/2013 Influenza, seasonal, injecta [...] with others, in a hotel, in a intermediate, living outside on the street, on a [...] Description 03/18/2025 12:45 PM EST Office Visit [facility] [address] [place], [place] [phone] Woody Oteroaris [address] [place] [address] 04/19/2025 2:30 PM EST Office Visit [facility] [address] [place] [address] Floresita Potter MD [address] [place], [place] [phone] Health Maintenance Due Date Last Done Comments [...] , 06/13/2023, 04/12/2020, Additional history exists Diabetes: Hemoglobin A1C 06/25/2025 08/2 025, 09/20/2024, 07/16/2024, Additional history exists Alcohol/Substance Use Screening 07/16/2025 07/16/2024 Depression Screening 07/16/2025 07/16/2024, 07/17/19 SDOH Screening 07/16/2025 07/16/2024 Diabetes: Urine Protein Screening 07/30/2025 07/30/2024, 06/20/2023 Lipid Panel 07/30/2025 07/30/2024, 0801/2024, 06/20/2023, Additional history exists Disability Screening 01/07/2026 [...] Procedure Name Priority Date/Time Associated Diagnosis Comments T-SPOT(R).TB Routine 02/02/2025 10:54 AM EDT T4, FREE Routine 02/02/2025 10:54 AM EDT TSH W/REFLEX TO FT4 Routine 02/02/2025 1 0:54 AM EDT Acquired hypothyroidism POCT GLYCATED HEMOGLOBIN, TOTAL Routine 12/23/2024 1:21 PM EDT Type 2 diabetes mellitus without complication, without long-term current use of insulin ([facility]) POCT GLUCOSE Routine 12/23/2024 1:20 PM EDT [...] Recently Relevant to Health Maintenance Results * T-SPOT??.TB (02/02/2025 10:54 AM EDT) Only the most recent of2 resultswithin the time period is included. T Spot TB Negative Negative [facility] Comment:A negative test resu lt does not exclude the possibilityof exposure to or infection with Mycobacteriumtuberculosis (M. tuberculosis). Patients with recentexposure to TB infected individuals exhibiting anegative T-SPOT.TB result should be considered forretesting within 6 weeks or if other relevant clinicalsymptoms indicate. Results from T-SPOT.TB testing mustbe used in conjunction with each individual'sepidemiological history, current medical status,and results of other diagnostic evaluations.The T-SPOT.TB test is qualitative and results arereported as positive, borderline, or negative, giventhat the test controls perform as expected. In linewith the Centers for Disease Control and Prevention's2010 recommendation to report quantitative measurementsalongside the qualitative result, the laboratoryprovides spot counts for informational purposes only.The T-SPOT.TB test should not be interpreted as aquantitative test. TS PANEL A 0 [facility] TS PANEL B 0 [facility] Negative Control Passed [facility] Positive Control Passed [facility] Comment:For additional infor camille, please refer [email or web address].[email or web address]/faq/RWW758(This link is being provided for informational/educational purposes only.)THIS TEST WAS PERFORMED AT:[id number] [place] [address]DWYIDMIDEANNE COLON MD,PHD 02/02/2025 10:5 4 AM EDT 02/02/2025 1:11 PM EDT us Floresita Ferrer MD LAB BLOOD ORDERABLES Final Result [facility] [address] [place] [phone] * (ABNORMAL) TSH W/Reflex to FT4 (02/02/2025 10:54 AM EDT) TSH reflex Free T4 5.93(H) 0.32 - 4.0 uIU/mL [facility] Blood Venous blood specimen / Unknown 02/02/2025 10:54 AM EDT 02/02/2025 1:11 PM EDT Floresita Ferrer MD LAB BLOOD ORDERABLES Final Result [facility] [address] [place] [phone] * T4, Free (02/02/2025 10:54 AM EDT) Free T4 (Free Thyroxine) 1.11 0.71 - 1.85 ng/dL [facility] 02/02/2025 10:5 4 AM EDT 02/02/2025 1:11 PM EDT Floresita Ferrer MD LAB BLOOD ORDERABLES Final Result [facility] [address] [place] [phone] * (ABNORMAL) POCT HGB A1C (12/23/2024 1:21 PM EDT) Pathologist [facility] Hemoglobin A1C 6.1(A) 4.0 - 5.7 % QC Media Lot # [id number] Lot# Expiration Date Blood 12/23/2024 1:21 PM EDT Floresita Ferrer MD POINT OF CARE TEST EN TER/EDIT ORDERABLES Final Result * POCT Glucose (12/23/2024 1:20 PM EDT) Pathologist [facility] Glucose Blood, POC 120 60 - 200 mg/dL QC Media Lot # [id number] Lot# Expiration Date [id number] Blood Capillary blood specimen / Unknown 12/23/2024 1:20 PM EDT Floresita Ferrer MD POINT OF CARE TEST EN TER/EDIT ORDERABLES Final Result * XR Shoulder 2+ Views Right (12/20/2024 2:28 PM EDT) Anatomical Region Laterality Modality Upper Extremities, Shoulder Right Radi ographic Imaging 12/20/2024 2:28 PM EDT Narrative 12/20/2024 3:48 PM EDT [address] [address] XRay Report Signed Patient: Evin Abrams MR#: [id number] : 1995 Acct:[id number] Age/Sex: 29 / M ADM Date: 12/20/24 Loc: HO.HHCX Attending Dr: Josefina Sanchez SIGNAL OPERATOR LINGUIST Ordering Physician: Josefina Sanchez SIGNAL OPERATOR LINGUIST Date of Service: 12/20/24 Procedure(s): XR shoulder RT min 2V Accession Number(s): [id number] cc: Josefina Sanchez SIGNAL OPERATOR LINGUIST EXAMINATION: XR SHOULDER, RIGHT CLINICAL INFORMATION: PAIN [...] by Brady Méndez MD in OV> 12/20/24 2426 DD/ 1428 TD/TT: 12/20/24 1450 Slug Press Operator: Procedure Note Donotuseinterpreter, Image - 12/20/2024 [facility] [address] [place] [address] XRay Report Signed Patient: Evin Abrams MR#: [id number] : 1995Acct:[id number] Age/Sex: 29 / MADM Date: 12/20/24 Loc: HO.HHCX Attending Dr: Josefina Sanchez SIGNAL OPERATOR LINGUIST Ordering Physician: Josefina Sanchez NP Date of Service: 12/20/24 Procedure(s): XR shoulder RT min 2V Accession Number(s): [id number] cc: Josefina Sanchez SIGNAL OPERATOR LINGUIST EXAMINATION: XR SHOULDER, RIGHT CLINICAL INFORMATION: PAIN [...] 12/20/24 1545 DD/ 1428 TD/TT: 12/20/24 1450 Slug Press Operator: us Josefina Sanchez SIGNAL OPERATOR LINGUIST IMG XR PROCEDURES Final Result * Hepatitis B Surface Antibody, Qualitative (12/09/2024 1:13 PM EDT) ~Hepatitis B Surface Antibody REACTIVE Nonreactive [facility] Comment:REACTIVE: > 11.99 mI U/mL Blood Venous blood specimen / Unknown 12/09/2024 1:13 PM EDT 12/09/2024 4:10 PM EDT Floresita Ferrer MD LAB BLOOD ORDERABLES Final Result Performing Organization Address [facility]/ZIP Co de Phone Number [facility] [address] [place] [phone] * (ABNORMAL) Albumin, Random Urine W/Creatinine (07/30/2024 10:48 AM EDT) Creatinine, Urine 188.84 mg/dL [facility] Microalbumin Urine 122.0 mg/L H [facility] Microalbum Creatinine Ratio Ur 64.6(H) <30 ug/mg cr [facility] Comment:Albumin/Creatinine R atio Reference Ranges: Normal: < 30 ug/mg creatinine Microalbuminuria: 30 - 300 ug/mg creatinineClinical Albuminuria: > 300 ug/mg creatinine Urine (Urine, Random) 07/30/2024 10:48 AM EDT 07/30/2024 1:05 PM EDT Floresita Ferrer MD LAB URINE ORDERABLES Final Result Performing Organization Address [facility] Phone Number [facility] [address] [place] [phone] * Hepatitis C Antibody with Reflex to HCV, RNA, Quantitative, Real-Time PCR (07/30/2024 10:45 AM EDT) Hepatitis C Antibody Nonreactive Nonreactive [facility] Comment:Antibodies to HCV no t detected; does not exclude early acuteHCV infection. Blood Venous blood specimen / Unknown 07/30/2024 10:45 AM EDT 07/30/2024 1:46 PM EDT Floresita Ferrer MD LAB BLOOD ORDERABLES Final Result Performing Organization Address [facility]/ZIP Co de Phone Number [facility] [address] [place] [phone] * HIV-1/2 Antigen and Antibodies, Fourth Generation, with Reflexes (07/30/2024 10:45 AM EDT) HIV AB/AG Nonreactive Nonreactive [facility] Comment:HIV-1 p24 Ag and/or HIV-1/HIV-2 Ab not detected.A test result that is nonreactive does not exclude thepossibility of exposure to or infection with HIV-1 and/orHIV-2. Nonreactive results in this assay for individualswith prior exposure to HIV-1 and/or HIV-2 may be due toantigen and antibody levels that are below the limit ofdetection of this assay.The FINXI HIV Ag/Ab Combo assay result andsupplemental assay results should be interpreted inconjunction with the patient's clinical presentation,history and other laboratory results. If the results areinconsistent with clinical evidence, additional testing issuggested to confirm the result. Blood Venous blood specimen / Unknown 07/30/2024 10:45 AM EDT 07/30/2024 1:46 PM EDT us Floresita Ferrer MD LAB BLOOD ORDERABLES Final Result [facility] [address] [place] [phone] * (ABNORMAL) Lipid Panel, Standard (07/30/2024 10:45 AM EDT) Triglycerides 77 <150 mg/dL [facility] Comment:Desirable Triglyceri de: less than 150 mg/dLBorderline High Triglyceride 150-199 mg/dLHigh Triglyceride: 200-499 mg/dLVery High Triglyceride: greater than or equal to 5OO mg/dL Cholesterol 169 <200 mg/dL [facility] Comment:Desirable Cholestero l: less than 200 mg/dLBorderline High Cholesterol: 200-239 mg/dLHigh Cholesterol: greater than 239 mg/dL LDL Cholesterol Calculated 109(H) <100 mg/dL [facility] Comment:Desirable LDL: less than 100 mg/dLNear Optimal/Above Optimal LDL: 110- 129 mg/dLBorderline High LDL: 130-159 mg/dLHigh LDL: 160-189 mg/dLVery High LDL: greater than or equal to 190 mg/dL HDL Cholesterol 45 >40 mg/dL [facility] Comment:Desirable HDL: great er than 40 mg/dL Note: This HDL assay may give artificially low results in patients with liver disease. Blood Venous blood specimen / Unknown 07/30/2024 10:45 AM EDT 07/30/2024 1:46 PM EDT us Floresita Ferrer MD LAB BLOOD ORDERABLES Final Result [facility] [address] [place] [phone] from Last 3 Months or Most Recently Relevant to Health Maintenance Insurance [facility] C3 [facility] [place] [address] [place] [address] [place] [address] Care Teams Mill Beam Fitter Relationship Specialty Start Date End Date Floresita Potter MD [address] [place] [phone] PCP - General Family Medicine 04/09/18
[2025-03-03 19:48] VITALS: BMI 70.7
== END 2025-02-24 14:12 | disposition home or self-care (01) ==
LOC: HO.ENCR 13:08
PROVIDERS: PCP Internal Medicine; Visit Provider Dietitian, Registered
DX: E11.9 Type 2 diabetes mellitus without complications (principal)

== ENCOUNTER → 2025-02-24 13:08 | Outpatient (BNVA) | payer MEDICAID, SELFPAY | PROVIDERS: PCP Internal Medicine; Visit Provider Dietitian, Registered | DX: E11.9 Type 2 diabetes mellitus without complications (principal) | CPT/HCPCS: 97802 ==

== ENCOUNTER 2025-04-25 08:06 | Outpatient (AMB) | payer MEDICAID, SELFPAY ==
--- OUTSIDE RECORDS SUMMARY | 2025-04-06 08:17 | XMS_ITS | Encounter Summary ---
Author Organization [employer] Address [address] [place] [address] [address] [place] [address] Care Team Providers Care National Investigative Producer Name Role Phone Floresita Potter MD Primary Care Provide r Reason for Visit * Reason Onset Date Comments Nurse Triage 11/05/2023 Encounter Details Date Type Department Care Team ([facility] st Contact Info) Description 11/05/2023 Telephone [facility] [address] [place], [place] [phone] Floresita Potter MD [address] [place], [place] [phone] Nurse Triage Social History Tobacco Use Types [...] with others, in a hotel, in a mcc, living outside on the street, on a [...] EDT Triage call returned to patient with [employer] Teacher [id number]. Patient reports one week of pain in [...] at time of call. Patient advised of [facility] hours and availability for today and tomorrow [...] accepted this outcome Please contact pt at [phone] documented in this encounter Plan of Treatment Upcoming Encounters Date Type Department Care Team (Late st Contact Info) Description 04/19/2025 2:30 PM EST Office Visit [facility] [address] [place] [address] Floresita Potter MD [address] [place] [address] documented as of this encounter Visit Diagnoses Not on filedocumented in this encounter Additional Health Concerns Assessment Noted Time PHQ-9 Depression Total Score: 14 023 10:06 AM EST documented as of this encounter Care Teams National Investigative Producer Relationship Specialty Start Date End Date Floresita Potter MD [address] [place] [phone] PCP - General Family Medicine 04/09/18 documented as of this encounter
--- OUTSIDE RECORDS SUMMARY | 2025-04-06 08:17 | XMS_ITS | Encounter Summary ---
Author Organization [employer] Address [address] [place] [address] Care Team Providers Care Ornament Setter Name Role Phone Floresita Potter MD Primary Care Provide r Reason for Visit * Reason Comments Med Refill Encounter Details Date Type Department Care Team ([facility] st Contact Info) Description 03/17/[address] [facility] MEDICINE [address] [place], [place] [phone] Floresita Potter MD [address] [place], [place] [phone] Essential hypertension Social History Tobacco Use Types [...] Description 04/19/2025 2:30 PM EST Office Visit [facility] MEDICINE [address] [place] [address] Floresita Potter MD [address] [place] [address] documented as of this encounter Goals Goal Patient Goal Type Associated Problems Recent Progress Patient-Stated? Author Help patients manage their type 2 diabetes Care Plan Help patients manage their type 2 diabetes No Mary Anne Vivas RN Weekly blood pressure task Care Plan Weekly blood pressure task No Mary Anne Vivas RN Help patients manage their type 2 diabetes Care Plan Help patients manage their type 2 diabetes No Mary Anne Vivas RN Patient has chronic kidney disease Care Plan Patient has chronic kidney disease No Mary Anne Vivas RN Weekly blood pressure task Care Plan Weekly blood pressure task No Mary Anne Vivas RN Patient has chronic kidney disease Care Plan Patient has chronic kidney disease No Mary Anne Vivas RN Weekly blood pressure task Care Plan Weekly blood pressure task No Arlette Jernigan PharmD Weekly blood pressure task Care Plan Weekly blood pressure task No Arlette Jernigan PharmD Patient has chronic kidney disease Care Plan Patient has chronic kidney disease No Arlette Jernigan PharmD Patient has chronic kidney disease Care Plan Patient has chronic kidney disease No Arlette Jernigan PharmD documented as of this encounter Visit Diagnoses Diagnosis Essential hypertension Unspecified essential hypertension documented in this encounter Additional Health Concerns Active Problems Noted Date Diagnosed Date Help patients manage their type 2 diabetes 03/16 Weekly blood pressure task 03/16/2025 Help patients manage their type 2 diabetes 03/16 Patient has chronic kidney disease 03/16/2025 Weekly blood pressure task 03/16/2025 Patient has chronic kidney disease 03/16/2025 Weekly blood pressure task 03/17/2025 Weekly blood pressure task 03/17/2025 Patient has chronic kidney disease 03/17/2025 Patient has chronic kidney disease 03/17/2025 Assessment Noted Time PHQ-9 Depression Total Score: 0 07/17/19 25 2:40 PM EDT documented as of this encounter Care Teams Ornament Setter Relationship Specialty Start Date End Date Floresita Potter MD [address] [place] [phone] PCP - General Family Medicine 04/09/18 documented as of this encounter
--- OUTSIDE RECORDS SUMMARY | 2025-04-06 08:17 | XMS_ITS | Clinical Summary ---
Author Organization [facility] Address [address] [place] [phone] Phone Care Team Providers Care Short Goods Drier Name Role Phone Floresita Potter MD Primary Care Provide r Social History Tobacco Use Types Packs/Day Years [...] to complete this topic Insurance MEDICAID - [place] Care Teams Short Goods Drier Relationship Specialty Start Date End Date Floresita Potter MD [address] [place] [phone] PCP - General Internal Medicine 08/17/24
--- OUTSIDE RECORDS SUMMARY | 2025-04-06 08:17 | XMS_ITS | Encounter Summary ---
Author Organization [facility] Address [address] [place] [address] 7 [place] [address] Care Team Providers Care Miniature Set Designer Name Role Phone Floresita Potter MD Primary Care Provide r Cristo Rivas Unavailable Unavailable Encounter Details Date Type Department Care Team (Late st Contact Info) Description 04/16/2022 Abstract [facility] MEDICINE [address] [place] [phone] Chris Chen RN Social History Tobacco Use [...] Description 04/19/2025 2:30 PM EST Office Visit [facility] MEDICINE [address] [place] [phone] Floresita Potter MD [address] [place] [phone] documented as of this encounter Visit Diagnoses Not on filedocumented in this encounter Care Teams Miniature Set Designer Relationship Specialty Start Date End Date Floresita Potter MD [address] [place] [phone] PCP - General Family Medicine 04/09/18 Cristo Rivas FNP [address] [place] [phone] Nurse Practitioner Family Medicine 03/26/23 04/14/23 documented as of this encounter
--- OUTSIDE RECORDS SUMMARY | 2025-04-06 08:17 | XMS_ITS | Encounter Summary ---
Author Organization [facility] Address [address] [place] [address] Street 7t [place] [address] Care Team Providers Care Stunt Driver Name Role Phone Floresita Potter MD Primary Care Provide r Reason for Visit * Reason Comments Med Refill Encounter Details Date Type Department Care Team ([facility] st Contact Info) Description 07/29/2024 Refill [facility] MEDICINE [address] [place], [place] [phone] Floresita Potter MD [address] [place], [place] [phone] Essential hypertension Social History Tobacco Use Types [...] with others, in a hotel, in a [facility], living outside on the street, on a [...] Description 04/19/2025 2:30 PM EST Office Visit [facility] MEDICINE [address] [place] [phone] Floresita Potter MD [address] [place] [address] documented as of this encounter Visit Diagnoses Diagnosis Essential hypertension Unspecified essential hypertension documented in this encounter Additional Health Concerns Assessment Noted Time PHQ-9 Depression Total Score: 0 07/17/19 25 2:40 PM EDT documented as of this encounter Care Teams Stunt Driver Relationship Specialty Start Date End Date Floresita Potter MD [address] [place] [address] [phone] PCP - General Family Medicine 04/09/18 documented as of this encounter
--- OUTSIDE RECORDS SUMMARY | 2025-04-06 08:17 | XMS_ITS | Encounter Summary ---
Author Organization [employer] Address [address] [place] [address] Care Team Providers Care Supervisor Sawing And Assembly Name Role Phone Floresita Potter MD Primary Care Provide r Reason for Visit * Reason Onset Date Comments Referral 03/23/2024 Encounter Details Date Type Department Care Team ([facility] Contact Info) Description 03/23/2024 Telephone [facility] MEDICINE [address] [place], [place] [phone] Floresita Potter MD [address] [place], [place] [phone] Referral Social History Tobacco Use Types Packs/Day [...] with others, in a hotel, in a assisted, living outside on the street, on a [...] pt leaving on vacation soon. Callback number [phone] documented in this encounter Plan of Treatment Upcoming Encounters Date Type Department Care Team (Late st Contact Info) Description 04/19/2025 2:30 PM EST Office Visit [facility] MEDICINE [address] [place] [address] Floresita Potter MD [address] [place] [address] documented as of this encounter Visit Diagnoses Not on filedocumented in this encounter Additional Health Concerns Assessment Noted Time PHQ-9 Depression Total Score: 14 023 10:06 AM EST documented as of this encounter Care Teams Supervisor Sawing And Assembly Relationship Specialty Start Date End Date Floresita Potter MD [address] [place] [phone] PCP - General Family Medicine 04/09/18 documented as of this encounter
--- OUTSIDE RECORDS SUMMARY | 2025-04-06 08:17 | XMS_ITS | Encounter Summary ---
Author Organization [employer] Address [address] [place] [address] Care Team Providers Care Grinder Set Up Operator Surface Name Role Phone Floresita Potter MD Primary Care Provide r Encounter Details Date Type Department Care Team (Late st Contact Info) Description 07/22/2024 Orders Only [facility] MEDICINE [address] [place], [place] [phone] Floresita Potter MD [address] [place], [place] [phone] Social History Tobacco Use Types Packs/Day Years [...] 2:30 PM EST Office Visit [facility] MEDICINE [address] [place] [address] Floresita Potter MD [address] [place] [address] documented as of this encounter Visit Diagnoses Not on filedocumented in this encounter Additional Health Concerns Assessment Noted Time PHQ-9 Depression Total Score: 0 07/17/19 25 2:40 PM EDT documented as of this encounter Care Teams Grinder Set Up Operator Surface Relationship Specialty Start Date End Date Floresita Potter MD [address] [place] [phone] PCP - General Family Medicine 04/09/18 documented as of this encounter
--- OUTSIDE RECORDS SUMMARY | 2025-04-06 08:17 | XMS_ITS | Encounter Summary ---
Author Organization [employer] [facility] Address [address] [place] [address] 7 [place] [address] Care Team Providers Care Cutting Machine Operator Helper Name Role Phone Floresita Potter MD Primary Care Provide r Cristo Rivas Unavailable Unavailable Encounter Details Date Type Department Care Team (Latest Contact Info) Description 01/26/[address] [facility] CONVERSIONS Dental, Provider, DDS Social History [...] Description 04/19/2025 2:30 PM EST Office [address] [facility] MEDICINE [address] [place] [address] Floresita Potter MD [address] [place] [address] documented as of this encounter Visit Diagnoses Not on filedocumented in this encounter Care Teams Cutting Machine Operator Helper Relationship Specialty Start Date End Date Floresita Potter MD [address] [place] [address] [phone] PCP - General Family Medicine 04/09/18 Cristo Rivas FNP [address] [place] [phone] Nurse Practitioner Family Medicine 03/26/23 04/14/23 documented as of this encounter
--- OUTSIDE RECORDS SUMMARY | 2025-04-06 08:17 | XMS_ITS | Clinical Summary ---
Author Organization [employer] Address [address] 7[address] [place] [address] Care Team Providers Care Rn Advanced Name Role Phone Floresita Potter MD Primary [...] each 10/23/19 23 Active Blood Pressure Monitor kitIndications: Primary hypertension Use to monitor blood pressure at home 1 kit 06/16/19 24 Active furosemide (Lasix) 20 MG tabletIndicatio ns:Edema of lower extremity Take 1 tablet (20 mg) by mouth Once per day. 10 tablet 12/22/19 24 Active predniSONE (Deltasone) 20 MG tablet 2 tabs po daily for 5 days 10 tablet 01/07/20 24 Active albuterol 108 (90 Base) MCG/ACT inhalerIndicati ons:Mild persistent asthma with acute exacerbation Inhale 2 puffs every 4 (four) hours if needed for wheezing. 18 g 1 09/21/19 25 Active levothyroxine (Synthroid, Levoxyl) 100 MCG tablet TAKE 1 TABLET BY MOUTH EVERY MORNING 90 tablet 1 5 12:09 PM EST 09/22/19 25 Active ARIPiprazole (Abilify) 5 MG tablet TAKE 1 TABLET BY MOUTH EVERYDAY AT NOON (WITH 20 MG) 90 tablet 09/23/19 25 Active lidocaine (Lidoderm) 5 % patch APPLY 1 PATCH TOPICALLY TO SKIN, LEAVE ON FOR 12 HOURS AND OFF FOR 12 HOURS DIRECTED 30 patch 1 5 12:09 PM EST 10/16/19 25 Active ARIPiprazole (Abilify) 20 MG tablet TAKE 1 TABLET BY MOUTH EVERYDAY AT NOON 90 tablet 1 12/15/19 25 Active Ferrous Sulfate (iron) 325 (65 Fe) MG tabletIndicatio ns:Iron deficiency anemia, unspecified iron deficiency anemia type TAKE 1 TABLET BY MOUTH TWICE DAILY AT NOON AND IN THE EVENING 180 tablet 1 5 12:09 PM EST 12/15/19 25 Active Jardiance 10 MGIndications:T ype 2 diabetes mellitus without complication, without long-term current use of insulin (HCC) TAKE 1 TABLET BY MOUTH EVERYDAY AT NOON 30 tablet 11 5 12:09 PM EST 12/15/19 25 Active Ascorbic Acid (vitamin C) 500 MG tabletIndicatio ns:Anemia, unspecified type TAKE 1 TABLET BY MOUTH TWICE DAILY AT NOON AND IN THE EVENING 180 tablet 1 12/15/19 25 Active losartan (Cozaar) 25 MG tabletIndicatio ns:Primary hypertension TAKE 1 TABLET BY MOUTH EVERYDAY AT NOON 90 tablet 12/17/19 25 Active Tirzepatide (Mounjaro) 2.5 MG/0.5ML solution auto-injectorIn dications:Type 2 diabetes mellitus without complication, without long-term current use of insulin (HCC) Inject 2.5 mg under the skin 1 (one) time per week. 2 mL 2 5 12:09 PM EST 02/25/20 25 Active cholecalciferol (Vitamin D-3) 25 MCG tabletIndicatio ns:Vitamin D deficiency TAKE 1 TABLET BY MOUTH EVERYDAY AT NOON 90 tablet 1 5 12:09 PM EST 03/08/20 25 Active hydroCHLOROthia zide (HYDRODiuril) 25 MG tabletIndicatio ns:Essential hypertension Take 1 tablet (25 mg) by mouth Once per day. 90 tablet 5 12:09 PM EST 03/17/20 25 Active cholecalciferol (Vitamin D-3) 25 MCG tabletIndicatio ns:Vitamin D deficiency TAKE 1 TABLET BY MOUTH EVERYDAY AT NOON 90 tablet 1 07/08/19 25 025 Discontinued hydroCHLOROthia zide (HYDRODiuril) 25 MG tabletIndicatio ns:Essential hypertension TAKE 1 TABLET BY MOUTH EVERYDAY AT NOON 90 tablet 12/17/19 25 025 Discontinued(Re order (will not trigger notification to Pharmacy)) Active Problems Problem Noted Date Diagnosed Date [...] -current apt for 01/27/2024 at 2h[address] [place] [address] [id number] --not able to get earlier [...] currently out of his medications, and will machine operator picker medboxes and resume Abilify 20 mg plus [...] especially his mood. He is working with [employer] and exploring options for medication-assisted weight loss [...] exercise done today I will refer to hands hanger Patient is waiting for appointment for bariatric [...] on next appointment, patient will go to [place] for 2 months, I also advised: - [...] Encounters Date Type Department Care Team Description 03/17/2025 Refill [facility] MED[facility] [address] [place] [address] Floresita Potter MD Essential hypertension 03/17/2025 Refill [facility] MED[facility]INE [address] [place] [address] Floresita Potter MD Essential hypertension 03/08/2025 Refill [facility] [place] [address] Floresita Potter MD Vitamin D deficiency 02/24/2025 Orders Only [facility] [place] [address] Floresita Potter MD Type 2 diabetes mellitus without complication, without long-term current use of insulin (HCC) (Primary Dx) 02/24/2025 Telephone [facility] [place] [address] Floresita Potter MD Medication Question 02/23/2025 Telephone [facility] [place] [address] Floresita Potter MD Prior Authorization ( PA: [employer] denial.) 02/16/2025 Telephone [facility] [place] [address] Floresita Potter MD Prior Authorization ( PA: [employer]) 02/14/2025 11:00 AM EDT Telemedicine [facility] [place] [address] Floresita Potter MD Class 3 severe obesity due to excess calories with serious comorbidity and body mass index (BMI) greater than or equal to 70 in adult (HCC) (Primary Dx); Acquired hypothyroidism 02/14/2025 Travel 02/13/2025 Travel 02/08/2025 Refill [facility] [place] [address] Floresita Potter MD Class 3 severe obesity due to excess calories with serious comorbidity and body mass index (BMI) greater than or equal to 70 in adult (HCC) 02/02/2025 Results Follow-Up [facility] MEDIC[facility] BAR Ch[place] [phone] Floresita Potter MD TSH W/Reflex to FT4 02/02/2025 Orders Only [facility] [place] [address] Floresita Potter MD Class 3 severe obesity due to excess calories with serious comorbidity and body mass index (BMI) greater than or equal to 70 in adult (HCC) (Primary Dx) 02/02/2025 Orders Only [address] [address] Floresita Potter MD 01/26/2025 Orders Only [address] [address] Floresita Potter MD Type 2 diabetes mellitus without complication, without long-term current use of insulin (CMS/[facility]) (Primary Dx); Class 3 severe obesity due to excess calories with serious comorbidity and body mass index (BMI) greater than or equal to 70 in adult 01/25/[address] [address] Floresita Potter MD Referral 01/18/[address] [address] Floresita Potter MD Lab Orders 01/14/2025 2:00 PM EDT Office Visit [address] [address] Floresita Potter MD Primary hypertension (Primary Dx); Type 2 diabetes mellitus without complication, without long-term current use of insulin (CMS/[facility]); Class 3 severe obesity due to excess calories with serious comorbidity and body mass index (BMI) greater than or equal to 70 in adult; Acquired hypothyroidism; Encounter for preventive care 01/14/2025 Orders Only [address] [address] Floresita Potter MD Class 3 severe obesity due to excess calories with serious comorbidity and body mass index (BMI) greater than or equal to 70 in adult (Primary Dx); Type 2 diabetes mellitus without complication, without long-term current use of insulin (CMS/HCC) 01/14/2025 Travel 01/13/[address] [address] Floresita Potter MD chart prep 01/12/[address] [address] Floresita Potter MD Losartan medication 01/10/2025 Results Follow-Up [facility] [address] [place] [address] Jyoti Manzo, ROGERS XR Shoulder 2+ Views Right 01/07/2025 Travel 01/05/2025 Patient Outreach [facility] MED[facility] [address] [place] [address] Floresita Potter MD Pre-visit Planning ([facility] screening completed on 07/16/2024) from Last 3 Months Immunizations Immunization Administration [...] the past 12 months, has t he [employer], gas, oil or water company threatened to [...] Visit [facility] MEDICINE [address] [place], [place] [phone] Floresita Potter MD [address] [place], [place] [phone] Health Maintenance Due Date Last Done Comments [...] history exists Dental X-Ray: Full Mouth 01/12/2024 01/10/2021, 12/2020 Dental X-Ray: Bitewings 02/06/2024 02/05/20 23, 01/10/2021, [...] 07/16/2024 Diabetes: Urine Protein Screening 07/30/2025 07/30/2024, 07/30/2024, 06/20/2023, Additional history exists Lipid Panel 07/30/2025 07/30/2024, 08/1 01/2024, 06/20/2023, Additional history exists Disability Screening 01/07/2026 [...] on patient's age to complete this topic Goals Goal Patient Goal Type Associated Problems [...] Patient has chronic kidney disease No Arlette Jernigan, Chon Patient has chronic kidney disease Care Plan Patient has chronic kidney disease No Arlette Jernigan PharmD Weekly blood pressure task Care Plan Weekly blood pressure task No Alejandra Otero Weekly blood pressure task Care Plan Weekly blood pressure task No Branden, Alejandra Patient has chronic kidney disease Care Plan Patient has chronic kidney disease No BrandenAlejandra duran Patient has chronic kidney disease Care Plan Patient has chronic kidney disease No Branden, Alejandra Procedures Procedure Name Priority Date/Time Associated Diagnosis Comments T-SPOT(R).TB Routine 02/02/2025 10:54 AM EDT T4, FREE Routine 02/02/2025 10:54 AM EDT TSH W/REFLEX TO FT4 Routine 02/02/2025 1 0:54 AM EDT Acquired hypothyroidism POCT GLYCATED HEMOGLOBIN, TOTAL Routine 12/23/2024 1:21 PM EDT Type 2 diabetes mellitus without complication, without long-term current use of insulin ([facility]/HCC) ALBUMIN, RANDOM URINE W/CREATININE Routine 07/30/2024 10:48 [...] Results * T-SPOT??.TB (02/02/2025 10:54 AM EDT) T Spot TB Negative Negative [facility] Comment:A negative test resu lt [...] as aquantitative test. TS PANEL A 0 [facility] TS PANEL B 0 [facility] Negative Control Passed [facility] Positive Control Passed [facility] Comment:For additional infor camille, please refer tohttp://education.Thumbs Up/faq/AUW838(This link is being provided for informational/educational purposes only.)THIS TEST WAS PERFORMED AT:[facility]/CNZZ [id number] [place] [id number] COLON MD,PHD 02/02/2025 10:5 4 AM EDT 02/02/2025 1:11 PM EDT us Floresita Ferrer MD LAB BLOOD ORDERABLES Final Result [facility] [address] [place] [phone] * (ABNORMAL) TSH W/Reflex to FT4 (02/02/2025 10:54 AM EDT) TSH reflex Free T4 5.93(H) 0.32 - 4.0 uIU/mL [facility] Blood Venous blood specimen / Unknown 02/02/2025 10:54 AM EDT 02/02/2025 1:11 PM EDT Floresita Ferrer MD LAB BLOOD ORDERABLES Final Result Performing Organization Address City/[facility]/ZIP Co de Phone Number [facility] [address] [place] [phone] * T4, Free (02/02/2025 10:54 AM EDT) Pathologist [facility] Free T4 (Free Thyroxine) 1.11 0.71 - 1.85 ng/dL [facility] 02/02/2025 10:5 4 AM EDT 02/02/2025 1:11 PM EDT Floresita Ferrer MD LAB BLOOD ORDERABLES Final Result Performing Organization Address City/[facility]/ZIP Co de Phone Number [facility] [address] [place] [phone] * (ABNORMAL) POCT HGB A1C (12/23/2024 1:21 PM EDT) Pathologist [facility] Hemoglobin A1C 6.1(A) 4.0 - 5.7 % QC Media Lot # [id number] Lot# Expiration Date Blood 12/23/2024 1:21 PM EDT Floresita Ferrer MD POINT OF CARE TEST EN TER/EDIT ORDERABLES Final Result * (ABNORMAL) Albumin, Random Urine W/Creatinine (07/30/2024 10:48 AM EDT) Creatinine, Urine 188.84 mg/dL [facility] Microalbumin Urine 122.0 mg/L H [facility] Microalbum Creatinine Ratio Ur 64.6(H) <30 ug/mg cr [facility] Comment:Albumin/Creatinine R atio Reference Ranges: Normal: < 30 ug/mg creatinine Microalbuminuria: 30 - 300 ug/mg creatinineClinical Albuminuria: > 300 ug/mg creatinine Urine (Urine, Random) 07/30/2024 10:48 AM EDT 07/30/2024 1:05 PM EDT Floresita Ferrer MD LAB URINE ORDERABLES Final Result Performing Organization Address [facility]/ZIP Co de Phone Number [facility] [address] [place] [phone] * Hepatitis C Antibody with Reflex to HCV, RNA, Quantitative, Real-Time PCR (07/30/2024 10:45 AM EDT) Hepatitis C Antibody Nonreactive Nonreactive [facility] Comment:Antibodies to HCV no t detected; does not exclude early acuteHCV infection. Blood Venous blood specimen / Unknown 07/30/2024 10:45 AM EDT 07/30/2024 1:46 PM EDT us Floresita Ferrer MD LAB BLOOD ORDERABLES Final Result Performing Organization Address [facility]/ZIP Co de Phone Number [facility] [address] [place] [phone] * HIV-1/2 Antigen and Antibodies, Fourth Generation, with Reflexes (07/30/2024 10:45 AM EDT) HIV AB/AG Nonreactive Nonreactive [facility] Comment:HIV-1 p24 Ag and/or HIV-1/HIV-2 Ab not detected.A test result that is nonreactive does not exclude thepossibility of exposure to or infection with HIV-1 and/orHIV-2. Nonreactive results in this assay for individualswith prior exposure to HIV-1 and/or HIV-2 may be due toantigen and antibody levels that are below the limit ofdetection of this assay.The [employer] HIV Ag/Ab Combo assay result andsupplemental assay results should be interpreted inconjunction with the patient's clinical presentation,history and other laboratory results. If the results areinconsistent with clinical evidence, additional testing issuggested to confirm the result. Blood Venous blood specimen / Unknown 07/30/2024 10:45 AM EDT 07/30/2024 1:46 PM EDT us Floresita Ferrer MD LAB BLOOD ORDERABLES Final Result [facility] [address] [place] [phone] * (ABNORMAL) Lipid Panel, Standard (07/30/2024 10:45 AM EDT) Triglycerides 77 <150 mg/dL [facility] Comment:Desirable Triglyceri de: less than 150 mg/dLBorderline High Triglyceride 150-199 mg/dLHigh Triglyceride: 200-499 mg/dLVery High Triglyceride: greater than or equal to 5OO mg/dL Cholesterol 169 <200 mg/dL [facility] Comment:Desirable Cholestero l: less than 200 mg/dLBorderline High Cholesterol: 200-239 mg/dLHigh Cholesterol: greater than 239 mg/dL LDL Cholesterol Calculated 109(H) <100 mg/dL [facility] Comment:Desirable LDL: less than 100 mg/dLNear Optimal/Above Optimal LDL: 110- 129 mg/dLBorderline High LDL: 130-159 mg/dLHigh LDL: 160-189 mg/dLVery High LDL: greater than or equal to 190 mg/dL HDL Cholesterol 45 >40 mg/dL [facility] Comment:Desirable HDL: great er than 40 mg/dL Note: This HDL assay may give artificially low results in patients with liver disease. Blood Venous blood specimen / Unknown 07/30/2024 10:45 AM EDT 07/30/2024 1:46 PM EDT Floresita Ferrer MD LAB BLOOD ORDERABLES Final Result [facility] [address] [place] [phone] from Last 3 Months or Most Recently Relevant to Health Maintenance Additional Health Concerns Active Problems Noted Date [...] 03/17/2025 Patient has chronic kidney disease 03/17/2025 Weekly blood pressure task 03/18/2025 Weekly blood pressure task 03/18/2025 Patient has chronic kidney disease 03/18/2025 Patient has chronic kidney disease 03/18/2025 Insurance [facility] C3 DENTAL-[facility] [place] [id number] Care Teams Rn Advanced Relationship Specialty Start Date End Date Floresita Potter MD [address] [place] [phone] PCP - General Family Medicine 04/09/18
--- OUTSIDE RECORDS SUMMARY | 2025-04-06 08:17 | XMS_ITS | Encounter Summary ---
Author Organization [employer] Address [address] [place] [address] 7 [place] [address] Care Team Providers Care Csr Technician Name Role Phone Floresita Potter MD Primary Care Provide r Reason for Visit * Reason Onset Date Comments Results 02/02/2025 Encounter Details Date Type Department Care Team ([facility] st Contact Info) Description 02/02/2025 Results Follow-Up [facility] [address] [place], [place] [phone] Floresita Potter MD [address] [place] [address] TSH W/Reflex to FT4 Social History Tobacco [...] Description 04/19/2025 2:30 PM EST Office Visit [facility] [address] [place] [address] Floresita Potter MD [address] [place] [address] documented as of this encounter Visit Diagnoses Not on filedocumented in this encounter Additional Health Concerns Assessment Noted Time PHQ-9 Depression Total Score: 0 07/17/19 25 2:40 PM EDT documented as of this encounter Care Teams Csr Technician Relationship Specialty Start Date End Date Floresita Potter MD [address] [place] [address] PCP - General Family Medicine 04/09/18 documented as of this encounter
--- OUTSIDE RECORDS SUMMARY | 2025-04-06 08:17 | XMS_ITS | Encounter Summary ---
Author Organization [employer] Address [address] 7 [place] [address] Care Team Providers Care Set Up Inspector Name Role Phone Floresita Potter MD Primary Care Provide r Reason for Visit * Reason Onset Date Comments Appointment Request 05/15/2023 Encounter Details Date Type Department Care Team ([facility] st Contact Info) Description 05/15/2023 Telephone [facility] MEDICINE [address] [place], [place] [phone] Floresita Potter MD [address] [place], [place] [phone] Appointment Request Social History Tobacco Use Types [...] with others, in a hotel, in a long term, living outside on the street, on a [...] Description 04/19/2025 2:30 PM EST Office Visit [facility] MEDICINE [address] [place] [address] Floresita Potter MD [address] [place] [address] documented as of this encounter Visit Diagnoses Not on filedocumented in this encounter Additional Health Concerns Assessment Noted Time PHQ-9 Depression Total Score: 14 023 10:06 AM EST documented as of this encounter Care Teams Set Up Inspector Relationship Specialty Start Date End Date Floresita Potter MD [address] [place] [address] PCP - General Family Medicine 04/09/18 documented as of this encounter
--- OUTSIDE RECORDS SUMMARY | 2025-04-06 08:17 | XMS_ITS | Encounter Summary ---
Author Organization [email or web address] Address [address] [place] [address] Street 7t [place] [address] Care Team Providers Care Trimmer Machine Name Role Phone Floresita Potter MD Primary Care Provide r Reason for Visit * Reason Comments Med Refill Encounter Details Date Type Department Care Team ([facility] st Contact Info) Description 02/08/2025 Refill [facility] MEDICINE [address] [place], [place] [phone] Floresita Potter MD [address] [place], [place] [phone] Class 3 severe obesity due to excess [...] with others, in a hotel, in a jail, living outside on the street, on a [...] Description 04/19/2025 2:30 PM EST Office Visit [facility] MEDICINE [address] [place] [phone] Floresita Potter MD [address] [place] [phone] documented as of this encounter Visit Diagnoses Diagnosis Class 3 severe obesity due to excess calories with serious comorbidity and body mass index (BMI) greater than or equal to 70 in adult (HCC) documented in this encounter Additional Health Concerns Assessment Noted Time PHQ-9 Depression Total Score: 0 07/17/19 25 2:40 PM EDT documented as of this encounter Care Teams Trimmer Machine Relationship Specialty Start Date End Date Floresita Potter MD [address] [place] [phone] PCP - General Family Medicine 04/09/18 documented as of this encounter
--- OUTSIDE RECORDS SUMMARY | 2025-04-06 08:17 | XMS_ITS | Encounter Summary ---
Author Organization [employer] Address [address] [place] [address] Care Team Providers Care Portainer Operator Name Role Phone Floresita Potter MD Primary Care Provide r Reason for Visit * Reason Comments Med Refill Encounter Details Date Type Department Care Team ([facility] st Contact Info) Description 10/19/2023 Refill [facility] MED[facility]INE [address] [place] [address] Cristo Rivas FNP Social History Tobacco Use [...] Description 04/19/2025 2:30 PM EST Office Visit [facility] MEDICINE [address] [place] [phone] Floresita Potter MD [address] [place] [address] documented as of this encounter Visit Diagnoses Not on filedocumented in this encounter Additional Health Concerns Assessment Noted Time PHQ-9 Depression Total Score: 14 023 10:06 AM EST documented as of this encounter Care Teams Portainer Operator Relationship Specialty Start Date End Date Floresita Potter MD [address] [place] [phone] PCP - General Family Medicine 04/09/18 documented as of this encounter
--- OUTSIDE RECORDS SUMMARY | 2025-04-25 08:13 | XMS_ITS | Encounter Summary ---
Author Organization [employer] Address [address] 7[address] [place] [address] Care Team Providers Care Academic Computing Director Name Role Phone Floresita Potter MD Primary Care Provide r Encounter Details Date Type Department Care Team (Late st Contact Info) Description 07/22/2024 Orders Only [facility] MEDICINE [address] [place], [place] [phone] Floresita Potter MD [address] [place], [place] [phone] Social History Tobacco Use Types Packs/Day Years [...] as of this encounter Plan of Treatment Not on file documented as of this encounter Visit Diagnoses Not on filedocumented in this encounter Additional Health Concerns Assessment Noted Time PHQ-9 Depression Total Score: 0 07/17/19 25 2:40 PM EDT documented as of this encounter Care Teams Academic Computing Director Relationship Specialty Start Date End Date Floresita Potter MD [address] [place] [address] PCP - General Family Medicine 04/09/18 documented as of this encounter
--- OUTSIDE RECORDS SUMMARY | 2025-04-25 08:13 | XMS_ITS | Clinical Summary ---
Author Organization [facility] Address [address] [place] [phone] Phone Care Team Providers Care Government Affairs Researcher Name Role Phone Floresita Potter MD Primary [...] topic Insurance MEDICAID - [place] Care Teams Government Affairs Researcher Relationship Specialty Start Date End Date Floresita Potter MD [address] [place] [phone] PCP - General Internal Medicine 08/17/24
--- OUTSIDE RECORDS SUMMARY | 2025-04-25 08:13 | XMS_ITS | Encounter Summary ---
Author Organization [employer] Address [address] 7[address] [place] [address] Care Team Providers Care Technical Staff Assistant Name Role Phone Floresita Potter MD Primary Care Provide r Reason for Visit * Reason Comments Med Refill Encounter Details Date Type Department Care Team ([facility] st Contact Info) Description 10/19/2023 Refill [facility] MED[facility]INE [address] [place] [address] Cristo Rivas FNP Social History Tobacco Use [...] with others, in a hotel, in a detention, living outside on the street, on a [...] documented as of this encounter Care Teams Technical Staff Assistant Relationship Specialty Start Date End Date Floresita Potter MD [address] [place] [phone] PCP - General Family Medicine 04/09/18 documented as of this encounter
--- OUTSIDE RECORDS SUMMARY | 2025-04-25 08:13 | XMS_ITS | Encounter Summary ---
Author Organization [employer] Address [address] [place] [address] Care Team Providers Care School Photograph Editor Name Role Phone Floresita Potter MD Primary Care Provide r Reason for Visit * Reason Comments Med Refill Encounter Details Date Type Department Care Team ([facility] st Contact Info) Description 03/17/2025 Refill [facility] MED[facility]INE [address] [place], [place] [phone] Floresita Potter MD [address] [place], [place] [phone] Essential hypertension Social History Tobacco Use Types [...] with others, in a hotel, in a fci, living outside on the street, on a [...] on file documented as of this encounter Goals Goal [...] Care Plan Patient has chronic kidney disease Mary Anne Montelongo RN Weekly blood pressure task Care Plan Weekly blood pressure task No Mary Anne Vivas RN Patient has chronic kidney disease Care Plan Patient has chronic kidney disease Mary Anne Montelongo RN Weekly blood pressure task Care Plan [...] documented as of this encounter Care Teams School Photograph Editor Relationship Specialty Start Date End Date Floresita Potter MD [address] [place] [address] PCP - General Family Medicine 04/09/18 documented as of this encounter
--- OUTSIDE RECORDS SUMMARY | 2025-04-25 08:13 | XMS_ITS | Encounter Summary ---
Author Organization [employer] Address [address] [place] [address] Care Team Providers Care Medical Videographer Name Role Phone Floresita Potter MD Primary Care Provide r Cristo Rivas Unavailable Unavailable Encounter Details Date Type Department Care Team (Latest Contact Info) Description 01/26/2021 Abstract [facility] CONVERSIONS Dental, Provider, DDS Social History Tobacco [...] on filedocumented in this encounter Care Teams Medical Videographer Relationship Specialty Start Date End Date Floresita Potter MD [address] [place] [address] PCP - General Family Medicine 04/09/18 Cristo Rivas FNP [address] [place] [address] Nurse Practitioner Family Medicine 03/26/23 04/14/23 documented as of this encounter
--- OUTSIDE RECORDS SUMMARY | 2025-04-25 08:13 | XMS_ITS | Encounter Summary ---
Author Organization [employer] Address [address] [place] [address] Street [address] [place] [address] Care Team Providers Care Market Research Senior Project Manager Name Role Phone Floresita Potter MD Primary Care Provide r Reason for Visit * Reason Comments Med Refill Encounter Details Date Type Department Care Team ([facility] st Contact Info) Description 02/08/2025 Refill [facility] MEDICINE [address] [place], [place] [phone] Floresita Potter MD [address] [place], [place] [phone] Class 3 severe obesity due to excess [...] documented as of this encounter Care Teams Market Research Senior Project Manager Relationship Specialty Start Date End Date Floresita Potter MD [address] [place] [id number] PCP - General Family Medicine 04/09/18 documented as of this encounter
--- OUTSIDE RECORDS SUMMARY | 2025-04-25 08:13 | XMS_ITS | Encounter Summary ---
Author Organization [employer] Address [address] [place] [address] Care Team Providers Care Log Haul Chain Feeder Name Role Phone Floresita Potter MD Primary Care Provide r Reason for Visit * Reason Onset Date Comments Referral 03/23/2024 Encounter Details Date Type Department Care Team ([facility] Contact Info) Description 03/23/2024 Telephone [facility] MEDICINE [address] [place], [place] [phone] Floresita Potter MD [address] [place], [place] [phone] Referral Social History Tobacco Use Types Packs/Day [...] pt leaving on vacation soon. Callback number [phone] documented in this encounter Plan of Treatment Not on file documented as of this encounter Visit Diagnoses Not on filedocumented in this encounter Additional Health Concerns Assessment Noted Time PHQ-9 Depression Total Score: 14 023 10:06 AM EST documented as of this encounter Care Teams Log Haul Chain Feeder Relationship Specialty Start Date End Date Floresita Potter MD [address] [place] [address] PCP - General Family Medicine 04/09/18 documented as of this encounter
--- OUTSIDE RECORDS SUMMARY | 2025-04-25 08:13 | XMS_ITS | Encounter Summary ---
Author Organization [employer] Address [address] [place] [address] Care Team Providers Care Gse Mechanic Name Role Phone Floresita Potter MD Primary Care Provide r Reason for Visit * Reason Onset Date Comments Appointment Request 05/15/2023 Encounter Details Date Type Department Care Team ([facility] st Contact Info) Description 05/15/2023 Telephone [facility] MEDICINE 230 [place], [place] [phone] Floresita Potter MD [address] [place], [place] [phone] Appointment Request Social History Tobacco Use Types [...] documented as of this encounter Care Teams Gse Mechanic Relationship Specialty Start Date End Date Floresita Potter MD [address] [place] [id number] PCP - General Family Medicine 04/09/18 documented as of this encounter
--- OUTSIDE RECORDS SUMMARY | 2025-04-25 08:13 | XMS_ITS | Encounter Summary ---
Author Organization [employer] Address [address] [place] [address] Care Team Providers Care Engineer Automated Equipment Name Role Phone Floresita Potter MD Primary Care Provide r Cristo Rivas Unavailable Unavailable Encounter Details Date Type Department Care Team (Late st Contact Info) Description 04/16/2022 Abstract [facility] MEDICINE [address] [place] [address] Chris Chen RN Social History Tobacco Use [...] on filedocumented in this encounter Care Teams Engineer Automated Equipment Relationship Specialty Start Date End Date Floresita Potter MD [address] [place] [address] PCP - General Family Medicine 04/09/18 Cristo Rivas FNP [address] [place] [address] Nurse Practitioner Family Medicine 03/26/23 04/14/23 documented as of this encounter
--- OUTSIDE RECORDS SUMMARY | 2025-04-25 08:13 | XMS_ITS | Encounter Summary ---
Author Organization [employer] Address [address] [place] [address] Street [address] [place] [address] Care Team Providers Care Observer Helper Name Role Phone Floresita Potter MD Primary Care Provide r Reason for Visit * Reason Onset Date Comments Nurse Triage 11/05/2023 Encounter Details Date Type Department Care Team ([facility] st Contact Info) Description 11/05/2023 Telephone [facility] MEDICINE 230 [place], [place] [phone] Floresita Potter MD 230 [place], [place] [phone] Nurse Triage Social History Tobacco Use Types [...] EDT Triage call returned to patient with [employer] Plastician [phone]. Patient reports one week of pain in [...] at time of call. Patient advised of [facility] hours and availability for today and tomorrow [...] accepted this outcome Please contact pt at [phone] documented in this encounter Plan of Treatment Not on file documented as of this encounter Visit Diagnoses Not on filedocumented in this encounter Additional Health Concerns Assessment Noted Time PHQ-9 Depression Total Score: 14 023 10:06 AM EST documented as of this encounter Care Teams Observer Helper Relationship Specialty Start Date End Date Floresita Potter MD [address] [place] [id number] PCP - General Family Medicine 04/09/18 documented as of this encounter
--- OUTSIDE RECORDS SUMMARY | 2025-04-25 08:13 | XMS_ITS | Encounter Summary ---
Author Organization [employer] Address [address] [place] [address] Street [address] [place] [address] Care Team Providers Care Day Light Relief Operator Name Role Phone Floresita Potter MD Primary Care Provide r Reason for Visit * Reason Comments Med Refill Encounter Details Date Type Department Care Team ([facility] st Contact Info) Description 07/29/2024 Refill [facility] MED[facility]INE 230 [place], [place] [phone] Floresita Potter MD [address] [place], [place] [phone] Essential hypertension Social History Tobacco Use Types [...] documented as of this encounter Care Teams Day Light Relief Operator Relationship Specialty Start Date End Date Floresita Potter MD [address] [place] [id number] PCP - General Family Medicine 04/09/18 documented as of this encounter
--- OUTSIDE RECORDS SUMMARY | 2025-04-25 08:13 | XMS_ITS | Clinical Summary ---
Author Organization [employer] Address [address] [place] [address] Care Team Providers Care Senior Security Architect Name Role Phone Floresita Potter MD Primary [...] EVERYDAY AT NOON 30 tablet 11 5 3:36 PM EST 12/15/19 25 Active Ascorbic Acid (vitamin C) 500 MG tabletIndicatio ns:Anemia, unspecified type TAKE 1 TABLET BY MOUTH TWICE DAILY AT NOON AND IN THE EVENING 180 tablet 1 12/15/19 25 Active losartan (Cozaar) 25 MG tabletIndicatio ns:Primary hypertension TAKE 1 TABLET BY MOUTH EVERYDAY AT NOON 90 tablet 12/17/19 25 Active cholecalciferol (Vitamin D-3) 25 MCG tabletIndicatio ns:Vitamin D deficiency TAKE 1 TABLET BY MOUTH EVERYDAY AT NOON 90 tablet 1 5 12:09 PM EST 03/08/20 25 Active hydroCHLOROthia zide (HYDRODiuril) 25 MG tabletIndicatio ns:Essential hypertension Take 1 tablet (25 mg) by mouth Once per day. 90 tablet 5 12:09 PM EST 03/17/20 25 Active Tirzepatide (Mounjaro) 5 MG/0.5ML solution auto-injectorIn dications:Type 2 diabetes mellitus without complication, without long-term current use of insulin (HCC) Inject 5 mg under the skin 1 (one) time per week. 2 mL 5 8:45 AM EST 04/19/20 25 Active neomycin-polymy igor-pramoxine (Neosporin Plus Pain Relief MS) 1 % creamIndication s:Open wound of skin Apply topically 2 times daily. 14 g 1 04/19/20 25 Active tolnaftate (Tinactin) 1 % sprayIndication s:Tinea pedis of both feet Apply topically 2 times daily. 130 g 04/19/20 25 Active Tirzepatide (Mounjaro) 7.5 MG/0.5ML solution auto-injectorIn dications:Type 2 diabetes mellitus without complication, without long-term current use of insulin (HCC) Inject 7.5 mg under the skin 1 (one) time per week. Do not start before May 20, 2026. 2 mL 05/20/19 27 Active Neomycin-Bacitr acin-Polymyxin (Neosporin Original) ointmentIndicat ions:Open wound of skin Apply 1 Application topically 2 times daily. 14.2 g 1 04/19/20 25 Active Tirzepatide (Mounjaro) 2.5 MG/0.5ML solution auto-injectorIn dications:Type 2 diabetes mellitus without complication, without long-term current use of insulin (HCC) Inject 2.5 mg under the skin 1 (one) time per week. 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 He is working with [employer] and exploring options for medication-assisted weight loss [...] exercise done today I will refer to actuarial consultant Patient is waiting for appointment for bariatric [...] on next appointment, patient will go to [place] for 2 months, I also advised: - [...] Encounters Date Type Department Care Team Description 04/19/2025 2:30 PM EST Office Visit [facility] [address] [place] [phone] Floresita Potter MD Class 3 severe obesity due to excess calories with serious comorbidity and body mass index (BMI) greater than or equal to 70 in adult ([facility]) (Primary Dx); Type 2 diabetes mellitus without complication, without long-term current use of insulin ([facility]); Open wound of skin; Tinea pedis of both feet; Dry skin dermatitis; Stasis dermatitis; Mood disorder ([facility]); Encounter for immunization 04/19/2025 Orders Only [facility] [address] [place] [phone] Floresita Potter MD Open wound of skin (Primary Dx) 04/19/[address] [address] Floresita Potter MD Medication Question 04/19/2025 Travel 04/18/[address] [phone] Floresita Potter MD Chart Prep 04/08/2025 Patient Outreach [address] [phone] Floresita Potter MD Pre-visit Planning ([facility] screening completed on 07/16/2024) 03/17/2025 Refill [facility] [address] [place] [phone] Floresita Potter MD Essential hypertension 03/17/2025 Refill [facility] [place] [phone] Floresita Potter MD Essential hypertension 03/08/2025 Refill [facility] [place] [phone] Floresita Potter MD Vitamin D deficiency 02/24/2025 Orders Only [facility] [place] [address] Floresita Potter MD Type 2 diabetes mellitus without complication, without long-term current use of insulin (HCC) (Primary Dx) 02/24/2025 Telephone [facility] [place] [address] Floresita Potter MD Medication Question 02/23/2025 Telephone [facility] Jennifer [facility] [place] [address] Floresita Potter MD Prior Authorization ( PA: [employer] denial.) 02/16/2025 Telephone [facility] [place] [phone] Floresita Potter MD Prior Authorization ( PA: [employer]) 02/14/2025 11:00 AM EDT Telemedicine [facility] [place] [phone] Floresita Potter MD Class 3 severe obesity due to excess calories with serious comorbidity and body mass index (BMI) greater than or equal to 70 in adult (HCC) (Primary Dx); Acquired hypothyroidism 02/14/2025 Travel 02/13/2025 Travel 02/08/2025 Refill [facility] Jennifer [place] [phone] Floresita Potter MD Class 3 severe obesity due to excess calories with serious comorbidity and body mass index (BMI) greater than or equal to 70 in adult (HCC) 02/02/2025 Results Follow-Up [facility] [place] [phone] Floresita Potter MD TSH W/Reflex to FT4 02/02/2025 Orders Only [address] [phone] Floresita Potter MD Class 3 severe obesity due to excess calories with serious comorbidity and body mass index (BMI) greater than or equal to 70 in adult ([facility]) (Primary Dx) 02/02/2025 Orders Only [address] [phone] Floresita Potter MD 01/26/2025 Orders Only [address] [phone] Floresita Potter MD Type 2 diabetes mellitus without complication, without long-term current use of insulin ([facility]) (Primary Dx); Class 3 severe obesity due to excess calories with serious comorbidity and body mass index (BMI) greater than or equal to 70 in adult 01/25/[address] [address] Floresita Potter MD Referral from Last 3 Months Immunizations Immunization Administration Dates Next Due HepB-CpG 11/08/2022 Influenza injectable quadriv alent IIV4 with preservative 02/22/2016,02/03/2015 Influenza injectable quadriv alent preservative free 06/13/2023,04/12/2020,01/28/2019,2017 Influenza, IIV3, injectable 04/07/2014 Influenza, Split (incl. vaishnavi fied surface antigen) 03/30/2013 Influenza, seasonal, injecta ble, preservative free 04/19/2025,07/16/2024 Moderna Covid-19 Vaccine 12+ 09/04/2020,08/08/19 21 Pfizer Covid-19 Vaccine + 06/13/2023 Tdap 08/08/2014 Social History Tobacco Use Types Packs/Day Years Used Date Smoking Tobacco: Never Passive Smoke Exposure: Never Smokeless Tobacco: Never Tobacco Cessation:Counseling Given: Not Answered Alcohol Use Standard Drinks/Week Comments Never 0 (1 standard drink = 0.6 oz pur e alcohol) Depression Answer Date Recorded Patient Health Questionnaire-9 Score 13 04/19/2025 Patient Health Questionnaire-9 Score 13 04/19/2025 Last PHQ-9: Questionnaire Data Not on file 1 06/20/2024 Housing Stability Answer Date Recorded What is your housing situation today? I do not have housing (Staying with others, in a hotel, in a halfway, living outside on the street, on a [...] Answer Date Recorded Patient Health Questionnaire-2 Score 4 04/19/2025 Internet Access Answer Date Recorded Internet Access [...] Sign Reading Time Taken Comments Blood Pressure 126/82 04/19/2025 2:30 PM EST fou r arm Pulse 99 04/19/2025 2:30 PM EST Temperature 36.1 C (97 F) 04/19/2025 2:30 PM EST Respiratory Rate 17 04/19/2025 2:30 PM EST Oxygen Saturation 93% 04/19/2025 2:30 PM EST Inhaled Oxygen Concentration - - Weight 196 kg (431 lb 12.8 oz) 04/19/2025 2:30 P M EST Height 165.1 cm (5' 5 ) 04/19/2025 2:30 PM EST Body Mass Index 71.86 04/19/2025 2:30 PM EST Plan of Treatment Health Maintenance Due Date [...] Vaccine ( season) 2025 06/13/2023, 09/04/2020, 08/07/2020 Diabetes: Hemoglobin A1C 06/25/2025 025, 09/20/2024, 07/16/2024, Additional history exists Alcohol/Substance Use Screening 07/16/2025 07/16/2024 SDOH Screening 07/16/2025 07/16/2024 Diabetes: Urine Protein Screening 07/30/2025 07/30/2024, 07/30/2024, 06/20/2023, Additional history exists Lipid Panel 07/30/2025 07/30/2024, 12/03, 06/20/2023, Additional history exists Depression Monitoring 10/18/2025 04/19/2025, 025 Disability Screening 01/07/2026 01/07/2025 Tobacco Screening 04/19/2026 04/19/2025 Zoster Vaccines (1 of 2) 2044 RSV Patients and Patients Aged 60 years or older (1 - 1-dose 75+ series) 2069 HIV Screening Completed 07/30/2024, 06/20/2023 Hepatitis C Screening Completed 07/30/2024, 024 Influenza Vaccine Completed 04/19/2025, , 06/13/2023, Additional history exists HIB Vaccines Aged Out No longer eligi [...] Weekly blood pressure task No Alejandra Otero Patient has chronic kidney disease Care Plan Patient has chronic kidney disease No Alejandra Otero Patient has chronic kidney disease Care Plan Patient has chronic kidney disease No Alejandra Otero Weekly blood pressure task Care Plan Weekly blood pressure task No Joy Ramirez Weekly blood pressure task Care Plan Weekly blood pressure task No Ashley Joy Patient has chronic kidney disease Care Plan Patient has chronic kidney disease No Ashley Joy Patient has chronic kidney disease Care Plan Patient has chronic kidney disease No Joy Ramirez Weekly blood pressure task Care Plan Weekly blood pressure task No Steffi Huang MA Weekly blood pressure task Care Plan Weekly blood pressure task No Steffi Huang MA Patient has chronic kidney disease Care Plan Patient has chronic kidney disease No Steffi Huang MA Patient has chronic kidney disease Care Plan Patient has chronic kidney disease No Steffi Huang MA Weekly blood pressure task Care Plan Weekly blood pressure task No Steffi Huang MA Weekly blood pressure task Care Plan Weekly blood pressure task No Steffi Huang MA Patient has chronic kidney disease Care Plan Patient has chronic kidney disease No Steffi Huang MA Patient has chronic kidney disease Care Plan Patient has chronic kidney disease No Steffi Huang MA Weekly blood pressure task Care Plan Weekly blood pressure task No Hadley Gregory Weekly blood pressure task Care Plan Weekly blood pressure task No Hadley Gregory Patient has chronic kidney disease Care Plan Patient has chronic kidney disease No Hadley Gregory Patient has chronic kidney disease Care Plan Patient has chronic kidney disease No Hadley Gregory Weekly blood pressure task Care Plan Weekly blood pressure task No Floresita Potter MD Weekly blood pressure task Care Plan Weekly blood pressure task No Floresita Potter MD Patient has chronic kidney disease Care Plan Patient has chronic kidney disease No Floresita Potter MD Patient has chronic kidney disease Care Plan Patient has chronic kidney disease No Floresita Potter MD Weekly blood pressure task Care Plan Weekly blood pressure task No Lorie Castro Weekly blood pressure task Care Plan Weekly blood pressure task No Lorie Castro Patient has chronic kidney disease Care Plan Patient has chronic kidney disease No MatthewLorie Patient has chronic kidney disease Care Plan Patient has chronic kidney disease No MatthewSalLorie Weekly blood pressure task Care Plan Weekly blood pressure task No Matthew Lorie Weekly blood pressure task Care Plan Weekly blood pressure task No MatthewLorie Patient has chronic kidney disease Care Plan Patient has chronic kidney disease No MatthewSalLorie Patient has chronic kidney disease Care Plan Patient has chronic kidney disease Mirta Matthew Lorie Procedures Procedure Name Priority Date/Time Associated Diagnosis Comments POCT GLUCOSE Routine 04/19/2025 2:31 PM EST Type 2 diabetes mellitus without complication, without long-term current use of insulin (HCC) T-SPOT(R).TB Routine 02/02/2025 10:54 AM EDT T4, FREE Routine 02/02/2025 10:54 AM EDT TSH W/REFLEX TO FT4 Routine 02/02/2025 1 0:54 AM EDT Acquired hypothyroidism POCT GLYCATED HEMOGLOBIN, TOTAL Routine 12/23/2024 1:21 PM EDT Type 2 diabetes mellitus without complication, without long-term current use of insulin (CMS/HCC) ALBUMIN, RANDOM URINE W/CREATININE Routine 07/30/2024 10:48 [...] complication, without long-term current use of insulin ([facility]) Class 3 severe obesity due to excess calories with serious comorbidity and body mass index (BMI) greater than or equal to 70 in adult ([facility]) PROPHYLAXIS - ADULT Routine 08/07/2023 1 :00 PM EDT Dental calculus BITEWINGS - 4 RADIOGRAPHIC IMAGES Routine 02/04/2023 1:00 PM EDT Dental calculus Gingivitis INTRAORAL - COMPLETE SERIES OF RADIOGRAPHIC IMAGES Routine 01/10/2021 12:00 AM EDT PERIODIC ORAL EVALUATION - ESTABLISHED PATIENT Routine 01/10/2021 12:00 AM EDT from Last 3 Months or Most Recently Relevant to Health Maintenance Results * POCT Glucose (04/19/2025 2:31 PM EST) Pathologist [facility] Glucose Blood, POC 134 60 - 200 mg/dL QC Media Lot # [id number] Lot# Expiration Date Blood Capillary blood specimen / Unknown 04/19/2025 2:31 PM EST Floresita Ferrer MD POINT OF CARE TEST EN TER/EDIT ORDERABLES Final Result * T-SPOT??.TB (02/02/2025 10:54 AM EDT) Pathologist [facility] T Spot TB Negative Negative [facility] Comment:A negative test resu lt [...] as aquantitative test. TS PANEL A 0 [facility] TS PANEL B 0 [facility] Negative Control Passed [facility] Positive Control Passed [facility] Comment:For additional infor camille, please refer tohttp://education.[employer]/faq/TSR146(This link is being provided for informational/educational purposes only.)THIS TEST WAS PERFORMED AT:[facility]/[id number] [place] [id number] COLON MD,PHD 02/02/2025 10:5 4 AM EDT 02/02/2025 1:11 PM EDT us Floresita Ferrer MD LAB BLOOD ORDERABLES Final Result Performing Organization Address [facility]/ZIP Co de Phone Number [facility] [address] [place] [phone] * (ABNORMAL) TSH W/Reflex to FT4 (02/02/2025 10:54 AM EDT) TSH reflex Free T4 5.93(H) 0.32 - 4.0 uIU/mL [facility] Blood Venous blood specimen / Unknown 02/02/2025 10:54 AM EDT 02/02/2025 1:11 PM EDT us Floresita Ferrer MD LAB BLOOD ORDERABLES Final Result Performing Organization Address [facility]/ZIP Co de Phone Number [facility] [address] [place] [phone] * T4, Free (02/02/2025 10:54 AM EDT) Free T4 (Free Thyroxine) 1.11 0.71 - 1.85 ng/dL [facility] 02/02/2025 10:5 4 AM EDT 02/02/2025 1:11 PM EDT Floresita Ferrer MD LAB BLOOD ORDERABLES Final Result Performing Organization Address [facility]/ZIP Co de Phone Number [facility] [address] [place] [phone] * (ABNORMAL) POCT HGB A1C (12/23/2024 1:21 PM EDT) Pathologist [facility] Hemoglobin A1C 6.1(A) 4.0 - 5.7 % QC Media Lot # [id number] Lot# Expiration Date 643 Blood 12/23/2024 1:21 PM EDT Floresita Ferrer MD POINT OF CARE TEST EN TER/EDIT ORDERABLES Final Result * (ABNORMAL) Albumin, Random Urine W/Creatinine (07/30/2024 10:48 AM EDT) Pathologist [facility] Creatinine, Urine 188.84 mg/dL [facility] Microalbumin Urine 122.0 mg/L [facility] Microalbum Creatinine Ratio Ur 64.6(H) <30 ug/mg cr [facility] Comment:Albumin/Creatinine R atio Reference Ranges: Normal: < 30 ug/mg creatinine Microalbuminuria: 30 - 300 ug/mg creatinineClinical Albuminuria: > 300 ug/mg creatinine Urine (Urine, Random) 07/30/2024 10:48 AM EDT 07/30/2024 1:05 PM EDT Floresita Ferrer MD LAB URINE ORDERABLES Final Result Performing Organization Address City/[facility]/ZIP Co de Phone Number [facility] [address] [place] [phone] * Hepatitis C Antibody with Reflex to HCV, RNA, Quantitative, Real-Time PCR (07/30/2024 10:45 AM EDT) Pathologist [facility] Hepatitis C Antibody Nonreactive Nonreactive [facility] Comment:Antibodies to HCV no t detected; does not exclude early acuteHCV infection. Blood Venous blood specimen / Unknown 07/30/2024 10:45 AM EDT 07/30/2024 1:46 PM EDT us Floresita Ferrer MD LAB BLOOD ORDERABLES Final Result Performing Organization Address [facility]/ZIP Co de Phone Number [facility] [address] [place] [phone] * HIV-1/2 Antigen and Antibodies, Fourth Generation, with Reflexes (07/30/2024 10:45 AM EDT) Pathologist [facility] HIV AB/AG Nonreactive Nonreactive [facility] Comment:HIV-1 p24 Ag and/or HIV-1/HIV-2 Ab not detected.A test result that is nonreactive does not exclude thepossibility of exposure to or infection with HIV-1 and/orHIV-2. Nonreactive results in this assay for individualswith prior exposure to HIV-1 and/or HIV-2 may be due toantigen and antibody levels that are below the limit ofdetection of this assay.The [employer] HIV Ag/Ab Combo assay result andsupplemental assay results should be interpreted inconjunction with the patient's clinical presentation,history and other laboratory results. If the results areinconsistent with clinical evidence, additional testing issuggested to confirm the result. Blood Venous blood specimen / Unknown 07/30/2024 10:45 AM EDT 07/30/2024 1:46 PM EDT us Floresita Ferrer MD LAB BLOOD ORDERABLES Final Result Performing Organization Address [facility]/ZIP Co de Phone Number [facility] [address] [place] [phone] * (ABNORMAL) Lipid Panel, Standard (07/30/2024 10:45 AM EDT) Triglycerides 77 <150 mg/dL [facility] Comment:Desirable Triglyceri de: less than 150 mg/dLBorderline High Triglyceride 150-199 mg/dLHigh Triglyceride: 200-499 mg/dLVery High Triglyceride: greater than or equal to 5OO mg/dL Cholesterol 169 <200 mg/dL [facility] Comment:Desirable Cholestero l: less than 200 mg/dLBorderline High Cholesterol: 200-239 mg/dLHigh Cholesterol: greater than 239 mg/dL LDL Cholesterol Calculated 109(H) <100 mg/dL [facility] Comment:Desirable LDL: less than 100 mg/dLNear Optimal/Above Optimal LDL: 110- 129 mg/dLBorderline High LDL: 130-159 mg/dLHigh LDL: 160-189 mg/dLVery High LDL: greater than or equal to 190 mg/dL HDL Cholesterol 45 >40 mg/dL [facility] Comment:Desirable HDL: great er than 40 mg/dL Note: This HDL assay may give artificially low results in patients with liver disease. Blood Venous blood specimen / Unknown 07/30/2024 10:45 AM EDT 07/30/2024 1:46 PM EDT us Flroesita Ferrer MD LAB BLOOD ORDERABLES Final Result [facility] [address] [place] [phone] from Last 3 Months or Most [...] 03/18/2025 Patient has chronic kidney disease 03/18/2025 Weekly blood pressure task 04/08/2025 Weekly blood pressure task 04/08/2025 Patient has chronic kidney disease 04/08/2025 Patient has chronic kidney disease 04/08/2025 Weekly blood pressure task 04/18/2025 Weekly blood pressure task 04/18/2025 Patient has chronic kidney disease 04/18/2025 Patient has chronic kidney disease 04/18/2025 Weekly blood pressure task 04/18/2025 Weekly blood pressure task 04/18/2025 Patient has chronic kidney disease 04/18/2025 Patient has chronic kidney disease 04/18/2025 Weekly blood pressure task 04/19/2025 Weekly blood pressure task 04/19/2025 Patient has chronic kidney disease 04/19/2025 Patient has chronic kidney disease 04/19/2025 Weekly blood pressure task 04/19/2025 Weekly blood pressure task 04/19/2025 Patient has chronic kidney disease 04/19/2025 Patient has chronic kidney disease 04/19/2025 Weekly blood pressure task 04/20/2025 Weekly blood pressure task 04/20/2025 Patient has chronic kidney disease 04/20/2025 Patient has chronic kidney disease 04/20/2025 Weekly blood pressure task 04/20/2025 Weekly blood pressure task 04/20/2025 Patient has chronic kidney disease 04/20/2025 Patient has chronic kidney disease 04/20/2025 Insurance [facility] [place] [address] [place] [id number] [place] Care Teams Senior Security Architect Relationship Specialty Start Date End Date Floresita Potter MD [address] [place] [phone] PCP - General Family Medicine 04/09/18
--- NOTE | 2025-04-25 10:25 | A.OFFVIS_ITS ---
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 Manufacturing Required: Yes Manager Manufacturing Services: Manager Manufacturing Present Information Interpreted: clinical only Allergies No Known Allergies (No Known Allergies*) Allergy (Verified 04/25/25 10:27) Medication List - Last Reconciled 04/25/25 by Frank Griffin MD aripiprazole 20 mg PO DAILY ascorbic acid (vitamin C) (Vitamin C) 500 mg PO BID cholecalciferol (vitamin D3) 50 mcg PO DAILY cyclobenzaprine 10 mg PO TID empagliflozin (Jardiance) 10 mg PO DAILY ferrous sulfate (FeroSul) 325 mg PO BID hydrochlorothiazide 25 mg PO DAILY levothyroxine 75 mcg PO DAILY naproxen 500 mg PO tirzepatide (Mounjaro) 5 mg subcut QWEEK vitamin A palmitate 3,000 mcg PO DAILY HPI 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: Details: Start time: 10.09am, End time: 11.09am ?I spent 55 minutes speaking with the patient on the phone plus an additional 5 minutes reviewing and updating records for a total of 60 minutes HPI Comments Details: Previous weight loss efforts: Ozempic and Mounjaro: lost 22lbs in 6mths Wakes up: 9am, Sleeps: 11am Breakfast: 10am (eggs with bread) Lunch: skips Dinner: 4pm (soups, rice, chicken) Snacks: 6pm (sweets, chips, cookies) Exercise: none Beverages: Coffee (2 cups/d with sugar), Tea: none, Soda: regular Sprite (2 glasses/d), Juice: Crystal light, ETOH: none PFSH Medical History (Updated 04/25/25 @ 10:35 by Frank Griffin MD) DJD (degenerative joint disease) Hypertension Sleep apnea Prediabetes Back pain Sleep apnea with use of continuous positive airway pressure (CPAP) Asthma Hypothyroidism Surgical History (Updated 02/25/25 @ 13:42 by Evelyn Vuong CMA) History of surgery on lower extremity Morbid obesity Family History Mother Amputated right leg Father No problems noted. Brother No problems noted. Brother No problems noted. Sister No problems noted. 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 Plan for lap sleeve gastrectomy. If diaphragmatic or ventral hernias are present at time of surgery, these will be repaired laparoscopically as well. I emphasized the importance of close follow-up, adherence to instructions and good communication. The surgery does not replace the need to change your lifestlyle which is the cause of the obesity problem. The surgery provides the motivation to try again to change your lifestyle, it reduces the appetite and make the transition to a better lifestyle easier and doubles the amount of weight you would lose compared to doing the lifestyle change without the surgery. You will need to be on a liquid diet with protein shakes for 2 weeks before surgery to maximize weight loss and boost your nutritional status to recover better from surgery and also for the first two weeks after surgery to let the stomach heal before we introduce other foods. After the first 2 weeks we will introduce protein bars and soft foods like scrambled eggs, cottage cheese and yogurt and after the 6th week will introduce meat, fish and cooked vege tables in small amounts. Over time you should be able to eat everything in small amounts. Side effects like nausea, vomiting, heartburn or abdominal pain are not common in the practice unless you are not following in the practice. This operation requires lifetime commitment to following in our practice and communication with me. You will much less weight and experience side effects if you don?t communicate or not following in the practice. Complications are rare and in our practice is about 1/10 of the national average. However, you can develop bleeding that may require transfusion (hasn?t happened for year in the practice), you may from complications (we did not have any deaths in the practice) and infections. Infections are usually a result of breakdown in communication or not understanding or following directions correctly. They are difficult to treat, they can happen during the first 6 weeks, they may require to be in the hospital for weeks or even months, not being able to eat by mouth and you may have drains and surgeries to try and correct the issue. Other risks and complications include possible conversion to an open procedure, leaks, small bowel obstruction, blood clots, cardiac, or pulmonary complications, as nursing home complications such as ulcers, insufficient weight loss and vitamin deficiencies. 2. Nutritional counseling. Start with one premade PREMIER protein (buy at [employer] or [employer]) shake (8oz of Premier and NOT the whole bottle) at 10am-12pm, one protein bar (Fit Crunch protein bar, buy at [employer], or [employer]) at 1pm-3pm, another premade PREMIER protein shake (8oz of Premier and NOT the whole bottle) at 4pm-6pm, dinner at 7pm (14 forks of protein and 14 forks of salad/vegetables) and one more Fit Crunch protein bar at 9pm-11pm. So you do 2 protein shakes, 2 protein bars and one meal per day. Meal to include lean meat (beef, fish, pork, turkey, chicken), or burkinan yogurt, or egg whites, or beans with a salad with olive oil and fruits (berries, pears, apples, kiwi). Avoid salt, breads, potatoes, rice, pasta, desserts. 3. Each shake would be drunk slowly, like coffee in a period of 2 hours. 4. Cut each bar in 4 pieces and eat each piece in 30min ?to make each bar last 2 hours. 5. I emphasized the importance of measuring accurately the food portion and measure it when serving the food in plate 6. The meal portions include 14 full-size forks of meat and 14 full-size forks of salad. You always eat the meat portion but you can replace up to 7 forks for salad/vegetables with rice, potatoes or pasta, or a fruit ?if you like. The less you do it the better weight loss will be. 7. One full-size fork is what it can be scooped on the fork without falling aside and not what can be bit with the fork. Use regular forks like those you find in a typical restaurant. 8.? Please buy the body composition scale we discussed and send me weight measurements as soon as possible and then once a week. Always include your diet and exercise plan. 9. The best choice would be to purchase a stationary bike at home that can track calories. If you get one, please start stationary bike at a resistance level of 4.0 Increase level by 1.0 every 3 min to a max level of 10.0. Stay at this level for 3 min and then return to level 4.0 and repeat same steps until 300 calories are burned. Goal is to burn 2000 calories per week on exercise 10. Goal is to lose at least 1.5-2lbs per week 11. Goal to lose 20% of your weight before surgery, which is about 100lbs. Ultimate weight goal: 324lbs before surgery 12. Please follow the diet plan exactly without any change. If you don't like something about the plan or you feel hungry you need to communicate with me so I can help you revise the plan. You should not change the plan yourself 13. To be scheduled for EGD to assess the stomach's anatomy. The possibility of biopsies was discussed. Patient needs to avoid use of NSAIDs and aspirin for 1 week prior to EGD. You must be on liquids only the day before your endoscopy. Risks of perforation and bleeding was discussed with the patient. This will be an outpatient procedure with IV sedation. 14. Emphasized the importance of checking his blood glucose levels frequently and daily and to report to me any blood glucose below 100, so I can adjust his insulin and prevent hypoglycemic episodes 15. Emphasized the importance of monitoring the blood pressure daily in am when wakes up and two more times throughout the day. If systolic blood pressure is 110 mmHg, or less I explained to the patient that needs to notify me. Also I explained the symptoms of orthostatic hypotension (dizziness and lightheadedness) for which the patient also needs to notify me.
== END 2025-04-25 11:10 | disposition home or self-care (01) ==
PROVIDERS: PCP Internal Medicine; Visit Provider Surgery
DX: E66.01 Morbid (severe) obesity due to excess calories (principal); Z68.45 Body mass index [BMI] 70 or greater, adult
CPT/HCPCS: 99205